=== PATIENT | female | born 1970 | race Two or more races ===

== ENCOUNTER 2024-10-08 06:11 | Inpatient (IN) | payer BC ==
[~2024-10-08] VITALS: Ht 165.1 cm; Wt 80.2 kg
[~2024-10-08 06:11] MED LIST: ATOR-507 PO; CHOLCAP4 PO; DIVA-139 PO; LEVO25CA3 PO; SERT-206 PO
[2024-10-08] MEDS ORDERED: DexAMETHasone SOD PHOS 10MG/1ML VIAL INJ ONE (07:22)
[2024-10-08] MEDS ORDERED: fentaNYL CITRATE 100 MCG/2 ML VL ONE (07:22)
[2024-10-08] MEDS ORDERED: MEPERIDINE HCL (50 MG/ML) 1 ML VIAL ONE (07:22)
[2024-10-08] MEDS ORDERED: MIDAZOLAM HCL 2MG/2ML 2ml VIAL (1mg/ml) ONE (07:22)
[2024-10-08] MEDS ORDERED: PROPOFOL 10 MG/ML 20 ML IV ONE (07:25)
[2024-10-08] MEDS: CIPROFLOXACIN 400MG/200ML 200 ML IV ONE (07:54)
[2024-10-08] MEDS: SUCCINYLCHOLINE CHLORIDE 20 MG/ML 10ML VIAL IV ONE (08:01)
[2024-10-08] MEDS: IOHEXOL 300 MG/ML 100ML BOTTLE IJ ONE (08:24)
[2024-10-08] MEDS ORDERED: MIDAZOLAM HCL 2MG/2ML 2ml VIAL (1mg/ml) IV PRN (08:30)
[2024-10-08] MEDS ORDERED: HYDROmorphone HCL 2 MG/ML VL/or syr IV PRN (08:30)
[2024-10-08] MEDS ORDERED: ePHEDrine SULFATE 50 MG/ML AMP IV PRN (08:30)
[2024-10-08] MEDS ORDERED: MORPHINE SULFATE 4 MG/ML SYR/VIAL IV PRN (08:30)
[2024-10-08] MEDS: ONDANSETRON HCL 4 MG/2 ML VIAL IV ONE (08:30)
[2024-10-08] MEDS ORDERED: hydrALAZINE HCL 20 MG/ML VL IV PRN ×2 (08:30→18:15)
[2024-10-08] MEDS: KETOROLAC TROMETH 30 MG/ML 1ML VIAL IV ONE (08:30)
[2024-10-08 09:38] VITALS: RESP 14; O2SAT 97
[2024-10-08] MEDS ORDERED: NITROGLYCERIN 0.4 MG SL TAB SL PRN (09:45)
--- NOTE | 2024-10-08 09:48 | POSTOP ---
Post-Operative Note Post-Operative Note Preop Diagnosis Left nephrolithiasis Left flank pain Postop Diagnosis: Left calyceal diverticular stone Operation performed Left ureteroscopic laser lithotripsy with left ureteral stent placement Left calyceal diverticulectomy Jung insertion Specimen Left renal stones Anesthesia: General Anesthesiologist: Tish Surgeon Parrish Angel Complications & Mgmt Postoperatively patient will be admitted for observation due to excess bleeding from the kidney from the calyceal diverticulotomy Date 10/08/24 Time 09:46 PARRISH ANGEL MD Oct 08, 2024 09:48
--- NOTE | 2024-10-08 10:35 | DVH ---
FLUOROSCOPY TIME: 73.6 seconds TECHNIQUE: Intraoperative radiographs of the abdomen were obtained. COMPARISON: None FINDINGS: Refer to intraoperative report for further evaluation. IMPRESSION: Refer to intraoperative report for further evaluation.
--- NOTE | 2024-10-08 10:35 | DVH ---
FLUOROSCOPY TIME: 73.6 seconds TECHNIQUE: Intraoperative radiographs of the abdomen were obtained. COMPARISON: None FINDINGS: Refer to intraoperative report for further evaluation. IMPRESSION: Refer to intraoperative report for further evaluation.
[2024-10-08 11:19] LABS: Hematocrit 39.2 % (36.0-46.0); Hemoglobin 12.9 g/dL (12.2-16.2)
[2024-10-08] MEDS ORDERED: ETOMIDATE (2MG/ML) 20ML VIAL IV ONE (12:00)
[2024-10-08] MEDS ORDERED: ACETAMINOPHEN IV 100 ML IV ONE (12:07)
[2024-10-08 13:12] VITALS: BP 123/70; PULSE 64; RESP 18; TEMP 97.5; O2SAT 100
[2024-10-08 13:19] VITALS: BP 123/70; PULSE 64; RESP 18; TEMP 97.5; O2SAT 100
--- NOTE | 2024-10-08 15:43 | DVHHP2 ---
Review of Systems Allergies: Coded Allergies: NO KNOWN ALLERGIES (Unverified , 10/06/24) Medications Current Medications Medications Dose Ordered Sig/Silvia Route Start Time Stop Time Status Last Admin Dose Admin Nitroglycerin 0.4 mg Q5MINP PRN SL 10/08/24 09:45 Morphine Sulfate 2 mg Q30M PRN IV 10/08/24 09:45 Exam Vital Signs Vital Signs Date Time Temp Pulse Resp B/P (MAP) Pulse Ox O2 Delivery O2 Flow Rate FiO2 10/08/24 13:19 97.5 64 18 123/70 (87) 100 97.5 10/08/24 10:45 Mask 10.0 100 Labs/Xrays Labs Test 10/08/24 11:07 Range/Units Hemoglobin 12.9 12.2-16.2 g/dL Hematocrit 39.2 36.0-46.0 % Assessment/Plan Assessment/Plan see dictated note Plan discussed with: Patient, Spouse My Orders Orders - JENN GUAJARDO MD Procedure Category Date Status Time Morphine Sulfate PHA 10/08/24 Verified Injection 15:45 Hydrocodone-Acet PHA 10/08/24 Verified 5/325mg Tab (Addison 15:45 Acetaminophen Tablet PHA 10/08/24 Verified (Tylenol Tablet) 15:45 Ondansetron Hcl PHA 10/08/24 Verified (Zofran) 15:45 Levothyroxine Tablet PHA 10/09/24 Verified (Synthroid Tablet) 06:00 Sertraline Hcl PHA 10/09/24 Verified (Zoloft) 10:00 NS PHA 10/08/24 Verified 15:45 Complete Blood Count LAB 10/09/24 Verified 06:00 Comprehensive LAB 10/09/24 Verified Metabolic Panel 06:00 Thyroid Stimulating LAB 10/09/24 Verified Hormone 05:00 Date of Service: Oct 08, 2024 Billing Provider: JENN GUAJARDO MD Common Visit Codes: [id number] INP/OBS CARE (HIGH) JENN GUAJARDO MD Oct 08, 2024 15:43
[2024-10-08] MEDS: SODIUM CHLORIDE 0.9% 1,000 ML IV SCH (15:49)
[2024-10-08] MEDS: HYDROcodone-ACET 5/325MG TAB PO PRN (16:00)
--- NOTE | 2024-10-08 16:00 | DVHHP ---
ADMIT DATE: 10/08/2024 HISTORY OF PRESENT ILLNESS: The patient is a 54-year-old lady who was admitted after she underwent left ureteroscopic laser lithotripsy and developed some bleeding from the kidney from calyceal diverticulotomy. The patient at this time complains of lower abdominal pain. No nausea or vomiting. No chest pain or shortness of breath. REVIEW OF SYSTEMS: Review of rest of systems are otherwise currently negative. PAST MEDICAL HISTORY: Significant for depression, hypothyroidism, and hyperlipidemia. MEDICATIONS: Include Lipitor, sertraline, and levothyroxine. ALLERGIES: No known drug allergies. SOCIAL HISTORY: Denies smoking or alcohol. Lives at home with her . FAMILY HISTORY: Negative. PHYSICAL EXAMINATION: GENERAL: The patient is awake, alert. VITAL SIGNS: Temperature of 97.5, pulse 64 per minute, blood pressure 123/70. SHEENT: Unremarkable. NECK: There is no JVD, no pedal edema. LUNGS: Equal bilaterally. No added sounds. CARDIOVASCULAR: S1, S2 is regular, no murmurs. ABDOMEN: Soft. There is tenderness in the lower abdomen. NEUROLOGIC: Nonfocal. MUSCULOSKELETAL: Normal. GENITOURINARY: The patient has a Jung catheter in place with blood-tinged urine in the bag. ASSESSMENT AND PLAN: * Hypothyroidism for which she will continue on levothyroxine and TSH will be checked. * Depression for which she will continue on Zoloft. * Hyperlipidemia. * Status post laser lithotripsy for left renal calculus. The patient will be monitored for hematuria and placed on IV fluids as well as pain medications. MD TERESA Frances/LAMONTE TID: [id number] RECEIPT: [id number]
[2024-10-08] MEDS ORDERED: ACETAMINOPHEN IV 1000 MG/100ML (10MG/ML) IV PRN (16:45)
[2024-10-08 17:12] VITALS: BP 119/65; PULSE 72; RESP 18; TEMP 98.1; O2SAT 100
[2024-10-08] MEDS: LORazepam 2MG/ML-1ML VIAL ONE ×2 (17:29→17:39)
[2024-10-08] MEDS ORDERED: LORazepam 2MG/ML-1ML VIAL IV ONE (17:45)
[2024-10-08] MEDS ORDERED: LORazepam 2MG/ML-1ML VIAL IV PRN (18:15)
[2024-10-08 19:04] LABS: Potassium 3.9 mmol/L (3.5-5.1); Sodium 140 mmol/L (136-145)
[2024-10-08 19:05] LABS: Anion Gap 11 (5-15); Calcium 9.4 mg/dL (8.7-10.4); Carbon Dioxide 21 mmol/L (20-31)
[2024-10-08 19:10] LABS: BUN/Creatinine Ratio 12.5 (10.0-20.0); Blood Urea Nitrogen 11 mg/dL (9-23)
[2024-10-08 19:14] LABS: Chloride 108 mmol/L (98-107); Glucose 149 mg/dL (74-106); Magnesium 1.6 mg/dL (1.6-2.6)
[2024-10-08 19:42] LABS: Lactic Acid w/Reflex 4.2 mmol/L (0.4-2.0)
[2024-10-08] MEDS: ONDANSETRON HCL 4 MG/2 ML VIAL IV PRN (19:56)
[2024-10-08 20:00] VITALS: RESP 16
[2024-10-08 21:00] VITALS: BP 111/62; PULSE 95; RESP 20; TEMP 99; O2SAT 96
[2024-10-08] MEDS: ACETAMINOPHEN 325 MG TAB PO PRN (22:49)
[2024-10-09] VITALS (8 sets, daily range): BP systolic 92–122; BP diastolic 46–75; PULSE 84–116; RESP 16–19; TEMP 98.2–100.3; O2SAT 96–99
[2024-10-09] MEDS: LEVOTHYROXINE SODIUM 25 MCG TAB PO SCH (05:20)
[2024-10-09 07:47] LABS: Basophils # (auto) 0 10 ^3/uL (0-0.2); Basophils % (auto) 0.1 % (0.0-2.0); Eosinophils # (auto) 0 10 ^3/uL (0-0.8); Hematocrit 37.3 % (36.0-46.0); Hemoglobin 11.9 g/dL (12.2-16.2); Lymphocytes # (auto) 0.7 10 ^3/uL (0.4-5.4); Lymphocytes % (auto) 4.5 % (10.0-50.0); Mean Corpuscular Hemoglobin 27.9 pg (28.0-32.0); Mean Corpuscular Volume 87.1 fL (80.0-100.0); Monocytes # (auto) 0.8 10 ^3/uL (0-1.3); Monocytes % (auto) 5.1 % (0.0-12.0); Neutrophils # (auto) 14.5 10 ^3/uL (1.6-8.6); Neutrophils % (auto) 90.3 % (37.0-80.0); Nucleated Red Blood Cells % 0.2 %; Platelet Count (auto) 169 10^3/uL (140-450); Red Blood Cells 4.29 10^6/uL (4.0-5.20); Red Cell Distribution Width 14.3 % (11.8-14.3)
[2024-10-09 07:59] LABS: Albumin 3.4 g/dL (3.2-4.8); Alkaline Phosphatase 89 U/L (46-116); Anion Gap 10 (5-15); BUN/Creatinine Ratio 15.9 (10.0-20.0); Bilirubin, Total 0.7 mg/dL (0.2-1.0); Blood Urea Nitrogen 17 mg/dL (9-23); Calcium 8.9 mg/dL (8.7-10.4); Carbon Dioxide 23 mmol/L (20-31); Chloride 107 mmol/L (98-107); Sodium 140 mmol/L (136-145); Total Protein 5.7 g/dL (5.7-8.2)
[2024-10-09 08:01] LABS: Alanine Aminotransferase 297 U/L (7-40); Aspartate Aminotransferase 150 U/L (13-40); Glucose 136 mg/dL (74-106)
--- NOTE | 2024-10-09 09:33 | DVH ---
EXAM: CT HEAD WITHOUT CONTRAST HISTORY: S/P SEIZURES COMPARISON: None TECHNIQUE: Axial images of the head were obtained and reformatted in coronal and sagittal planes. All CT scans at this medical facility are performed using dose modulation techniques as appropriate t o a performed exam including the following: Automated exposure control was utilized; adjustment of th e MA and/or KV according to patient size; and use of iterative reconstruction technique. CT Dose: CTDI volume is 56.78 mGy. Dose-length product is 796.63 mGy*cm FINDINGS: There is no evidence of acute intracranial hemorrhage, mass, mass effect midline shift. There is no h ydrocephalus or extra-axial fluid collection. Trammell-white matter differentiation is maintained. The visualized paranasal sinuses and mastoid air cells are clear. The calvarium is intact. IMPRESSION: 1. No acute intracranial process. HS:Y
--- NOTE | 2024-10-09 09:36 | DVHPN2 ---
Progress Note - Dictate Date Seen: Oct 09, 2024 Medical Necessity Reason Pt with a Central, PICC or Fol: Yes The following are medically ne: Solomon Catheter Reason for solomon catheter: Bladder Retention/Obstruc vital signs Vital Sign Date Time Temp Pulse Resp B/P (MAP) Pulse Ox O2 Delivery O2 Flow Rate FiO2 10/09/24 09:00 98.2 84 18 92/50 (64) 99 98.2 10/08/24 20:00 Nasal Cannula* 3 32 Total Intake and Output 10/08/24 10/08/24 10/09/24 15:00 23:00 07:00 Intake Total 200 ml 435 ml 500 ml Output Total 800 ml 1200 ml Balance 200 ml -365 ml -700 ml medications Current Medications Medications Dose Ordered Sig/Silvia Route Start Time Stop Time Status Last Admin Dose Admin Nitroglycerin 0.4 mg Q5MINP PRN SL 10/08/24 09:45 Morphine Sulfate 2 mg Q30M PRN IV 10/08/24 09:45 Morphine Sulfate 2 mg Q4HPRN PRN IV 10/08/24 15:45 Acetaminophen/ Hydrocodone Bitart 1 tab Q6HPRN PRN PO 10/08/24 15:45 10/08/24 16:00 1 TAB Acetaminophen 650 mg Q6HP PRN PO 10/08/24 15:45 10/09/24 05:20 650 MG Ondansetron HCl 4 mg Q6HPRN PRN IV 10/08/24 15:45 10/09/24 05:25 4 MG Levothyroxine Sodium 25 mcg QAM@0600 PO 10/09/24 06:00 10/09/24 05:20 25 MCG Sertraline HCl 50 mg DAILY PO 10/09/24 10:00 Sodium Chloride 1,000 ml @ 75 mls/hr [id number] IV 10/08/24 15:45 10/08/24 15:49 75 MLS/HR Lorazepam 1 mg Q6HP PRN IV 10/08/24 18:15 Hydralazine HCl 10 mg Q6HP PRN IV 10/08/24 18:15 Divalproex Sodium 250 mg BID PO 10/08/24 22:00 10/08/24 21:20 250 MG laboratory and microbiology Laboratory Tests 10/09/24 06:53 Test 10/09/24 06:53 Range/Units Serum Glucose 136 H 74-106 mg/dL Assessment/Plan CT A/P non con keep solomon monitor H&H Problems(with codes): (1) Hematuria (2) Calyceal diverticulum (3) Renal stone Prognosis good Plan discussed with: Patient SILAS VU NP Oct 09, 2024 09:36
[2024-10-09] MEDS ORDERED: SERTRALINE HCL 50 MG TAB PO SCH (10:00)
--- NOTE | 2024-10-09 10:40 | DVH ---
CT ABDOMEN AND PELVIS WITHOUT CONTRAST CLINICAL HISTORY: hematuria post op calyceal diverticulectomy TECHNIQUE: Multiple contiguous axial images of the abdomen and pelvis without intravenous contrast. The images were reformatted degenerate coronal and sagittal reconstructions. All CT scans at this medical facility are performed using dose modulation techniques as appropriate t o a performed exam including the following:Automated exposure control was utilized; adjustment of the MA and/or KV according to patient size; and use of iterative reconstruction technique. Radiation Dose Information: CT Dose: CTDI volume is 9.03 mGy. Dose-length product is 469.01 mGy*cm Comparison: None FINDINGS: Evaluation of the abdomen and pelvis is limited without intravenous contrast. There are multiple bilateral subcentimeter renal calculi, largest in the left lower pole measuring 9 mm. There is a left ureteral stent with the proximal loop in the left renal pelvis and the distal loo p along the left posterolateral bladder. There is no evidence of hydronephrosis or hydroureter. There is moderate amount of perinephric fat stranding surrounding the left kidney and along the left urete r which May relate to placement of the ureteral stent. There is diffuse fatty infiltration of the liver. Gallbladder is surgically absent. The pancreas , kidneys, adrenal glands, and spleen appear within normal limits. There is no gross evidence of abdominal lymphadenopathy. There is no free fluid or free air. The stomach grossly appears unremarkable. The small and large bowel loops demonstrate normal caliber . The abdominal aorta and IVC appear within normal limits. There is a Jung catheter within the bladder which is decompressed. There is no obvious bladder calcu lindsay. . There is no gross evidence of a pelvic mass. There is no free fluid collection. There is scarring versus atelectasis in the posterior lung bases. There is no acute osseous abnormality. IMPRESSION: 1. Multiple bilateral subcentimeter renal calculi, the largest in the left lower pole measuring 9 mm. There is no evidence of hydronephrosis. 2. Left ureteral stent is in place. There is no evidence of a ureteral calculus or hydroureter. There is moderate amount of fat stranding surrounding the left kidney and along the left ureter which May relate to placement of the stent. 3. Hepatic steatosis. 4. Cholecystectomy. HS:Y
--- NOTE | 2024-10-09 10:47 | DVHPN2 ---
Subjective Feeling very weak with increasing left flank pain Reviewed: Care Plan, H&P, Labs, Medications, Previous Orders, Radiology, Other (Consultation) Changes from previous H/P or p: Changes Objective Vitals Vital Signs Date Time Temp Pulse Resp B/P (MAP) Pulse Ox O2 Delivery O2 Flow Rate FiO2 10/09/24 09:00 98.2 84 18 92/50 (64) 99 98.2 10/08/24 20:00 Nasal Cannula* 3 32 Intake/Output Intake and Output 10/09/24 07:00 Intake Total 1135 ml Output Total 2000 ml Balance -865 ml Intake Oral 710 ml IV Total 425 ml Output Urine Total 2000 ml General Appearance: Alert, Oriented X3, Cooperative, moderate distress, Other (Sweaty) HEENT: Atraumatic Lungs: Clear to auscultation, Normal air movement Cardiovascular: Normal S1, Normal S2, Other (Tachycardia) Abdomen: Normal bowel sounds, Soft, Other (Left CVA/flank tenderness) Genitourinary: Other (Jung's) Neuro: Normal speech, Cranial nerves 3-12 NL Psych/Mental Status: Mental status NL Medications Current Medications Medications Dose Ordered Sig/Silvia Route Start Time Stop Time Status Last Admin Dose Admin Nitroglycerin 0.4 mg Q5MINP PRN SL 10/08/24 09:45 Morphine Sulfate 2 mg Q30M PRN IV 10/08/24 09:45 Morphine Sulfate 2 mg Q4HPRN PRN IV 10/08/24 15:45 Acetaminophen/ Hydrocodone Bitart 1 tab Q6HPRN PRN PO 10/08/24 15:45 10/08/24 16:00 1 TAB Acetaminophen 650 mg Q6HP PRN PO 10/08/24 15:45 10/09/24 05:20 650 MG Ondansetron HCl 4 mg Q6HPRN PRN IV 10/08/24 15:45 10/09/24 05:25 4 MG Levothyroxine Sodium 25 mcg QAM@0600 PO 10/09/24 06:00 10/09/24 05:20 25 MCG Sertraline HCl 50 mg DAILY PO 10/09/24 10:00 Sodium Chloride 1,000 ml @ 75 mls/hr [id number] IV 10/08/24 15:45 10/08/24 15:49 75 MLS/HR Lorazepam 1 mg Q6HP PRN IV 10/08/24 18:15 Hydralazine HCl 10 mg Q6HP PRN IV 10/08/24 18:15 Divalproex Sodium 250 mg BID PO 10/08/24 22:00 10/08/24 21:20 250 MG Laboratory Results Laboratory Tests 10/09/24 06:53 Chemistry Test 10/08/24 18:28 12 06:53 Calcium Level 9.4 mg/dL (8.7-10.4) 8.9 mg/dL (8.7-10.4) Magnesium Level 1.6 mg/dL (1.6-2.6) Albumin 3.4 g/dL (3.2-4.8) Total Protein 5.7 g/dL (5.7-8.2) LFT Test 10/09/24 06:53 Alanine Aminotransferase (ALT) 297 U/L (7-40) H Alkaline Phosphatase 89 U/L (46-116) Aspartate Amino Transferase (AST) 150 U/L (13-40) H Total Bilirubin 0.7 mg/dL (0.2-1.0) HgA1c, TSH Test 10/08/24 18:28 12 06:53 Thyroid Stimulating Hormone (TSH) 0.97 uIU/mL (0.55-4.78) 0.81 uIU/mL (0.55-4.78) Microbiology Microbiology Date/Time Source Procedure Growth Status 10/08/24 18:28 Blood Blood Culture - Preliminary Resulted Labs and/or images reviewed: Labs reviewed by me, Image(s) reviewed by me Assessment/Plan Assessment/Plan Covering Dr. Dumont: #Sepsis with fever, tachycardic, leukocytosis and lactic acidosis due to Gram negative rods bacteremia secondary to complicated UTI; reviewed the blood culture; started broad-spectrum IV antibiotics; ordered repeat blood cultures; continue monitoring #BRANDON; most likely vasomotor nephropathy; avoid nephrotoxic agents; continue IV fluids; continue monitoring #Left flank pain secondary to left renal stones status post laser lithotripsy status post Jung's catheter; continue IV fluids; urology is following; continue pain management as indicated; continue monitoring #Hypothyroidism; continue levothyroxine; continue monitoring #Dyslipidemia; continue current medical management; continue monitoring #Depression; no suicide ideation/plans; continue current medical management; continue monitoring #Obesity; counseled the patient on the importance of adopting healthy lifestyle with diet and exercise in order to lose weight; continue monitoring Goals of care discussed for 20 minutes; full code. Late Entry. This medical document was created using an electronic medical record system with computerized dictation system. Although this document has been carefully reviewed, there might still be some phonetic and typographical errors. These areas are purely typographical due to imperfections of the software programs, and do not reflect any compromise in the patient's medical care. Plan discussed with: Patient, Other (Nurse) Date of Service: Oct 09, 2024 Billing Provider: MUKESH NORMAN MD Common Visit Codes: [id number] INP/OBS CARE(HIGH) Secondary Visit Codes: [id number] CARE PLAN 30 MINUTES (20 minutes) MUKESH NORMAN MD Oct 09, 2024 10:47
[2024-10-09] MEDS: cefTRIAXone 1GM/50ML D5W 50 ML IV ONE (11:21)
[2024-10-09] MEDS: SERTRALINE HCL 50 MG TAB PO SCH (11:22)
[2024-10-09] MEDS ORDERED: cefEPIME 1gm INJ VIAL IM ONE (12:45)
[2024-10-09] MEDS ORDERED: VANCOMYCIN PER PHARMACY 0 MG IV SCH (12:45)
[2024-10-09] MEDS: VANCOMYCIN 1GM/250ML KIT 250 ML IV SCH (14:02)
[2024-10-09] MEDS: CEFEPIME 1GM/ 50ML 50 ML IV ONE (17:58)
[2024-10-10] VITALS (7 sets, daily range): BP systolic 106–134; BP diastolic 60–80; PULSE 94–117; RESP 16–19; TEMP 98.8–101.5; O2SAT 95–99
[2024-10-10] MEDS: VANCOMYCIN 1GM/250ML KIT 250 ML IV SCH (05:15)
[2024-10-10 08:25] LABS: Hematocrit 35.7 % (36.0-46.0); Hemoglobin 12.2 g/dL (12.2-16.2); Mean Corpuscular Hemoglobin 29.6 pg (28.0-32.0); Mean Corpuscular Hgb Conc. 34.1 g/dL (32.0-36.0); Mean Corpuscular Volume 86.6 fL (80.0-100.0); Platelet Count (auto) 123 10^3/uL (140-450); Red Blood Cells 4.12 10^6/uL (4.0-5.20); Red Cell Distribution Width 14.3 % (11.8-14.3); White Blood Cell 9.9 10^3/uL (4.4-10.8)
[2024-10-10 08:29] LABS: Albumin 3.3 g/dL (3.2-4.8); Alkaline Phosphatase 99 U/L (46-116); Anion Gap 6 (5-15); BUN/Creatinine Ratio 14.5 (10.0-20.0); Blood Urea Nitrogen 16 mg/dL (9-23); Carbon Dioxide 27 mmol/L (20-31); Chloride 104 mmol/L (98-107); Potassium 4.1 mmol/L (3.5-5.1); Sodium 137 mmol/L (136-145)
[2024-10-10 08:31] LABS: Bilirubin, Total 0.7 mg/dL (0.2-1.0); Total Protein 5.8 g/dL (5.7-8.2)
[2024-10-10 08:34] LABS: Alanine Aminotransferase 180 U/L (7-40); Aspartate Aminotransferase 61 U/L (13-40); Glucose 167 mg/dL (74-106)
[2024-10-10 08:57] LABS: Basophils % (manual) 0 (0.0-2.0); Blast Cells 0; Eosinophils % (manual) 0 (0-7); Metamyelocytes % 0; Myelocytes % 0; Promyelocytes % 0; Reactive Lymphocytes 0
[2024-10-10] MEDS ORDERED: cefTRIAXone 1GM/50ML D5W 50 ML IV SCH (09:00)
[2024-10-10 09:25] LABS: Band Neutrophils % (manual) 2; Lymphocytes % (manual) 11 (10.0-50.0); Monocytes % (manual) 15 (0-12)
[2024-10-10 09:43] LABS: Platelet Estimate Decreased
[2024-10-10] MEDS: CEFEPIME 2GM/50ML NS 50 ML IV SCH (10:04)
--- NOTE | 2024-10-10 12:17 | DVHPN2 ---
Subjective The patient seen and examined at bedside. Still complain of flank pain. Patient is nauseated but no vomiting. Reviewed: Care Plan, H&P, Labs, Medications, Previous Orders, Radiology Changes from previous H/P or p: No Changes Objective Vitals Vital Signs Date Time Temp Pulse Resp B/P (MAP) Pulse Ox O2 Delivery O2 Flow Rate FiO2 10/10/24 09:01 100.1 10/10/24 09:00 117 16 124/75 (91) 98 10/09/24 20:00 Nasal Cannula* 3 32 Intake/Output Intake and Output 10/10/24 07:00 Intake Total 1500 ml Output Total 1375 ml Balance 125 ml Intake Oral 1500 ml Output Urine Total 1375 ml # Bowel Movements 3 General Appearance: Alert, Oriented X3, Cooperative, No acute distress HEENT: Atraumatic, PERRLA, EOMI, Mucous membr. moist/pink Neck: Supple Lungs: Clear to auscultation, Normal air movement Cardiovascular: Regular rate, Normal S1, Normal S2, No murmurs, Gallops, Rubs Abdomen: Normal bowel sounds, Soft, No tenderness Neuro: Cranial nerves 3-12 NL Psych/Mental Status: Mental status NL Medications Current Medications Medications Dose Ordered Sig/Silvia Route Start Time Stop Time Status Last Admin Dose Admin Nitroglycerin 0.4 mg Q5MINP PRN SL 10/08/24 09:45 Morphine Sulfate 2 mg Q30M PRN IV 10/08/24 09:45 Morphine Sulfate 2 mg Q4HPRN PRN IV 10/08/24 15:45 Acetaminophen/ Hydrocodone Bitart 1 tab Q6HPRN PRN PO 10/08/24 15:45 10/10/24 02:50 1 TAB Acetaminophen 650 mg Q6HP PRN PO 10/08/24 15:45 10/10/24 09:01 650 MG Ondansetron HCl 4 mg Q6HPRN PRN IV 10/08/24 15:45 10/09/24 18:13 4 MG Levothyroxine Sodium 25 mcg QAM@0600 PO 10/09/24 06:00 10/10/24 05:15 25 MCG Sertraline HCl 50 mg DAILY PO 10/09/24 10:00 10/10/24 10:04 50 MG Sodium Chloride 1,000 ml @ 75 mls/hr [id number] IV 10/08/24 15:45 10/10/24 07:45 75 MLS/HR Lorazepam 1 mg Q6HP PRN IV 10/08/24 18:15 Hydralazine HCl 10 mg Q6HP PRN IV 10/08/24 18:15 Divalproex Sodium 250 mg BID PO 10/08/24 22:00 10/10/24 10:04 250 MG Vancomycin HCl 0 ml @ 0 mls/hr UD IV 10/09/24 12:45 Vancomycin HCl 250 ml @ 250 mls/hr Q12H IV 10/10/24 05:00 10/10/24 05:15 250 MLS/HR Cefepime HCl 50 ml @ 12.5 mls/hr Q12HR IV 10/10/24 10:00 10/10/24 10:04 12.5 MLS/HR Laboratory Results Laboratory Tests 10/10/24 06:50 Chemistry Test 10/10/24 06:50 Albumin 3.3 g/dL (3.2-4.8) Calcium Level 9.0 mg/dL (8.7-10.4) Total Protein 5.8 g/dL (5.7-8.2) LFT Test 10/10/24 06:50 Alanine Aminotransferase (ALT) 180 U/L (7-40) H Alkaline Phosphatase 99 U/L (46-116) Aspartate Amino Transferase (AST) 61 U/L (13-40) H Total Bilirubin 0.7 mg/dL (0.2-1.0) Microbiology Microbiology Date/Time Source Procedure Growth Status 10/09/24 15:28 Blood Blood Culture - Preliminary Resulted 10/09/24 14:10 Urine - Jung Port Urine Culture - Preliminary Resulted Labs and/or images reviewed: Labs reviewed by me Assessment/Plan Assessment/Plan #Sepsis with fever, tachycardic, leukocytosis and lactic acidosis due to Gram negative rods bacteremia secondary to complicated UTI; reviewed the blood culture; started broad-spectrum IV antibiotics: Vancomycin and Cefepime; we will follow up with repeat blood cultures and urine culture; continue monitoring #BRANDON; most likely vasomotor nephropathy; avoid nephrotoxic agents; continue IV fluids; continue monitoring #Left flank pain secondary to left renal stones status post laser lithotripsy status post Jung's catheter; continue IV fluids; urology is following; continue pain management as indicated; continue monitoring #Hypothyroidism; continue levothyroxine; continue monitoring #Dyslipidemia; continue current medical management; continue monitoring #Depression; no suicide ideation/plans; continue current medical management; continue monitoring #Obesity; counseled the patient on the importance of adopting healthy lifestyle with diet and exercise in order to lose weight; continue monitoring This medical document was created using an electronic medical record system with [employer] computerized dictation system. Although this document has been carefully reviewed, there may still be some phonetic and typographical errors. These areas are purely typographical due to imperfections of the software programs, and do not reflect any compromise in the patient's medical care. Plan discussed with: Patient, Spouse Date of Service: Oct 10, 2024 Billing Provider: LUKE ALTAMIRANO MD Common Visit Codes: [id number] INP/OBS CARE(HIGH) LUKE ALTAMIRANO MD Oct 10, 2024 12:17
[2024-10-11] VITALS (9 sets, daily range): BP systolic 90–136; BP diastolic 58–78; PULSE 68–99; RESP 17–20; TEMP 98.5–100.9; O2SAT 86–100
[2024-10-11] MEDS: MORPHINE SULFATE INJ 2 MG/ml SYRG IV PRN ×2 (00:59→08:38)
[2024-10-11 07:57] LABS: Hematocrit 34.3 % (36.0-46.0); Hemoglobin 11.4 g/dL (12.2-16.2); Mean Corpuscular Hemoglobin 28.7 pg (28.0-32.0); Mean Corpuscular Hgb Conc. 33.3 g/dL (32.0-36.0); Mean Corpuscular Volume 86.1 fL (80.0-100.0); Platelet Count (auto) 120 10^3/uL (140-450); Red Blood Cells 3.99 10^6/uL (4.0-5.20); Red Cell Distribution Width 14.1 % (11.8-14.3); White Blood Cell 7.9 10^3/uL (4.4-10.8)
[2024-10-11 08:09] LABS: Basophils % (manual) 0 (0.0-2.0); Blast Cells 0; Eosinophils % (manual) 0 (0-7); Metamyelocytes % 0; Myelocytes % 0; Promyelocytes % 0; Reactive Lymphocytes 0
[2024-10-11 08:38] LABS: Band Neutrophils % (manual) 3; Lymphocytes % (manual) 3 (10.0-50.0); Monocytes % (manual) 18 (0-12)
[2024-10-11 08:39] LABS: Large Platelets FEW; Platelet Estimate Decreased
--- NOTE | 2024-10-11 13:09 | DVHPN2 ---
Subjective The patient is seen and examined at bedside. She still complain of flank pain and not feeling so well. She nauseated but no vomiting. Reviewed: Care Plan, H&P, Labs, Medications, Previous Orders, Radiology, Other (Consultation) Changes from previous H/P or p: No Changes Objective Vitals Vital Signs Date Time Temp Pulse Resp B/P (MAP) Pulse Ox O2 Delivery O2 Flow Rate FiO2 10/11/24 09:00 100.9 89 20 136/73 (94) 100 100.9 10/10/24 20:00 Nasal Cannula* 3 32 Intake/Output Intake and Output 10/11/24 07:00 Intake Total 1300 ml Output Total 2450 ml Balance -1150 ml Intake Oral 800 ml IV Total 500 ml Output Urine Total 2450 ml General Appearance: Alert, Oriented X3, Cooperative, moderate distress, Other (Sweaty) HEENT: Atraumatic Lungs: Clear to auscultation, Normal air movement Cardiovascular: Normal S1, Normal S2, Other (Tachycardia) Abdomen: Normal bowel sounds, Soft, Other (Left CVA/flank tenderness) Genitourinary: Other (Jung's) Neuro: Normal speech, Cranial nerves 3-12 NL Psych/Mental Status: Mental status NL Medications Current Medications Medications Dose Ordered Sig/Silvia Route Start Time Stop Time Status Last Admin Dose Admin Nitroglycerin 0.4 mg Q5MINP PRN SL 10/08/24 09:45 Morphine Sulfate 2 mg Q30M PRN IV 10/08/24 09:45 10/11/24 08:38 2 MG Morphine Sulfate 2 mg Q4HPRN PRN IV 10/08/24 15:45 10/11/24 00:59 2 MG Acetaminophen/ Hydrocodone Bitart 1 tab Q6HPRN PRN PO 10/08/24 15:45 10/10/24 15:12 1 TAB Acetaminophen 650 mg Q6HP PRN PO 10/08/24 15:45 10/11/24 08:38 650 MG Ondansetron HCl 4 mg Q6HPRN PRN IV 10/08/24 15:45 10/11/24 00:56 4 MG Levothyroxine Sodium 25 mcg QAM@0600 PO 10/09/24 06:00 10/11/24 05:34 25 MCG Sertraline HCl 50 mg DAILY PO 10/09/24 10:00 10/11/24 08:35 50 MG Sodium Chloride 1,000 ml @ 75 mls/hr [id number] IV 10/08/24 15:45 10/10/24 21:09 75 MLS/HR Lorazepam 1 mg Q6HP PRN IV 10/08/24 18:15 Hydralazine HCl 10 mg Q6HP PRN IV 10/08/24 18:15 Divalproex Sodium 250 mg BID PO 10/08/24 22:00 10/11/24 08:35 250 MG Vancomycin HCl 0 ml @ 0 mls/hr UD IV 10/09/24 12:45 Cefepime HCl 50 ml @ 12.5 mls/hr Q12HR IV 10/10/24 10:00 10/11/24 08:34 12.5 MLS/HR Laboratory Results Laboratory Tests 10/10/24 06:50 10/11/24 07:05 Microbiology Microbiology Date/Time Source Procedure Growth Status 10/09/24 15:28 Blood Blood Culture - Preliminary Resulted 10/09/24 14:10 Urine - Jung Port Urine Culture - Final Escherichia coli - ESBL Complete Labs and/or images reviewed: Labs reviewed by me Assessment/Plan Assessment/Plan #Sepsis with fever, tachycardic, leukocytosis and lactic acidosis due to Gram negative rods bacteremia secondary to complicated UTI; urine culture today shows ESBL E coli, sensitive to meropenem. Blood culture still pending #BRADNON; most likely vasomotor nephropathy; avoid nephrotoxic agents; continue IV fluids; continue monitoring #Left flank pain secondary to left renal stones status post laser lithotripsy status post Jung's catheter; continue IV fluids; urology is following; continue pain management as indicated; continue monitoring #Hypothyroidism; continue levothyroxine; continue monitoring #Dyslipidemia; continue current medical management; continue monitoring #Depression; no suicide ideation/plans; continue current medical management; continue monitoring #Obesity; counseled the patient on the importance of adopting healthy lifestyle with diet and exercise in order to lose weight; continue monitoring Discussed in length with and patient at bedside. The urine culture now come back with you ESBL so I am going to discontinuing vancomycin and cefepime and start the patient on meropenem 1 g IV Q 8 hours. We will follow up with blood culture. Continuing pain medication. Continuing with Zofran p.r.n. for nausea or vomiting. Plan discussed with: Patient, Spouse Date of Service: Oct 11, 2024 Billing Provider: LUKE ALTAMIRANO MD Common Visit Codes: [id number] INP/OBS CARE(HIGH) LUKE ALTAMIRANO MD Oct 11, 2024 13:09
--- NOTE | 2024-10-11 13:11 | DVHPN2 ---
Reviewed: Care Plan, H&P, Labs, Medications, Previous Orders, Radiology, Other (Consultation) Objective Vitals Vital Signs Date Time Temp Pulse Resp B/P (MAP) Pulse Ox O2 Delivery O2 Flow Rate FiO2 10/11/24 09:00 100.9 89 20 136/73 (94) 100 100.9 10/10/24 20:00 Nasal Cannula* 3 32 Intake/Output Intake and Output 10/11/24 07:00 Intake Total 1300 ml Output Total 2450 ml Balance -1150 ml Intake Oral 800 ml IV Total 500 ml Output Urine Total 2450 ml General Appearance: Alert, Oriented X3, Cooperative, moderate distress, Other (Sweaty) HEENT: Atraumatic Lungs: Clear to auscultation, Normal air movement Cardiovascular: Normal S1, Normal S2, Other (Tachycardia) Abdomen: Normal bowel sounds, Soft, Other (Left CVA/flank tenderness) Genitourinary: Other (Jung's) Neuro: Normal speech, Cranial nerves 3-12 NL Psych/Mental Status: Mental status NL Medications Current Medications Medications Dose Ordered Sig/Silvia Route Start Time Stop Time Status Last Admin Dose Admin Nitroglycerin 0.4 mg Q5MINP PRN SL 10/08/24 09:45 Morphine Sulfate 2 mg Q30M PRN IV 10/08/24 09:45 10/11/24 08:38 2 MG Morphine Sulfate 2 mg Q4HPRN PRN IV 10/08/24 15:45 10/11/24 00:59 2 MG Acetaminophen/ Hydrocodone Bitart 1 tab Q6HPRN PRN PO 10/08/24 15:45 10/10/24 15:12 1 TAB Acetaminophen 650 mg Q6HP PRN PO 10/08/24 15:45 10/11/24 08:38 650 MG Ondansetron HCl 4 mg Q6HPRN PRN IV 10/08/24 15:45 10/11/24 00:56 4 MG Levothyroxine Sodium 25 mcg QAM@0600 PO 10/09/24 06:00 10/11/24 05:34 25 MCG Sertraline HCl 50 mg DAILY PO 10/09/24 10:00 10/11/24 08:35 50 MG Sodium Chloride 1,000 ml @ 75 mls/hr [id number] IV 10/08/24 15:45 10/10/24 21:09 75 MLS/HR Lorazepam 1 mg Q6HP PRN IV 10/08/24 18:15 Hydralazine HCl 10 mg Q6HP PRN IV 10/08/24 18:15 Divalproex Sodium 250 mg BID PO 10/08/24 22:00 10/11/24 08:35 250 MG Vancomycin HCl 0 ml @ 0 mls/hr UD IV 10/09/24 12:45 Cefepime HCl 50 ml @ 12.5 mls/hr Q12HR IV 10/10/24 10:00 10/11/24 08:34 12.5 MLS/HR Laboratory Results Laboratory Tests 10/10/24 06:50 10/11/24 07:05 Microbiology Microbiology Date/Time Source Procedure Growth Status 10/09/24 15:28 Blood Blood Culture - Preliminary Resulted 10/09/24 14:10 Urine - [place] Urine Culture - Final Escherichia coli - ESBL Complete LUKE ALTAMIRANO MD Oct 11, 2024 13:11
[2024-10-11] MEDS ORDERED: MEROPENEM 1GM IVPB 50 ML IV SCH (14:00)
[2024-10-11] MEDS ORDERED: VANCOMYCIN 750MG VIAL 750 MG in D5W 5% 250 ML IV SCH (18:00)
[2024-10-11] MEDS: MEROPENEM 1GM IVPB 50 ML IV SCH (18:23)
[2024-10-12] VITALS (8 sets, daily range): BP systolic 103–127; BP diastolic 60–78; PULSE 71–83; RESP 17–21; TEMP 98.1–98.7; O2SAT 95–99
[2024-10-12] MEDS: DOCUSATE SOD 100 MG CAP PO SCH (09:35)
[2024-10-12] MEDS: SODIUM CHLORIDE 0.9% 1,000 ML IV SCH (12:15)
--- NOTE | 2024-10-12 12:22 | DVHPN2 ---
Progress Note Date Seen: Oct 12, 2024 Medical Necessity Reason Pt with a Central, PICC or Fol: Yes The following are medically ne: Solomon Catheter Reason for solomon catheter: Bladder Retention/Obstruc Subjective Patient reports: No new complaints Review of Systems: HEENT:Normal, CVS:Normal, RESPIRATORY:Normal, GI:Normal, :Normal, MSK:Normal, NEURO:Normal Objective vital signs Vital Sign Date Time Temp Pulse Resp B/P (MAP) Pulse Ox O2 Delivery O2 Flow Rate FiO2 10/12/24 09:41 74 18 122/75 10/12/24 09:00 98.1 99 98.1 10/12/24 08:00 Nasal Cannula* 2 28 Total Intake and Output 10/11/24 10/11/24 10/12/24 15:00 23:00 07:00 Intake Total 250 ml 850 ml Output Total 800 ml 2000 ml Balance -550 ml -1150 ml medications Current Medications Medications Dose Ordered Sig/Silvia Route Start Time Stop Time Status Last Admin Dose Admin Nitroglycerin 0.4 mg Q5MINP PRN SL 10/08/24 09:45 Morphine Sulfate 2 mg Q30M PRN IV 10/08/24 09:45 10/11/24 08:38 2 MG Morphine Sulfate 2 mg Q4HPRN PRN IV 10/08/24 15:45 10/12/24 09:41 2 MG Acetaminophen/ Hydrocodone Bitart 1 tab Q6HPRN PRN PO 10/08/24 15:45 10/12/24 05:15 1 TAB Acetaminophen 650 mg Q6HP PRN PO 10/08/24 15:45 10/11/24 08:38 650 MG Ondansetron HCl 4 mg Q6HPRN PRN IV 10/08/24 15:45 10/11/24 22:47 4 MG Levothyroxine Sodium 25 mcg QAM@0600 PO 10/09/24 06:00 10/12/24 05:15 25 MCG Sertraline HCl 50 mg DAILY PO 10/09/24 10:00 10/12/24 09:35 50 MG Sodium Chloride 1,000 ml @ 75 mls/hr [id number] IV 10/08/24 15:45 10/12/24 05:12 75 MLS/HR Lorazepam 1 mg Q6HP PRN IV 10/08/24 18:15 Hydralazine HCl 10 mg Q6HP PRN IV 10/08/24 18:15 Divalproex Sodium 250 mg BID PO 10/08/24 22:00 10/12/24 09:35 250 MG Meropenem 50 ml @ 17 mls/hr Q8HR IV 10/11/24 14:00 UNV Meropenem 50 ml @ 17 mls/hr Q8H IV 10/11/24 16:00 10/12/24 09:34 17 MLS/HR Docusate Sodium 100 mg BID PO 10/12/24 10:00 10/12/24 09:35 100 MG Examination: GENERAL:Normal, HEENT:Normal, NECK:Normal, LUNGS:Normal, CVS:Normal, ABDOMEN:Normal, MSK:Normal, SKIN:Normal, NEURO:Normal, :Normal, :Abnormal (left flank tenderness) laboratory and microbiology Laboratory Tests 10/11/24 07:05 10/10/24 06:50 Test 10/10/24 06:50 Range/Units Serum Glucose 167 H 74-106 mg/dL Microbiology Date/Time Source Procedure Growth Status 10/09/24 15:28 Blood Blood Culture - Preliminary Resulted 10/09/24 14:10 Urine - [place] Urine Culture - Final Escherichia coli - ESBL Complete Problem List/Assessment/Plan Problem List/Assessment/Plan #1 sepsis with esbl ecoli: iv meropenem, ivf, repeat blood cultures, echo #2 Hypothyroidism for which she will continue on levothyroxine and TSH will be checked. #3 Depression for which she will continue on Zoloft. #4 Hyperlipidemia. #5 Status post laser lithotripsy for left renal calculus. The patient will be monitored for hematuria and placed on IV fluids as well as pain medications, repeat kidney usg #6 obesity Plan discussed with: Patient My Orders My Orders Orders - JENN GUAJARDO MD Procedure Category Date Status Time NS PHA 10/12/24 Verified 12:15 Hydromorphone PHA 10/12/24 Verified Injection (Dilaudid 12:15 Nutritional PHA 10/12/24 Verified Supplements (Ensure 18:00 Pantoprazole PHA 10/12/24 Verified (Protonix) 12:15 Pantoprazole PHA 10/13/24 Verified (Protonix) 10:00 Blood Culture JOSE LUIS 10/12/24 Verified 12:11 Echo 2d Mode Cardiac US 10/12/24 Verified DOP 12:11 Urinalysis LAB 10/12/24 Uncollected 12:11 Complete Blood Count LAB 10/13/24 Verified 06:00 Comprehensive LAB 10/13/24 Verified Metabolic Panel 06:00 Kidney US 10/12/24 Verified 12:11 Date of Service: Oct 12, 2024 Billing Provider: JENN GUAJARDO MD Common Visit Codes: [id number] INP/OBS CARE(HIGH) JENN GUAJARDO MD Oct 12, 2024 12:22
--- NOTE | 2024-10-12 13:30 | DVH ---
INDICATION: pain left flank TECHNIQUE: Multiple real-time sonographic images of the kidneys and bladder were obtained. COMPARISON: CT abdomen pelvis 10/09/2024 FINDINGS: The right kidney measures 11.8 cm in length, which is normal in size. There is normal echogenicity of the right kidney. No hydronephrosis. The left kidney measures 12.2 cm in length, which is normal in size. There is normal echogenicity of the left kidney. No hydronephrosis. Multiple subcentimeter left renal calculi. No large intraluminal masses are seen in the bladder. Jung catheter in place. IMPRESSION: 1. Nonobstructing left renal calculi. No hydronephrosis bilaterally. 2. Jung catheter in place. HS:Y
[2024-10-12] MEDS: PANTOPRAZOLE 40 MG/10 ML VIAL INJ IV ONE (14:51)
[2024-10-12] MEDS: HYDROmorphone HCL 2 MG/ML VL/or syr IV PRN (14:54)
--- NOTE | 2024-10-12 15:10 | DVHSR ---
APPROVED REPORT EXAM: Two-dimensional and M-mode echocardiogram with Doppler and color Doppler. Blood Pressure: 122/75 mmHg INDICATION r/o endocarditis RISK FACTORS Height: 5'5", Weight: 186 DIMENSIONS LVDd4.6 (3.8-5.7cm)LA (2D)3.7 (1.9-4.0cm)Aortic Root2.8 (2.0-3.7cm) LVDs2.9 (2.5-4.0cm)LA (MM) (1.9-4.0cm)Aortic Cusp Exc1.9 (1.5-2.0cm) EF (%) 67.0 (55-70%)Rt. Atrium3.8 (1.9-4.0cm)Asc. Aorta cm IVSd1.0 (0.7-1.1cm)RV (D) (1.8-2.4cm) PWd0.6 (0.7-1.1cm) Mitral Valve MitralMitral Stenosis E wave0.79m/sMV Mean GR.mmHg A wave1.14m/sMV Peak GR.mmHg E/A ratio0.72D MVAcm2 DECEL [id number] 1/2 [place] Aortic Valve Aortic ValveAortic Stenosis V11.03m/Elma Mean GR.6mmHg V21.57m/Elma Peak GR.10mmHg LVOT Diameter2.0 (1.8-2.4cm)Doppler AVA2.06cm2 Pulmonic Valve V20.85m/s Tricuspid Valve TR Velocity2.24m/s [id number] Conclusion Normal left ventricular size and dimension. Normal left ventricular systolic function estimated ejec tion fraction 55%. There is a grade 1 diastolic dysfunction. Normal right ventricular size and dimension. Normal right ventricular systolic function. Normal biatrial size and dimension. Normal aortic valve structure and function. Normal mitral valve structure and function. Normal tricuspid valve structure and function. The pulmonary valve is grossly normal. No pericardial effusion.
[2024-10-12 16:57] LABS: Urine Bacteria FEW /hpf (None Seen); Urine Blood 2+ /uL (Negative); Urine Clarity Turbid (Clear); Urine Color Colorless (Yellow); Urine Protein, UAD 1+ (Negative); Urine Specific Gravity 1.015 (1.001-1.035); Urine Squamous Epithelial Cell FEW /hpf (<5); Urine Urobilinogen Normal (Negative); Urine WBC 353 /hpf (0 - 5); Urine pH 6.5 (5.0-9.0)
[2024-10-12] MEDS: Ensure HIGH Protein Vanilla 8oz Bottle PO SCH (17:57)
[2024-10-13 04:56] VITALS: BP 114/68; PULSE 76; RESP 18; TEMP 98.2; O2SAT 95
[2024-10-13 07:11] LABS: Hematocrit 34.2 % (36.0-46.0); Hemoglobin 11.6 g/dL (12.2-16.2); Mean Corpuscular Hemoglobin 28.7 pg (28.0-32.0); Mean Corpuscular Hgb Conc. 33.8 g/dL (32.0-36.0); Platelet Count (auto) 165 10^3/uL (140-450); Red Blood Cells 4.03 10^6/uL (4.0-5.20); Red Cell Distribution Width 14.6 % (11.8-14.3); White Blood Cell 8.4 10^3/uL (4.4-10.8)
[2024-10-13 07:33] LABS: Basophils % (manual) 0 (0.0-2.0); Blast Cells 0; Metamyelocytes % 0; Myelocytes % 0; Promyelocytes % 0; Reactive Lymphocytes 0
[2024-10-13 07:41] LABS: Anion Gap 5 (5-15); Calcium 9.2 mg/dL (8.7-10.4); Carbon Dioxide 27 mmol/L (20-31); Chloride 104 mmol/L (98-107); Potassium 3.5 mmol/L (3.5-5.1); Sodium 136 mmol/L (136-145)
[2024-10-13 07:43] LABS: Alanine Aminotransferase 90 U/L (7-40); Alkaline Phosphatase 334 U/L (46-116); Aspartate Aminotransferase 71 U/L (13-40); BUN/Creatinine Ratio 28.8 (10.0-20.0); Blood Urea Nitrogen 21 mg/dL (9-23); Glucose 109 mg/dL (74-106)
[2024-10-13 07:45] LABS: Albumin 3.3 g/dL (3.2-4.8); Bilirubin, Total 0.7 mg/dL (0.2-1.0); Total Protein 5.9 g/dL (5.7-8.2)
[2024-10-13 08:00] VITALS: PULSE 80; RESP 16; O2SAT 98
[2024-10-13] MEDS: PANTOPRAZOLE 40 MG/10 ML VIAL INJ IV SCH (08:37)
[2024-10-13 08:58] LABS: Band Neutrophils % (manual) 3; Eosinophils % (manual) 1 (0-7); Lymphocytes % (manual) 17 (10.0-50.0); Monocytes % (manual) 11 (0-12); Platelet Estimate Adequate
[2024-10-13 09:04] VITALS: BP 115/68; PULSE 80; RESP 16; TEMP 98.2; O2SAT 98
--- NOTE | 2024-10-13 10:04 | DVHPN2 ---
Progress Note Date Seen: Oct 13, 2024 Medical Necessity Reason Pt with a Central, PICC or Fol: Yes The following are medically ne: Solomon Catheter Reason for solomon catheter: Bladder Retention/Obstruc Subjective Patient reports: No new complaints Review of Systems: HEENT:Normal, CVS:Normal, RESPIRATORY:Normal, GI:Normal, :Normal, MSK:Normal, NEURO:Normal Objective vital signs Vital Sign Date Time Temp Pulse Resp B/P (MAP) Pulse Ox O2 Delivery O2 Flow Rate FiO2 10/13/24 09:04 98.2 80 16 115/68 (84) 98 98.2 10/12/24 20:15 Nasal Cannula* 2 28 Total Intake and Output 10/12/24 10/12/24 10/13/24 15:00 23:00 07:00 Intake Total 580 ml 300 ml Output Total 800 ml Balance -220 ml 300 ml medications Current Medications Medications Dose Ordered Sig/Silvia Route Start Time Stop Time Status Last Admin Dose Admin Nitroglycerin 0.4 mg Q5MINP PRN SL 10/08/24 09:45 Morphine Sulfate 2 mg Q30M PRN IV 10/08/24 09:45 10/11/24 08:38 2 MG Acetaminophen/ Hydrocodone Bitart 1 tab Q6HPRN PRN PO 10/08/24 15:45 10/12/24 05:15 1 TAB Acetaminophen 650 mg Q6HP PRN PO 10/08/24 15:45 10/11/24 08:38 650 MG Ondansetron HCl 4 mg Q6HPRN PRN IV 10/08/24 15:45 10/12/24 20:52 4 MG Levothyroxine Sodium 25 mcg QAM@0600 PO 10/09/24 06:00 10/13/24 06:20 25 MCG Sertraline HCl 50 mg DAILY PO 10/09/24 10:00 10/13/24 08:37 50 MG Lorazepam 1 mg Q6HP PRN IV 10/08/24 18:15 Hydralazine HCl 10 mg Q6HP PRN IV 10/08/24 18:15 Divalproex Sodium 250 mg BID PO 10/08/24 22:00 10/13/24 08:37 250 MG Meropenem 50 ml @ 17 mls/hr Q8HR IV 10/11/24 14:00 UNV Meropenem 50 ml @ 17 mls/hr Q8H IV 10/11/24 16:00 10/13/24 08:36 17 MLS/HR Docusate Sodium 100 mg BID PO 10/12/24 10:00 10/13/24 08:37 100 MG Sodium Chloride 1,000 ml @ 100 mls/hr Q10H IV 10/12/24 12:15 10/12/24 21:08 100 MLS/HR Hydromorphone HCl 1 mg Q4HPRN PRN IV 10/12/24 12:15 10/13/24 08:57 1 MG Enteral Nutritional Formula 240 ml TIDWM PO 10/12/24 18:00 10/13/24 08:00 240 ML Pantoprazole Sodium 40 mg DAILY IV 10/13/24 10:00 10/13/24 08:37 40 MG Examination: GENERAL:Normal, HEENT:Normal, NECK:Normal, LUNGS:Normal, CVS:Normal, ABDOMEN:Normal, MSK:Normal, SKIN:Normal, NEURO:Normal, :Normal laboratory and microbiology Laboratory Tests 10/13/24 06:02 Test 10/13/24 06:02 Range/Units Serum Glucose 109 H 74-106 mg/dL Microbiology Date/Time Source Procedure Growth Status 10/09/24 15:28 Blood Blood Culture - Final Escherichia coli - ESBL Complete 10/09/24 14:10 Urine - [place] Urine Culture - Final Escherichia coli - ESBL Complete Problem List/Assessment/Plan Problem List/Assessment/Plan #1 sepsis with esbl ecoli: iv ertapenem, ivf, repeat blood cultures, echo #2 Hypothyroidism for which she will continue on levothyroxine and TSH will be checked. #3 Depression for which she will continue on Zoloft. #4 Hyperlipidemia. #5 Status post laser lithotripsy for left renal calculus. The patient will be monitored for hematuria and placed on IV fluids as well as pain medications, repeat kidney usg #6 obesity Plan discussed with: Patient My Orders My Orders Orders - JENN GUAJARDO MD Procedure Category Date Status Time Sodium Chloride 0.9% PHA 10/12/24 In Process 12:15 Hydromorphone PHA 10/12/24 In Process Injection (Dilaudid 12:15 Nutritional PHA 10/12/24 In Process Supplements (Ensure 18:00 Pantoprazole PHA 10/13/24 In Process (Protonix) 10:00 Blood Culture JOSE LUIS 10/12/24 In Process 12:11 Echo 2d Mode Cardiac US 10/12/24 Resulted DOP 12:11 Kidney US 10/12/24 Resulted 12:11 Pt Request For Service PT 10/13/24 Verified 10:01 Invanz 1gm Ivpb Daily PHA 10/14/24 Verified 10:00 Date of Service: Oct 13, 2024 Billing Provider: JENN GUAJARDO MD Common Visit Codes: [id number] INP/OBS CARE(HIGH) JENN GUAJARDO MD Oct 13, 2024 10:04
[2024-10-13 13:00] VITALS: BP 110/68; PULSE 88; RESP 17; TEMP 98.8; O2SAT 98
[2024-10-13 17:27] VITALS: BP 112/69; PULSE 89; RESP 17; TEMP 98.1; O2SAT 97
[2024-10-13 22:00] VITALS: BP 122/74; PULSE 86; RESP 18; TEMP 98.6; O2SAT 94
[2024-10-14] VITALS (7 sets, daily range): BP systolic 107–124; BP diastolic 61–75; PULSE 69–81; RESP 17–18; TEMP 97.9–99; O2SAT 93–98
[2024-10-14 06:14] LABS: INR 0.98 (0.9-1.15); Partial Thromboplastin Time 26.2 SEC (24.5-34.5); Prothrombin Time 10.4 sec (9.3-11.8)
[2024-10-14 06:20] LABS: Albumin 3.2 g/dL (3.2-4.8); Anion Gap 8 (5-15); Aspartate Aminotransferase 33 U/L (13-40); BUN/Creatinine Ratio 22.7 (10.0-20.0); Blood Urea Nitrogen 15 mg/dL (9-23); Carbon Dioxide 29 mmol/L (20-31); Chloride 104 mmol/L (98-107); Glucose 99 mg/dL (74-106); Sodium 141 mmol/L (136-145)
[2024-10-14 06:21] LABS: Bilirubin, Total 0.5 mg/dL (0.2-1.0)
[2024-10-14 06:35] LABS: Alanine Aminotransferase 69 U/L (7-40); Alkaline Phosphatase 273 U/L (46-116); Potassium 3.4 mmol/L (3.5-5.1); Total Protein 5.5 g/dL (5.7-8.2)
[2024-10-14] MEDS: ERTAPENEM SOD INJ 1 GM in SODIUM CHL 0.9% 50 ML IV SCH (09:30)
--- NOTE | 2024-10-14 09:52 | DVHPN2 ---
Progress Note Date Seen: Oct 14, 2024 Medical Necessity Reason Pt with a Central, PICC or Fol: No Subjective Patient reports: No new complaints Review of Systems: HEENT:Normal, CVS:Normal, RESPIRATORY:Normal, GI:Normal, :Normal, MSK:Normal, NEURO:Normal Objective vital signs Vital Sign Date Time Temp Pulse Resp B/P (MAP) Pulse Ox O2 Delivery O2 Flow Rate FiO2 10/14/24 08:00 74 17 98 Nasal Cannula* 2 28 10/14/24 05:00 98.5 107/63 (78) 98.5 Total Intake and Output 10/13/24 10/13/24 10/14/24 15:00 23:00 07:00 Intake Total 325 ml 650 ml Output Total 1700 ml Balance -1375 ml 650 ml medications Current Medications Medications Dose Ordered Sig/Silvia Route Start Time Stop Time Status Last Admin Dose Admin Nitroglycerin 0.4 mg Q5MINP PRN SL 10/08/24 09:45 Morphine Sulfate 2 mg Q30M PRN IV 10/08/24 09:45 10/11/24 08:38 2 MG Acetaminophen/ Hydrocodone Bitart 1 tab Q6HPRN PRN PO 10/08/24 15:45 10/14/24 06:05 1 TAB Acetaminophen 650 mg Q6HP PRN PO 10/08/24 15:45 10/14/24 02:44 650 MG Ondansetron HCl 4 mg Q6HPRN PRN IV 10/08/24 15:45 10/12/24 20:52 4 MG Levothyroxine Sodium 25 mcg QAM@0600 PO 10/09/24 06:00 10/14/24 06:01 25 MCG Sertraline HCl 50 mg DAILY PO 10/09/24 10:00 10/14/24 09:30 50 MG Lorazepam 1 mg Q6HP PRN IV 10/08/24 18:15 Hydralazine HCl 10 mg Q6HP PRN IV 10/08/24 18:15 Divalproex Sodium 250 mg BID PO 10/08/24 22:00 10/14/24 09:30 250 MG Meropenem 50 ml @ 17 mls/hr Q8HR IV 10/11/24 14:00 UNV Docusate Sodium 100 mg BID PO 10/12/24 10:00 10/14/24 09:30 100 MG Sodium Chloride 1,000 ml @ 100 mls/hr Q10H IV 10/12/24 12:15 10/14/24 09:31 100 MLS/HR Hydromorphone HCl 1 mg Q4HPRN PRN IV 10/12/24 12:15 10/13/24 20:38 1 MG Enteral Nutritional Formula 240 ml TIDWM PO 10/12/24 18:00 10/14/24 08:00 240 ML Pantoprazole Sodium 40 mg DAILY IV 10/13/24 10:00 10/14/24 09:30 40 MG Ertapenem 1 gm/ Sodium Chloride 50 ml @ 100 mls/hr DAILY IV 10/14/24 10:00 10/14/24 09:30 100 MLS/HR Examination: GENERAL:Normal, HEENT:Normal, NECK:Normal, LUNGS:Normal, CVS:Normal, ABDOMEN:Normal, MSK:Normal, SKIN:Normal, NEURO:Normal, :Normal laboratory and microbiology Laboratory Tests 10/14/24 05:10 10/13/24 06:02 Test 10/14/24 05:10 Range/Units Serum Glucose 99 74-106 mg/dL Microbiology Date/Time Source Procedure Growth Status 10/12/24 14:46 Blood Blood Culture - Preliminary NO GROWTH AFTER 24 HOURS OF INCUBATION. Resulted 10/09/24 14:10 Urine - [place] Urine Culture - Final Escherichia coli - ESBL Complete Problem List/Assessment/Plan Problem List/Assessment/Plan #1 sepsis with esbl ecoli: iv ertapenem, ivf, repeat blood cultures, echo #2 Hypothyroidism for which she will continue on levothyroxine and TSH will be checked. #3 Depression for which she will continue on Zoloft. #4 Hyperlipidemia. #5 Status post laser lithotripsy for left renal calculus. The patient will be monitored for hematuria and placed on IV fluids as well as pain medications, repeat kidney usg #6 obesity Plan discussed with: Patient My Orders My Orders Orders - JENN GUAJARDO MD Procedure Category Date Status Time Pt Request For Service PT 10/13/24 Logged 10:01 Ertapenem Sod Inj PHA 10/14/24 In Process (Invanz) 10:00 Dietary Evaluation Review Comments: Monitor PO intake to meet 75%, avoid over-eating Expected Outcomes/Goals: gradual weight loss Date of Service: Oct 14, 2024 Billing Provider: JENN GUAJARDO MD Common Visit Codes: [id number] INP/OBS CARE(HIGH) JENN GUAJARDO MD Oct 14, 2024 09:52
[2024-10-14] MEDS: SODIUM CHLORIDE 0.9% 1,000 ML IV SCH (10:00)
[2024-10-14] MEDS: POTASSIUM CHL 20 Meq TABLET PO ONE (11:09)
[2024-10-15] VITALS (9 sets, daily range): BP systolic 120–149; BP diastolic 46–78; PULSE 77–92; RESP 16–18; TEMP 97.9–99.4; O2SAT 92–97
[2024-10-15 06:38] LABS: Anion Gap 8 (5-15); Carbon Dioxide 28 mmol/L (20-31); Chloride 105 mmol/L (98-107); Sodium 141 mmol/L (136-145)
[2024-10-15 06:44] LABS: BUN/Creatinine Ratio 24.1 (10.0-20.0); Blood Urea Nitrogen 13 mg/dL (9-23); Glucose 94 mg/dL (74-106)
[2024-10-15 06:49] LABS: Potassium 3.2 mmol/L (3.5-5.1)
--- NOTE | 2024-10-15 09:59 | DVHDS2 ---
Discharge Summary Date of Admission Oct 11, 2024 at 15:24 Date of Discharge: Oct 15, 2024 Labs/Diagnostic Data: Laboratory Results Test 10/15/24 05:06 10/14/24 05:10 10/13/24 06:02 10/12/24 16:00 Sodium Level 141 mmol/L (136-145) Potassium Level 3.2 mmol/L (3.5-5.1) Chloride Level 105 mmol/L (98-107) Carbon Dioxide Level 28 mmol/L (20-31) Anion Gap 8 (5-15) Blood Urea Nitrogen 13 mg/dL (9-23) Creatinine 0.54 mg/dL (0.550-1.02) Glomerular Filtration Rate Calc 110 mL/min (>90) BUN/Creatinine Ratio 24.1 (10.0-20.0) Serum Glucose 94 mg/dL (74-106) Calcium Level 9.0 mg/dL (8.7-10.4) Prothrombin Time 10.4 sec (9.3-11.8) Prothrombin Time INR 0.98 (0.9-1.15) Activated Partial Thromboplast Time 26.2 SEC (24.5-34.5) Total Bilirubin 0.5 mg/dL (0.2-1.0) Aspartate Amino Transferase (AST) 33 U/L (13-40) Alanine Aminotransferase (ALT) 69 U/L (7-40) Alkaline Phosphatase 273 U/L (46-116) Total Protein 5.5 g/dL (5.7-8.2) Albumin 3.2 g/dL (3.2-4.8) White Blood Count 8.4 10^3/uL (4.4-10.8) Red Blood Count 4.03 10^6/uL (4.0-5.20) Hemoglobin 11.6 g/dL (12.2-16.2) Hematocrit 34.2 % (36.0-46.0) Mean Corpuscular Volume 85.0 fL (80.0-100.0) Mean Corpuscular Hemoglobin 28.7 pg (28.0-32.0) Mean Corpuscular Hemoglobin Concent 33.8 g/dL (32.0-36.0) Red Cell Distribution Width 14.6 % (11.8-14.3) Platelet Count 165 10^3/uL (140-450) Mean Platelet Volume 8.9 fL (6.9-10.8) Neutrophils (%) (Auto) % (37.0-80.0) Lymphocytes (%) (Auto) % (10.0-50.0) Monocytes (%) (Auto) % (0.0-12.0) Basophils (%) (Auto) % (0.0-2.0) Neutrophils # (Auto) 10 ^3/uL (1.6-8.6) Lymphocytes # (Auto) 10 ^3/uL (0.4-5.4) Monocytes # (Auto) 10 ^3/uL (0-1.3) Differential Total Cells Counted 100.0 (100) Neutrophils % (Manual) 68 (37.0-80.0) Band Neutrophils % (Manual) 3 Lymphocytes % (Manual) 17 (10.0-50.0) Monocytes % (Manual) 11 (0-12) Eosinophils % (Manual) 1 (0-7) Basophils % (Manual) 0 (0.0-2.0) Metamyelocytes % (manual) 0 Myelocytes % (Manual) 0 Promyelocytes % (Manual) 0 Blast Cells % (Manual) 0 Reactive Lymphocytes 0 Platelet Estimate Adequate Urine Color Colorless (Yellow) Urine Clarity Turbid (Clear) Urine pH 6.5 (5.0-9.0) Urine Specific [place] 1.015 (1.001-1.035) Urine Protein 1+ (Negative) Urine Ketones Trace (Negative) Urine Blood 2+ /uL (Negative) Urine Nitrite Negative (Negative) Urine Bilirubin Negative (Negative) Urine Urobilinogen Normal mg/dL (Negative) Urine Leukocyte Esterase 3+ /uL (Negative) Urine RBC 369 /hpf (0 - 4) Urine WBC 353 /hpf (0 - 5) Urine Squamous Epithelial Cells Few /hpf (<5) Urine Bacteria Few /hpf (None Seen) Urine Glucose Normal mg/dL (Normal) Test 10/11/24 12:04 10/11/24 07:05 10/09/24 15:28 10/09/24 06:53 Random Vancomycin Level 19.4 ug/mL (5-10) Large Platelets Few Vancomycin Level Trough 35.2 ug/mL (5-10) Lactic Acid Level 2.8 mmol/L (0.4-2.0) Eosinophils (%) (Auto) 0.0 % (0.0-7.0) Eosinophils # (Auto) 0 10 ^3/uL (0-0.8) Basophils # (Auto) 0 10 ^3/uL (0-0.2) Nucleated Red Blood Cells 0.2 % Thyroid Stimulating Hormone (TSH) 0.81 uIU/mL (0.55-4.78) Test 10/08/24 18:28 10/08/24 17:17 Magnesium Level 1.6 mg/dL (1.6-2.6) Creatine Kinase 59 U/L (34-145) POC Glucose 153 mg/dl (70-106) Other Laboratory Tests 10/15/24 05:06 10/13/24 06:02 Brief Hx & Hospital Course: see dictated note Condition at Discharge: Fair Final Diagnosis/Problems List sepsis Discharge Disposition: Home with Health Services Discharge Instruct/Medications Diet: Regular Activity: No Restrictions, As Tolerated Follow Up/Referral: fu with pcp/urology in 1 wk Medications: resume home meds home iv antibiotics Discharge Statement: "Patient was advised to return to the ER or call 911 if any headaches, dizziness, shortness of breath, chest pain, abdominal pain, bleeding, fevers, or worsening of medical condition. Patient was counseled about treatment plan, medications, possible side effects, patientverbalized understanding. All questions were answered to the best of my ability. This discharge took greater then 30 minutes in planning, reviewing documentation, counseling the patient, and discussing with other team members." ASSESSMENT ASSESSMENT Assessment sepsis Date of Service: Oct 15, 2024 Billing Provider: JENN GUAJARDO MD Common Visit Codes: [id number] DISCH DAY >30min JENN GUAJARDO MD Oct 15, 2024 09:59
[2024-10-15] MEDS: SENNA 8.6 MG TAB PO ONE (11:47)
[2024-10-15] MEDS: LACTULOSE 20Gm/30ML SOLN PO ONE (11:47)
[2024-10-15] MEDS: POTASSIUM CHL 20 Meq TABLET PO ONE (11:48)
--- NOTE | 2024-10-16 00:31 | DVHDS ---
DATE OF DISCHARGE: 10/15/2024 HISTORY OF PRESENT ILLNESS: The patient is a 54-year-old lady, who was admitted after she underwent laser lithotripsy and developed bleeding from the kidney. The patient has history of depression, hypothyroidism and hyperlipidemia. HOSPITAL COURSE: The patient was noted to be septic with ESBL E. coli. The patient had initial four blood cultures positive. Echocardiogram done showed no endocarditis. The patient's cultures were eventually negative. Her liver function tests were elevated, but are improving. The patient is currently febrile. The patient will now be discharged home to be on home IV Invanz 1 gram daily for two weeks and a midline has been placed. She will have home health for IV antibiotics. She will follow up with her primary and Urology in one week. FINAL DIAGNOSES: Therefore, * Sepsis with extended spectrum beta-lactamase Escherichia coli. * Acute respiratory failure. * Status post lithotripsy with hematuria. * Depression. * Hyperlipidemia. * Obesity. * Hypothyroidism. Time spent in discharge planning and review of plan with the patient and nursing and social media designer was 39 minutes. MD TERESA Frances/KAREN/SILVA TID: [id number] RECEIPT: [id number]
[2024-10-16 02:53] VITALS: BP 122/66; PULSE 76; RESP 18; TEMP 98.9; O2SAT 94
[2024-10-16 05:00] VITALS: BP 130/78; PULSE 74; RESP 18; TEMP 99; O2SAT 96
[2024-10-16 08:00] VITALS: PULSE 74; RESP 18; O2SAT 93
[2024-10-16 09:00] VITALS: BP 127/73; PULSE 74; RESP 18; TEMP 98.4; O2SAT 93
--- NOTE | 2024-10-16 13:11 | DVHPN2 ---
Subjective No complaints Reviewed: Care Plan, H&P, Labs, Medications, Previous Orders, Radiology, Other (Consultants) Changes from previous H/P or p: No Changes Objective Vitals Vital Signs Date Time Temp Pulse Resp B/P (MAP) Pulse Ox O2 Delivery O2 Flow Rate FiO2 10/16/24 09:00 98.4 74 18 127/73 (91) 93 98.4 10/15/24 20:00 Room Air* 0 21 Intake/Output Intake and Output 10/16/24 07:00 Intake Total 2400 ml Output Total 800 ml Balance 1600 ml Intake Oral 2400 ml Output Urine Total 800 ml # Voids 1 # Bowel Movements 2 General Appearance: Alert, Oriented X3, Cooperative HEENT: Atraumatic Lungs: Clear to auscultation Cardiovascular: Regular rate Abdomen: Normal bowel sounds, Soft Genitourinary: Other (Jung's) Neuro: Normal speech Psych/Mental Status: Mental status NL Medications Current Medications Medications Dose Ordered Sig/Silvia Route Start Time Stop Time Status Last Admin Dose Admin Nitroglycerin 0.4 mg Q5MINP PRN SL 10/08/24 09:45 Morphine Sulfate 2 mg Q30M PRN IV 10/08/24 09:45 10/11/24 08:38 2 MG Acetaminophen/ Hydrocodone Bitart 1 tab Q6HPRN PRN PO 10/08/24 15:45 10/15/24 19:32 1 TAB Acetaminophen 650 mg Q6HP PRN PO 10/08/24 15:45 10/14/24 18:45 650 MG Ondansetron HCl 4 mg Q6HPRN PRN IV 10/08/24 15:45 10/12/24 20:52 4 MG Levothyroxine Sodium 25 mcg QAM@0600 PO 10/09/24 06:00 10/16/24 05:13 25 MCG Sertraline HCl 50 mg DAILY PO 10/09/24 10:00 10/16/24 10:28 50 MG Lorazepam 1 mg Q6HP PRN IV 10/08/24 18:15 Hydralazine HCl 10 mg Q6HP PRN IV 10/08/24 18:15 Divalproex Sodium 250 mg BID PO 10/08/24 22:00 10/16/24 10:28 250 MG Meropenem 50 ml @ 17 mls/hr Q8HR IV 10/11/24 14:00 UNV Docusate Sodium 100 mg BID PO 10/12/24 10:00 10/16/24 10:28 100 MG Hydromorphone HCl 1 mg Q4HPRN PRN IV 10/12/24 12:15 10/13/24 20:38 1 MG Enteral Nutritional Formula 240 ml TIDWM PO 10/12/24 18:00 10/16/24 12:11 240 ML Ertapenem 1 gm/ Sodium Chloride 50 ml @ 100 mls/hr DAILY IV 10/14/24 10:00 10/16/24 10:28 100 MLS/HR Laboratory Results Laboratory Tests 10/13/24 06:02 10/15/24 05:06 Urinalysis Test 10/12/24 16:00 Urine Color Colorless (Yellow) Urine Clarity Turbid (Clear) H Urine pH 6.5 (5.0-9.0) Urine Specific [place] 1.015 (1.001-1.035) Urine Protein 1+ (Negative) H Urine Ketones Trace (Negative) Urine Blood 2+ /uL (Negative) H Urine Nitrite Negative (Negative) Urine Bilirubin Negative (Negative) Urine Urobilinogen Normal mg/dL (Negative) Urine Leukocyte Esterase 3+ /uL (Negative) Urine RBC 369 /hpf (0 - 4) Urine WBC 353 /hpf (0 - 5) Urine Squamous Epithelial Cells Few /hpf (<5) Urine Bacteria Few /hpf (None Seen) H Urine Glucose Normal mg/dL (Normal) Microbiology Microbiology Date/Time Source Procedure Growth Status 10/12/24 14:46 Blood Blood Culture - Preliminary NO GROWTH AFTER 72 HOURS OF INCUBATION. Resulted 10/09/24 14:10 Urine - [place] Urine Culture - Final Escherichia coli - ESBL Complete Assessment/Plan Assessment/Plan Left nephrolithiasis status post lithotripsy Hematuria Sepsis with ESBL/E coli Respiratory failure Anxiety and depression Plan: Awaiting for home health arrangement for IV Invanz 1 g daily for 14 days Plan discussed with: Patient Date of Service: Oct 16, 2024 Billing Provider: JAMES WRIGHT MD Common Visit Codes: [id number] INP/OBS CARE(HIGH) JAMES WRIGHT MD Oct 16, 2024 13:11
[2024-10-16 17:00] VITALS: BP 149/78; PULSE 83; RESP 18; TEMP 98.5; O2SAT 97
== END 2024-10-16 19:30 | disposition home or self-care (01) | DRG 853 ==
LOC: SUR 06:11 → OBSVTOIN 09:44 → OVERFLOW 09:44 → WEST WING 13:18 → OBSVTOIN 10-11 15:24 → INTOOBSV 10-11 15:24 → CENTRAL 10-12 21:37 → WEST WING 10-12 21:37 → UNDODISIN 10-16 19:30
PROVIDERS: ADMIT Internal Medicine; ATTEND Internal Medicine
PROC: 0TC78ZZ Extirpation of Matter from Left Ureter, Via Natural or Artificial Opening Endoscopic (ICD-10-PCS; 2024-10-08)
PROC: 0T778DZ Dilation of Left Ureter with Intraluminal Device, Via Natural or Artificial Opening Endoscopic (ICD-10-PCS; principal; 2024-10-08 07:54)
PROC: 05HB33Z Insertion of Infusion Device into Right Basilic Vein, Percutaneous Approach (ICD-10-PCS; 2024-10-14)
PROC: B54MZZA Ultrasonography of Right Upper Extremity Veins, Guidance (ICD-10-PCS; 2024-10-14)
DX: A41.51 Sepsis due to Escherichia coli [E. coli] (principal); J96.00 Acute respiratory failure, unspecified whether with hypoxia or hypercapnia; E87.20 Acidosis, unspecified; N39.0 Urinary tract infection, site not specified; Z16.12 Extended spectrum beta lactamase (ESBL) resistance; N17.9 Acute kidney failure, unspecified; N20.0 Calculus of kidney; E03.9 Hypothyroidism, unspecified; E78.5 Hyperlipidemia, unspecified; F32.A Depression, unspecified; E66.9 Obesity, unspecified; F41.9 Anxiety disorder, unspecified; Z68.29 Body mass index [BMI] 29.0-29.9, adult
CPT/HCPCS: 36415; 70450; 74018; 74176; 76000; 76775; 80048; 80053; 80202; 81001; 82550; 82565; 82962; 83605; 83735; 84443; 85007; 85014; 85018; 85025; 85027; 85610; 85730; 87040; 87077; 87086; 87088; 87186; 93306; 97110; 97116; 97163; 97530; G0378; J0131; J0330; J0692; J1100; J1335; J2185; J2250; J2405; J2470; J2704; J7060

== ENCOUNTER 2025-01-23 15:09 | Inpatient (IN) | payer OTHER ==
[~2025-01-23] VITALS: Ht 162.6 cm
--- NOTE | 2025-01-23 15:40 | ED.PDOC ---
HPI (NEURO) HPI Comments 54 year old female brought in by EMS presents to the ED with a chief complaint of seizures onset today (01/23/25). Per EMS, patient was at [facility] urgent care when she experienced a 2 minute seizure. Patient was initially seen at urgent care due to urinary symptoms. She states she was taking Depakote 2 years ago, was taken off by PCP and was placed on migraine medication. Last seizure, 2 years ago. Upon ED arrival, patient is A&O x4. PMHx seizures. Denies chest pain, shortness of breath, dizziness, nausea, vomiting, diarrhea. No other symptoms or modifying factors present at this time. 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 Patient is able to respond to questions, but is A&O x3 at time of evaluation. Chief Complaint: Seizure Time Seen by MD: 15:20 Reviewed Notes: Nurses Notes, Medications, Allergies Information Source: Patient, Emergency Med Personnel Mode of Arrival: EMS Severity: Moderate Headache Severity: Moderate Timing: Hours Duration: Since onset Prehospital treatment: None Seizure Location: Generalized Onset: At rest Circumstances: Spontaneous Symptoms: None Before: Normal After: Normal Mentation History of: Seizure Disorder Modifying factors: Nothing Past Medical History PAST MEDICAL HISTORY: Seizures Surgical History: Denies all surgeries [employer] WORKER History: No Pertinent [employer] WORKER History Family History Family History: Unknown Social History Smoker: Non-Smoker Alcohol: Denies ETOH Use Drugs: Denies Drug Use Lives In: Home Constitutional: denies: chills, diaphoresis, fatigue, fever, malaise, sweats, weakness, others EENTM: denies: blurred vision, double vision, ear bleeding, ear discharge, ear drainage, ear pain, ear ringing, eye pain, eye redness, hearing loss, mouth pain, mouth swelling, nasal discharge, nose bleeding, nose congestion, nose pain, photophobia, tearing, throat pain, throat swelling, voice changes, others Respiratory: denies: cough, hemoptysis, orthopnea, SOB at rest, shortness of breath, SOB with excertion, stridor, wheezing, others Cardiovascular: denies: chest pain, dizzy spells, diaphoresis, Dyspnea on exertion, edema, irregular heart beat, left arm pain, lightheadedness, palpitations, PND, syncope, others Gastrointestinal: denies: abdomen distended, abdominal pain, blood streaked bowels, constipated, diarrhea, dysphagia, difficulty swallowing, hematemesis, melena, nausea, poor appetite, poor fluid intake, rectal bleeding, rectal pain, vomiting, others Genitourinary: denies: abnormal vagina bleeding, burning, dyspareunia, dysuria, flank pain, frequency, hematuria, incontinence, pain, , vagina discharge, urgency, others Neurological: reports: seizure; denies: dizziness, fainting, headache, left sided numbness, left sided weakness, numbness, paresthesia, pre-existing deficit, right sided numbness, right sided weakness, speech problems, tingling, tremors, weakness, others Musculoskeletal: denies: back pain, gout, joint pain, joint swelling, muscle pain, muscle stiffness, neck pain, others Integumetry: denies: bruises, change in color, change in hair/nails, dryness, laceration, lesions, lumps, rash, wounds, others Allergic/Immunocompromised: denies: Difficulty Healing, Frequent Infections, Hi ves, Itching, others Hematologic/Lymphatic: denies: anemia, blood clots, easy bleeding, easy bruising, swollen glands, others Endocrine: denies: excessive hunger, excessive sweating, excessive thirst, excessive urination, flushing, intolerance to cold, intolerance to heat, unexplained weight gain, unexplained weight loss, others Psychiatric: denies: anxiety, bipolar disorder, depression, hopeless, panic disorder, schizophrenia, sleepless, suicidal, others Unable to Obtain due to: Altered Mental Status All Other Systems: Reviewed and Negative Physical Exam General Appearance: Mild Distress (Patient was in mild distress due to anxiety related to the seizure event rather than pain.), Normal HEENT: Head ( Unremarkable cranial evaluation. No signs of trauma. No skull depressions or deformities.), Normal ENT Inspection, Pharynx Normal, TMs Normal Neck: Full Range of Motion, Non-Tender, Normal, Normal Inspection Respiratory: Chest Non-Tender, Lungs Clear, No Accessory Muscle Use, No Respiratory Distress, Normal Breath Sounds Cardiovascular: No Edema, No JVD, No Murmur, No Gallop, Normal Peripheral Pulses, Regular Rate/Rhythm Breast Exam: Deferred Gastrointestinal: No Organomegaly, Non Tender, No Pulsatile Mass, Normal Bowel Sounds, Soft Genitalia: Deferred Pelvic: Deferred Rectal: Deferred Extremities: No calf tenderness, Normal capillary refill, Normal inspection, Normal range of motion, Non-tender, No pedal edema Musculoskeletal : Apperance: Normal Neurologic: Alert, Disoriented Cerebellar Function: NOT DONE Reflexes: NOT DONE Skin: Dry, Normal Color, Warm Lymphatic: No Adenopathy Was a procedure done? Was a procedure done?: No Differential Diagnosis (SZ) Seizure: Other ( Seizure, physiologic nonepileptic seizure, sepsis, electrolyte abnormality, UTI, cardiac event) X-Ray, Labs, Meds, VS Vital Signs Date Time Temp Pulse Resp B/P (MAP) Pulse Ox O2 Delivery O2 Flow Rate FiO2 01/23/25 19:33 97.9 01/23/25 19:15 68 10 97 Room Air* 0 21 01/23/25 19:15 97.9 68 10 138/64 (88) 97 97.9 01/23/25 17:00 64 16 98 Room Air* 0 21 01/23/25 17:00 97.7 78 16 112/58 (76) 98 97.7 01/23/25 16:25 64 01/23/25 15:23 98.3 84 16 146/82 (103) 96 98.3 Lab Test 01/23/25 18:50 01/23/25 17:24 01/23/25 15:49 Range/Units Urine Color Colorless Yellow Urine Clarity Turbid H Clear Urine pH 7.0 5.0-9.0 Urine Specific [place] 1.008 1.001-1.035 Urine Protein Negative Negative Urine Ketones Negative Negative Urine Blood 1+ H Negative /uL Urine Nitrite 1+ H Negative Urine Bilirubin Negative Negative Urine Urobilinogen Normal Negative mg/dL Urine Leukocyte Esterase 2+ Negative /uL Urine RBC 23 0 - 4 /hpf Urine WBC Clumps Present None Seen /hpf Urine Microscopic WBC 95 H 0-5 /HPF Urine Squamous Epithelial Cells Few <5 /hpf Urine Bacteria Few H None Seen /hpf Urine Glucose Normal Normal mg/dL Troponin I High Sensitivity 4 3 L </=34 ng/L White Blood Count 6.1 4.4-10.8 10^3/uL Red Blood Count 4.51 4.0-5.20 10^6/uL Hemoglobin 12.5 12.2-16.2 g/dL Hematocrit 38.3 36.0-46.0 % Mean Corpuscular Volume 84.9 80.0-100.0 fL Mean Corpuscular Hemoglobin 27.7 L 28.0-32.0 pg Mean Corpuscular Hemoglobin Concent 32.7 32.0-36.0 g/dL Red Cell Distribution Width 13.6 11.8-14.3 % Platelet Count 283 140-450 10^3/uL Mean Platelet Volume 8.4 6.9-10.8 fL Neutrophils (%) (Auto) 44.8 37.0-80.0 % Lymphocytes (%) (Auto) 40.2 10.0-50.0 % Monocytes (%) (Auto) 12.0 0.0-12.0 % Eosinophils (%) (Auto) 2.5 0.0-7.0 % Basophils (%) (Auto) 0.5 0.0-2.0 % Neutrophils # (Auto) 2.7 1.6-8.6 10 ^3/uL Lymphocytes # (Auto) 2.5 0.4-5.4 10 ^3/uL Monocytes # (Auto) 0.7 0-1.3 10 ^3/uL Eosinophils # (Auto) 0.1 0-0.8 10 ^3/uL Basophils # (Auto) 0 0-0.2 10 ^3/uL Nucleated Red Blood Cells 0.1 % Sodium Level 144 136-145 mmol/L Potassium Level 3.9 3.5-5.1 mmol/L Chloride Level 109 H 98-107 mmol/L Carbon Dioxide Level 27 20-31 mmol/L Anion Gap 8 5-15 Blood Urea Nitrogen 18 9-23 mg/dL Creatinine 0.90 0.550-1.02 mg/dL Glomerular Filtration Rate Calc 76 >90 mL/min BUN/Creatinine Ratio 20.0 10.0-20.0 Serum Glucose 87 74-106 mg/dL Lactic Acid Level 0.9 0.4-2.0 mmol/L Calcium Level 10.0 8.7-10.4 mg/dL Total Bilirubin 0.2 0.2-1.0 mg/dL Aspartate Amino Transferase (AST) 26 13-40 U/L Alanine Aminotransferase (ALT) 29 7-40 U/L Alkaline Phosphatase 72 46-116 U/L B-Type Natriuretic Peptide 20.54 0-100 pg/mL Total Protein 7.2 5.7-8.2 g/dL Albumin 4.4 3.2-4.8 g/dL Lipase 51 12-53 U/L Current Medications Medications (Trade) Dose Ordered Sig/Silvia Route Start Time Stop Time Status Last Admin Levetiracetam 100 ml @ 400 mls/hr ONCE ONCE IV 01/23/25 15:30 01/23/25 15:44 DC 01/23/25 16:25 Sodium Chloride 1,000 ml @ 150 mls/hr Q6H40M ONCE IV 01/23/25 15:30 01/23/25 22:09 01/23/25 16:25 Ceftriaxone Sodium 50 ml @ 100 mls/hr ONCE ONCE IV 01/23/25 19:30 01/23/25 19:59 01/23/25 19:25 Acetaminophen (Tylenol Tablet) 650 mg ONCE ONCE PO 01/23/25 19:30 01/23/25 19:31 DC 01/23/25 19:33 X-Ray, Labs, Meds, VS Comment All studies performed the ED today were evaluated by me personally. Serum desean dies were unremarkable for any systemic process. Urinalysis confirmed a urinary tract infection. CT of head was pending at time of this note. Patient will be admitted for a neuro consult and assessment of any possible medication needs. Neuro consult has not been ascertained at time of this note. Time of 1ST Reevaluation: 20:06 Reevaluation 1ST: Improved Consultation: PCP, Neurology Patient Education/Counseling: Diagnosis, Treatment, Prognosis Family Education/Counseling: Diagnosis, Treatment, No Family Present Departure 1 Departure Time of Disposition: 20:07 Impression: Primary Impression: Metabolic encephalopathy Additional Impression: Seizure Disposition: ADMITTED INPATIENT Condition: Stable Discharged With: Self Critical Care Note Critical Care Time?: No Stability Stability form required: No Heart Score Heart Score: Heart Score Response (Comments) Value History Slightly Suspicious 0 EKG Repolarization Disturb 1 Age 45-64 1 Risk Factors No known risk factors 0 Troponin Normal limit 0 Total 2 I personally scribed for CT COLBY PAC ([email or web address]) on 01/23/25 at 15:40. Nancy ctronically submitted by Tori Diaz ([email or web address]). CT COLBY PAC Jan 23, 2025 15:40
[2025-01-23 16:10] LABS: Basophils # (auto) 0 10 ^3/uL (0-0.2); Basophils % (auto) 0.5 % (0.0-2.0); Eosinophils # (auto) 0.1 10 ^3/uL (0-0.8); Eosinophils % (auto) 2.5 % (0.0-7.0); Hematocrit 38.3 % (36.0-46.0); Hemoglobin 12.5 g/dL (12.2-16.2); Lymphocytes # (auto) 2.5 10 ^3/uL (0.4-5.4); Lymphocytes % (auto) 40.2 % (10.0-50.0); Mean Corpuscular Hemoglobin 27.7 pg (28.0-32.0); Mean Corpuscular Hgb Conc. 32.7 g/dL (32.0-36.0); Mean Corpuscular Volume 84.9 fL (80.0-100.0); Monocytes # (auto) 0.7 10 ^3/uL (0-1.3); Neutrophils # (auto) 2.7 10 ^3/uL (1.6-8.6); Neutrophils % (auto) 44.8 % (37.0-80.0); Nucleated Red Blood Cells % 0.1 %; Platelet Count (auto) 283 10^3/uL (140-450); Red Blood Cells 4.51 10^6/uL (4.0-5.20); Red Cell Distribution Width 13.6 % (11.8-14.3); White Blood Cell 6.1 10^3/uL (4.4-10.8)
[2025-01-23] MEDS: SODIUM CHLORIDE 0.9% 1,000 ML IV ONE (16:25)
[2025-01-23] MEDS: levETIRAcetam 1000 mg/100ml 100 ML IV ONE (16:25)
[2025-01-23 16:26] LABS: Alanine Aminotransferase 29 U/L (7-40); Albumin 4.4 g/dL (3.2-4.8); Alkaline Phosphatase 72 U/L (46-116); Anion Gap 8 (5-15); Aspartate Aminotransferase 26 U/L (13-40); Blood Urea Nitrogen 18 mg/dL (9-23); Carbon Dioxide 27 mmol/L (20-31); Glucose 87 mg/dL (74-106); Lipase 51 U/L (12-53); Potassium 3.9 mmol/L (3.5-5.1); Sodium 144 mmol/L (136-145); Total Protein 7.2 g/dL (5.7-8.2)
[2025-01-23 16:37] LABS: Bilirubin, Total 0.2 mg/dL (0.2-1.0); Chloride 109 mmol/L (98-107)
[2025-01-23 17:00] VITALS: PULSE 64; RESP 16; O2SAT 98
[2025-01-23 19:07] LABS: Urine Bacteria FEW /hpf (None Seen); Urine Blood 1+ /uL (Negative); Urine Clarity Turbid (Clear); Urine Color Colorless (Yellow); Urine Protein, UAD Negative (Negative); Urine Specific Gravity 1.008 (1.001-1.035); Urine Squamous Epithelial Cell FEW /hpf (<5); Urine Urobilinogen Normal (Negative); Urine WBC 95 /HPF (0-5); Urine WBC Clumps PRESENT /hpf (None Seen)
[2025-01-23 19:15] VITALS: PULSE 68; RESP 10; O2SAT 97
[2025-01-23] MEDS: cefTRIAXone 1GM/50ML D5W 50 ML IV ONE (19:25)
[2025-01-23] MEDS: ACETAMINOPHEN 325 MG TAB PO ONE (19:33)
--- NOTE | 2025-01-23 20:23 | DVH ---
EXAM: CT HEAD WITHOUT CONTRAST INDICATION: Seizure/altered mental status TECHNIQUE: CT of the head without intravenous contrast. Radiation Dose : 1. Head: CT Dose: CTDI volume is 56.7 mGy. Dose-length product is 1004 mGy*cm The dose indicators for CT are the volume Computed Tomography (CT) Dose Index (CTDIvol) and the Dose Length Product (DLP), and are measured in units of mGy and mGy-cm, respectively. These indicators are not patient dose, but values generated from the CT scanner acquisition factors. The report includes radiation exposure data for exposures received during this examination. COMPARISON: CT HEAD WITHOUT CONTRAST on DOS: 10/09/24 FINDINGS: There is no evidence of acute intracranial hemorrhage, extra-axial collection, mass effect, midline s hift, herniation or hydrocephalus. The ventricles, sulci and cisterns are age appropriate. The garcia-white differentiation is intact. Patchy periventricular and subcortical white matter hypoattenuation is nonspecific but may be related to small vessel ischemic disease. The visualized paranasal sinuses and mastoid air cells are clear. The surrounding soft tissues and osseous structures are unremarkable. IMPRESSION: 1. No acute intracranial abnormality. Radiation optimization: All CT scans at this facility use at least one of these dose optimization lionel hniques: automated exposure control mA and/or kV adjustment per patient size (includes targeted exam s where dose is matched to clinical indication) or iterative reconstruction.
[2025-01-23] MEDS ORDERED: ONDANSETRON HCL 4 MG/2 ML VIAL IV PRN (20:45)
[2025-01-23] MEDS ORDERED: DOCUSATE SOD 100 MG CAP PO PRN (20:45)
[2025-01-23] MEDS: SODIUM CHLOR 0.9% PF (SALINE LOCK) 10ML VIAL/SYR IV SCH (21:31)
--- NOTE | 2025-01-23 21:53 | DVHHP2 ---
History of Present Illness Reason for Visit: Seizure disorder History of Present Illness The patient is a 54-year-old female with past medical history of seizure disorder who presented to [facility] ED for evaluation of seizures activity. Patient was at [facility] when she experienced a 2 minutes of seizures activity. Patient was initially seen at urgent care due to urinary symptoms. She states she was taking Depakote 2 years ago, was taken off by PCP and was placed on migraine medication, last seizure, 2 years ago. Patient was seen and evaluated in the ED, laboratory data shows WBC 6.1, platelets 283, sodium 144, potassium 3.9, BUN 18, creatinine 0.90, GFR 78, glucose 87, troponin 4, lipase 51. Head CT showed no acute intracranial abnormality. Patient was started on IV Keppra, please see medication orders section in the computer. On my assessment, patient denied chest pain, no headache, no dizziness, no diaphoresis, no shortness of breath, no nausea, no vomiting, no fever, no chills. Patient was admitted for further evaluation and medical management. Past Medical History Seizures Past Surgical History Denies all surgeries Family History Reviewed, noncontributory to the management of this case. Past Social History The patient lives at home, denies smoking, alcohol or illicit drugs abuse. Review of Systems Constitutional: Yes: Weakness; No: Fever, Chills, Sweats, Malaise, Other Eyes: No: Pain, Vision change, Conjunctivae inflammation, Eyelid inflammation, Other, Redness ENT: No: Ear pain, Ear discharge, Nose pain, Nose discharge, Nose congestion, Mouth pain, Mouth swelling, Throat pain, Throat swelling, Other Respiratory: No: Cough, Dry, Shortness of breath, SOB with excertion, Wheezing, Hemoptysis, Pleuritic Pain, Sputum, Wheezing, Other Cardiovascular: No: Chest Pain, Palpitations, Orthopnea, Paroxysmal Noc. Dyspnea, Edema, Lt Headedness, Other Gastrointestinal: No: Nausea, Vomiting, Abdominal Pain, Diarrhea, Constipation, Melena, Hematochezia, Other Genitourinary: No Dysuria, No Frequency, No Incontinence, No Hematuria, No Retention, No Other Musculoskeletal: No: other, neck pain, shoulder pain, arm pain, back pain, hand pain, leg pain, foot pain Skin: No: Rash, Lesions, Jaundice, Bruising, Other Neurological: Seizures; No: Weakness, Numbness, Incoordination, Change in speech, Confusion, Other Allergies: Coded Allergies: NO KNOWN ALLERGIES (Unverified , 10/06/24) Medications Current Medications Medications Dose Ordered Sig/Silvia Route Start Time Stop Time Status Last Admin Dose Admin Levetiracetam 100 ml @ 400 mls/hr BID IV 01/23/25 22:00 Atorvastatin Calcium 40 mg HS PO 01/23/25 22:00 Sertraline HCl 50 mg DAILY PO 01/24/25 10:00 Levothyroxine Sodium 25 mcg QAM@0600 PO 01/24/25 06:00 Divalproex Sodium 250 mg BID PO 01/23/25 22:00 Ceftriaxone Sodium 50 ml @ 100 mls/hr DAILY@09 IV 01/24/25 09:00 Sodium Chloride 10 ml Q8HR IV 01/23/25 22:00 Acetaminophen/ Hydrocodone Bitart 1 tab Q4HP PRN PO 01/23/25 20:45 Ondansetron HCl 4 mg Q4HP PRN IV 01/23/25 20:45 Docusate Sodium 100 mg BIDPRN PRN PO 01/23/25 20:45 Acetaminophen 650 mg Q6HP PRN PO 01/23/25 20:45 Exam Vital Signs Vital Signs Date Time Temp Pulse Resp B/P (MAP) Pulse Ox O2 Delivery O2 Flow Rate FiO2 01/23/25 21:00 98.0 64 19 115/66 (82) 98 98.0 01/23/25 19:15 Room Air* 0 21 General Appearance: Alert, Oriented X3, Cooperative, No acute distress HEENT: Atraumatic, PERRLA, EOMI, Mucous membr. moist/pink Respiratory: Clear to auscultation, Normal air movement Cardiovascular: Regular rate, Normal S1, Normal S2, No murmurs Abdominal: Normal bowel sounds, Soft, No tenderness, No hepatospenomegaly, No masses Extremities: No clubbing, No cyanosis, No edema, Normal pulses, No tenderness/swelling Skin: No rashes, No breakdown, No significant lesion Neuro: Normal speech, Normal tone, Sensation intact, Cranial nerves 3-12 NL, Reflexes 2+, Other (Generalized weakness) Psych/Mental Status: Mental status NL, Mood NL Labs/Xrays Labs Test 01/23/25 19:46 01/23/25 18:50 01/23/25 17:24 01/23/25 15:49 Range/Units POC Glucose 148 H 70-106 mg/dl Urine Color Colorless Yellow Urine Clarity Turbid H Clear Urine pH 7.0 5.0-9.0 Urine Specific [place] 1.008 1.001-1.035 Urine Protein Negative Negative Urine Ketones Negative Negative Urine Blood 1+ H Negative /uL Urine Nitrite 1+ H Negative Urine Bilirubin Negative Negative Urine Urobilinogen Normal Negative mg/dL Urine Leukocyte Esterase 2+ Negative /uL Urine RBC 23 0 - 4 /hpf Urine WBC Clumps Present None Seen /hpf Urine Microscopic WBC 95 H 0-5 /HPF Urine Squamous Epithelial Cells Few <5 /hpf Urine Bacteria Few H None Seen /hpf Urine Glucose Normal Normal mg/dL Troponin I High Sensitivity 4 </=34 ng/L Thyroid Stimulating Hormone (TSH) 2.26 0.55-4.78 uIU/mL White Blood Count 6.1 4.4-10.8 10^3/uL Red Blood Count 4.51 4.0-5.20 10^6/uL Hemoglobin 12.5 12.2-16.2 g/dL Hematocrit 38.3 36.0-46.0 % Mean Corpuscular Volume 84.9 80.0-100.0 fL Mean Corpuscular Hemoglobin 27.7 L 28.0-32.0 pg Mean Corpuscular Hemoglobin Concent 32.7 32.0-36.0 g/dL Red Cell Distribution Width 13.6 11.8-14.3 % Platelet Count 283 140-450 10^3/uL Mean Platelet Volume 8.4 6.9-10.8 fL Neutrophils (%) (Auto) 44.8 37.0-80.0 % Lymphocytes (%) (Auto) 40.2 10.0-50.0 % Monocytes (%) (Auto) 12.0 0.0-12.0 % Eosinophils (%) (Auto) 2.5 0.0-7.0 % Basophils (%) (Auto) 0.5 0.0-2.0 % Neutrophils # (Auto) 2.7 1.6-8.6 10 ^3/uL Lymphocytes # (Auto) 2.5 0.4-5.4 10 ^3/uL Monocytes # (Auto) 0.7 0-1.3 10 ^3/uL Eosinophils # (Auto) 0.1 0-0.8 10 ^3/uL Basophils # (Auto) 0 0-0.2 10 ^3/uL Nucleated Red Blood Cells 0.1 % Sodium Level 144 136-145 mmol/L Potassium Level 3.9 3.5-5.1 mmol/L Chloride Level 109 H 98-107 mmol/L Carbon Dioxide Level 27 20-31 mmol/L Anion Gap 8 5-15 Blood Urea Nitrogen 18 9-23 mg/dL Creatinine 0.90 0.550-1.02 mg/dL Glomerular Filtration Rate Calc 76 >90 mL/min BUN/Creatinine Ratio 20.0 10.0-20.0 Serum Glucose 87 74-106 mg/dL Lactic Acid Level 0.9 0.4-2.0 mmol/L Calcium Level 10.0 8.7-10.4 mg/dL Total Bilirubin 0.2 0.2-1.0 mg/dL Aspartate Amino Transferase (AST) 26 13-40 U/L Alanine Aminotransferase (ALT) 29 7-40 U/L Alkaline Phosphatase 72 46-116 U/L B-Type Natriuretic Peptide 20.54 0-100 pg/mL Total Protein 7.2 5.7-8.2 g/dL Albumin 4.4 3.2-4.8 g/dL Lipase 51 12-53 U/L PATIENT: SELVIN CALZADAT: [id number] UNIT: [id number] : 1970 LOC: ER ROOM / BED: / AGE / SEX: 54 / F ADM STATUS: REG ER SERVICE 56 ORDERING PHYSICIAN: CT COLBY PAC PROCEDURE(s): HWOCT - HEAD WITHOUT CONTRAST REASON: Seizure/altered mental status ORDER NUMBER(s): [id number], ACCESSION NUMBER(s): [id number] EXAM: CT HEAD WITHOUT CONTRAST INDICATION: Seizure/altered mental status TECHNIQUE: CT of the head without intravenous contrast. Radiation Dose: 1. Head: CT Dose: CTDI volume is 56.7 mGy. Dose-length product is 1004 mGy*cm The dose indicators for CT are the volume Computed Tomography (CT) Dose Index (CTDIvol) and the Dose Length Product (DLP), and are measured in units of mGy and mGy-cm, respectively. These indicators are not patient dose, but values generated from the CT scanner acquisition factors. The report includes radiation exposure data for exposures received during this examination. COMPARISON: CT HEAD WITHOUT CONTRAST on DOS: 10/09/24 FINDINGS: There is no evidence of acute intracranial hemorrhage, extra-axial collection, mass effect, midline shift, herniation or hydrocephalus. The ventricles, sulci and cisterns are age appropriate. The garcia-white differentiation is intact. Patchy periventricular and subcortical white matter hypoattenuation is nonspecific but may be related to small vessel ischemic disease. The visualized paranasal sinuses and mastoid air cells are clear. The surrounding soft tissues and osseous structures are unremarkable. IMPRESSION: 1. No acute intracranial abnormality. Assessment/Plan Assessment/Plan Seizure disorder Generalized weakness Plan 1. Admit to telemetry unit 2. Breathing treatment 3. Pain control management 4. Management of fluids and electrolytes 5. Consultation for Neurology 6. Diagnostic tests head CT 7. DVT prophylaxis-on SCDs 8. Repeat labs CBC, CMP in a.m. 9. Continue with current medical management 10. Treatment plan discussed with patient and RN. Patient verbalized understanding. Plan discussed with: Patient, Other (RN) My Orders Orders - LITZY PORTILLO DNP Procedure Category Date Status Time Levetiracetam 1000 PHA 01/23/25 In Process Mg/100ml (Levetiracet 22:00 Atorvastatin (Lipitor) PHA 01/23/25 In Process 22:00 Sertraline Hcl PHA 01/24/25 In Process (Zoloft) 10:00 Levothyroxine Tablet PHA 01/24/25 In Process (Synthroid Tablet) 06:[address] Tablet PHA 01/23/25 In Process (Depakote "Dr" Tabl 22:00 Urine Bacterial JOSE LUIS 01/23/25 In Process Culture 20:31 Ceftriaxone 1gm/50ml PHA 01/24/25 In Process D5w (Rocephin) 09:00 Allergies PATRICIA 01/23/25 In Process 20:31 Code Status CODE 01/23/25 Transmitted 20:31 Sodium Chloride Lock PHA 01/23/25 In Process (Saline Lock Ns) 22:00 Oxygen Per Hour RT 01/23/25 Transmitted 20:31 Hydrocodone-Acet PHA 01/23/25 In Process 5/325mg Tab ([place] 20:45 Ondansetron Hcl PHA 01/23/25 In Process (Zofran) 20:45 Docusate Sodium PHA 01/23/25 In Process Capsule (Colace 20:45 Fall Risk Precautions PATRICIA 01/23/[address] 20:31 Complete Blood Count LAB 01/24/25 Verified 04:00 Comprehensive LAB 01/24/25 Verified Metabolic Panel 04:00 Cardiac DIET 01/24/25 Transmitted Diet-2gna,Lofat,Lochol Breakfast Condition: Serious PATRICIA 01/23/25 In Process 20:31 Acetaminophen Tablet PHA 01/23/25 In Process (Tylenol Tablet) 20:45 Sequential PATRICIA 01/23/25 In Process Compression Device Admit ADMIT 01/23/25 Verified 21:51 Nitroglycerin PHA 01/23/25 Verified Sublingual (Ntrostat 22:00 Morphine Sulfate PHA 01/23/25 Verified Injection 22:00 Notify Of Changes [facility] 01/23/25 Verified From Base 21:51 Slip Filler For [facility] 01/23/25 Verified 24 Hours 21:51 Emergency Dysrhythmia PATRICIA 01/23/25 Verified Protocol 21:51 Rhythm Strips Once [facility] 01/23/25 Verified Every Shift 21:51 Oxygen By Nasal RT 01/23/25 Verified Cannula 21:51 Problem List: (1) Seizure disorder (2) Generalized weakness Date of Service: Jan 23, 2025 Billing Provider: LITZY PORTILLO DNP Common Visit Codes: [id number] INP/OBS CARE (HIGH) LITZY PORTILLO DNP Jan 23, 2025 21:53
[2025-01-23] MEDS ORDERED: NITROGLYCERIN 0.4 MG SL TAB SL PRN (22:00)
[2025-01-23] MEDS ORDERED: MORPHINE SULFATE INJ 2 MG/ml SYRG IV PRN (22:00)
[2025-01-23] MEDS: ATORVASTATIN 20 MG TAB PO SCH (22:03)
[2025-01-23] MEDS: levETIRAcetam 1000 mg/100ml 100 ML IV SCH (22:03)
[2025-01-23 23:45] VITALS: BP 128/69; PULSE 57; RESP 18; TEMP 97.6; O2SAT 95
[2025-01-24] VITALS (9 sets, daily range): BP systolic 103–115; BP diastolic 51–67; PULSE 57–71; RESP 15–19; TEMP 97.2–98.5; O2SAT 93–97
[2025-01-24] MEDS: LEVOTHYROXINE SODIUM 25 MCG TAB PO SCH (05:23)
--- NOTE | 2025-01-24 07:18 | ECG ---
[facility] Test Date: 2025-01-23 Test Time: 20:14:53 Pat Name: GEORGES CALZADA Department: EMERGENCY Room: 0202T A Gender: F [employer]placement [employer]derer: YF : 1970 Requested By: CT COLBY Order Number: [id number] Reading MD: Willie Perez Measurements Intervals [place] Rate: 61 P: 26 DC: 162 QRS: 6 QRSD: 82 T: 36 QT: 452 QTc: 456 Interpretive Statements Sinus rhythm Electronically Signed On 01-24-2025 16:12:51 PDT by Willie Perez Please click the below link to view image of tracing.
[2025-01-24 07:53] LABS: Basophils # (auto) 0 10 ^3/uL (0-0.2); Basophils % (auto) 0.3 % (0.0-2.0); Eosinophils # (auto) 0.2 10 ^3/uL (0-0.8); Hematocrit 37.3 % (36.0-46.0); Hemoglobin 12.1 g/dL (12.2-16.2); Lymphocytes # (auto) 1.8 10 ^3/uL (0.4-5.4); Lymphocytes % (auto) 32.5 % (10.0-50.0); Mean Corpuscular Hemoglobin 27.5 pg (28.0-32.0); Mean Corpuscular Hgb Conc. 32.3 g/dL (32.0-36.0); Mean Corpuscular Volume 84.9 fL (80.0-100.0); Monocytes # (auto) 0.7 10 ^3/uL (0-1.3); Monocytes % (auto) 11.9 % (0.0-12.0); Neutrophils # (auto) 2.9 10 ^3/uL (1.6-8.6); Neutrophils % (auto) 52.3 % (37.0-80.0); Nucleated Red Blood Cells % 0.1 %; Platelet Count (auto) 278 10^3/uL (140-450); Red Cell Distribution Width 13.7 % (11.8-14.3); White Blood Cell 5.5 10^3/uL (4.4-10.8)
[2025-01-24 08:25] LABS: Alanine Aminotransferase 24 U/L (7-40); Alkaline Phosphatase 60 U/L (46-116); Anion Gap 8 (5-15); Aspartate Aminotransferase 22 U/L (13-40); BUN/Creatinine Ratio 16.8 (10.0-20.0); Blood Urea Nitrogen 16 mg/dL (9-23); Calcium 9.5 mg/dL (8.7-10.4); Carbon Dioxide 25 mmol/L (20-31); Glucose 104 mg/dL (74-106); Potassium 4.2 mmol/L (3.5-5.1); Sodium 141 mmol/L (136-145); Total Protein 6.7 g/dL (5.7-8.2)
[2025-01-24 08:32] LABS: Bilirubin, Total 0.3 mg/dL (0.2-1.0); Chloride 108 mmol/L (98-107)
[2025-01-24] MEDS: cefTRIAXone 1GM/50ML D5W 50 ML IV SCH (09:25)
[2025-01-24] MEDS: SERTRALINE HCL 50 MG TAB PO SCH (09:27)
[2025-01-24] MEDS: HYDROcodone-ACET 5/325MG TAB PO PRN (09:27)
--- NOTE | 2025-01-24 17:41 | DVHPN2 ---
Reviewed: Care Plan, H&P, Labs, Medications, Previous Orders, Radiology Changes from previous H/P or p: No Changes General: Per HPI Eyes: No Pain, No Vision change, No Conjunctivae inflammation, No Eyelid inflammation, No Other, No Redness ENT: No Ear pain, No Ear discharge, No Nose pain, No Nose discharge, No Nose congestion, No Mouth pain, No Mouth swelling, No Throat pain, No Throat swelling, No Other Cardiovascular: No Chest Pain, No Palpitations, No Orthopnea, No Paroxysmal Noc. Dyspnea, No Edema, No Lt Headedness, No Other Respiratory: No Cough, No Dry, No Shortness of breath, No SOB with excertion, No Wheezing, No Hemoptysis, No Pleuritic Pain, No Sputum, No Other Gastrointestinal: No Nausea, No Vomiting, No Abdominal Pain, No Diarrhea, No Constipation, No Melena, No Hematochezia, No Other Genitourinary: No Dysuria, No Frequency, No Incontinence, No Hematuria, No Retention, No Other Musculoskeletal: No other, No neck pain, No shoulder pain, No arm pain, No back pain, No hand pain, No leg pain, No foot pain Skin: No Rash, No Lesions, No Jaundice, No Bruising, No Other Objective Vitals Vital Signs Date Time Temp Pulse Resp B/P (MAP) Pulse Ox O2 Delivery O2 Flow Rate FiO2 01/24/25 16:51 97.7 60 15 110/60 (77) 94 97.7 01/24/25 08:00 Room Air* 0 21 Intake/Output Intake and Output 01/24/25 07:00 Intake Total 700 ml Balance 700 ml Intake Oral 0 ml IV Total 700 ml # Voids 1 General Appearance: Alert, Oriented X3, Cooperative Cardiovascular: Regular rate, Normal S1, Normal S2 Abdomen: Normal bowel sounds, Soft Neuro: Normal gait Medications Current Medications Medications Dose Ordered Sig/Silvia Route Start Time Stop Time Status Last Admin Dose Admin Levetiracetam 100 ml @ 400 mls/hr BID IV 01/23/25 22:00 01/24/25 10:33 400 MLS/HR Atorvastatin Calcium 40 mg HS PO 01/23/25 22:00 01/24/25 09:27 40 MG Sertraline HCl 50 mg DAILY PO 01/24/25 10:00 01/24/25 09:27 50 MG Levothyroxine Sodium 25 mcg QAM@0600 PO 01/24/25 06:00 01/24/25 05:23 25 MCG Ceftriaxone Sodium 50 ml @ 100 mls/hr DAILY@09 IV 01/24/25 09:00 01/24/25 09:25 100 MLS/HR Sodium Chloride 10 ml Q8HR IV 01/23/25 22:00 01/24/25 14:47 10 ML Acetaminophen/ Hydrocodone Bitart 1 tab Q4HP PRN PO 01/23/25 20:45 01/24/25 15:11 1 TAB Ondansetron HCl 4 mg Q4HP PRN IV 01/23/25 20:45 Docusate Sodium 100 mg BIDPRN PRN PO 01/23/25 20:45 Acetaminophen 650 mg Q6HP PRN PO 01/23/25 20:45 Nitroglycerin 0.4 mg Q5MINP PRN SL 01/23/25 22:00 Morphine Sulfate 2 mg Q30M PRN IV 01/23/25 22:00 Laboratory Results Laboratory Tests 01/24/25 07:30 Chemistry Test 01/24/25 07:30 Albumin 4.0 g/dL (3.2-4.8) Calcium Level 9.5 mg/dL (8.7-10.4) Total Protein 6.7 g/dL (5.7-8.2) LFT Test 01/24/25 07:30 Alanine Aminotransferase (ALT) 24 U/L (7-40) Alkaline Phosphatase 60 U/L (46-116) Aspartate Amino Transferase (AST) 22 U/L (13-40) Total Bilirubin 0.3 mg/dL (0.2-1.0) Urinalysis Test 01/23/25 18:50 Urine Color Colorless (Yellow) Urine Clarity Turbid (Clear) H Urine pH 7.0 (5.0-9.0) Urine Specific [place] 1.008 (1.001-1.035) Urine Protein Negative (Negative) Urine Ketones Negative (Negative) Urine Blood 1+ /uL (Negative) H Urine Nitrite 1+ (Negative) H Urine Bilirubin Negative (Negative) Urine Urobilinogen Normal mg/dL (Negative) Urine Leukocyte Esterase 2+ /uL (Negative) Urine RBC 23 /hpf (0 - 4) Urine WBC Clumps Present /hpf (None Seen) Urine Microscopic WBC 95 /HPF (0-5) H Urine Squamous Epithelial Cells Few /hpf (<5) Urine Bacteria Few /hpf (None Seen) H Urine Glucose Normal mg/dL (Normal) Microbiology Microbiology Date/Time Source Procedure Growth Status 01/23/25 18:50 Voided Urine Urine Culture - Preliminary Resulted Labs and/or images reviewed: Labs reviewed by me, Image(s) reviewed by me Assessment/Plan Assessment/Plan The patient is a 54-year-old female with past medical history of seizure disorder who presented to [facility] ED for evaluation of seizures activity. Patient was at [facility] when she experienced a 2 minutes of seizures activity. Patient was initially seen at urgent care due to urinary symptoms. She states she was taking Depakote 2 years ago, was taken off by PCP and was placed on migraine medication, last seizure, 2 years ago. Patient was seen and evaluated in the ED, laboratory data shows WBC 6.1, platelets 283, sodium 144, potassium 3.9, BUN 18, creatinine 0.90, GFR 78, glucose 87, troponin 4, lipase 51. Head CT showed no acute intracranial abnormality. Patient was started on IV Keppra, please see medication orders section in the computer. On my assessment, patient denied chest pain, no headache, no dizziness, no diaphoresis, no shortness of breath, no nausea, no vomiting, no fever, no chills. Patient was admitted for further evaluation and medical management. Seizure disorder Generalized weakness UTI headache 01/24/25: pt complains of headache. Neurology consulted and pending. Pt is not taking anti-seizure at home. Last time she took them was 2 years ago. During the time she was at the office visit, she appeared to be have seizure but not confirmed remains on IV Abx for UTI tx. Urine Cx pending Plan discussed with: Patient Date of Service: Jan 24, 2025 Billing Provider: CATE ARNDT DO Common Visit Codes: [id number] INP/OBS CARE(HIGH) CATE ARNDT DO Jan 24, 2025 17:41
[2025-01-25 01:00] VITALS: BP 108/48; PULSE 51; RESP 16; TEMP 97.9; O2SAT 95
[2025-01-25 05:00] VITALS: BP 100/46; PULSE 59; RESP 16; TEMP 97.9; O2SAT 95
[2025-01-25 08:00] VITALS: PULSE 63; PULSE 68; RESP 16; O2SAT 98
[2025-01-25] MEDS: ACETAMINOPHEN 325 MG TAB PO PRN (08:20)
[2025-01-25 08:49] VITALS: BP 131/68; PULSE 60; RESP 17; TEMP 98.2; O2SAT 97
--- NOTE | 2025-01-25 10:16 | DVHINCON2 ---
Date of service: Jan 25, [address] Cervantes Reason for Consultation Altered mental status/seizure History of Present Illness Mr. Bernal is a 54 years old right-handed female with a history of anxiety, depression, she came to the [facility] on 01/23/2025 with a chief company of seizure activity. At this time, she is alert, fully oriented, she provided the following history without bilingual staff's assistance The patient was not remember, but according the ER note, the patient was had a 2 minutes seizure in the [facility]. The patient was relates she only remembers being in the ambulance and dropped to the [facility] ER. She was said to have shaking all over body, and urinary incontinence. The last time she had similar activity was in summer of 2022 In 2022, the patient was developed recurrent episodic event in that she was shaking all over body without biting, but with urinary incontinence, this happened every day or every three days, she does not remember any of the seizur es, the patient was was prescribed seizure medication but she does not remember its name. In 2022, the patient was admitted to the [facility] where she had while on the head and video camera from her for five days, and when she was discharge, she was said to have stress really seizure, and the missing her cell phone said she had PNES, but [facility] did not change her medical treatment For five years, the patient was has periodic year, 10/10 pulsating right-sided headache with photophobia, sonophobia, this happens once or twice weekly, and lasts for 1-2 days each time, she was sees lights before the headache attack, Depakote, her current treatment, does not touch the headache According to our record, the patient sees Dr. Reynoso, a local neurologist, and her only seizure medication was Depakote, likely she takes 250 mg b.i.d. Urine culture, 01/23/25: Mixed doreen, more than three colonies Urinalysis, 01/23/2025: WBC: 95, urine clumps: Present, urine leukocyte esterase: 2+, urine nitrate: Positive CBC, 01/23/2025: Unremarkable CMP, 01/24/2025: Unremarkable TSH, 01/23/2025: 2.26 CT head, 01/23/2025: No acute intracranial abnormality. Past Medical History Seizures, anxiety, depression, kidney stone Past Surgical History Hysterectomy, kidney stone removal, cholecystectomy Family History: Cerebrovascular accident (CVA) G8 FATHER Diabetes mellitus G8 MOTHER G8 FATHER Hypertension G8 MOTHER G8 FATHER Ischemic heart disease G8 FATHER Family History Depression, anxiety, migraine headache, hypertension, diabetes, heart disease, stroke, one daughter has seizure with unknown etiology, and is on medical treatment. no alcohol problem Social History She has no history of smoking, alcohol or drug abuse Allergies: Coded Allergies: NO KNOWN ALLERGIES (Unverified , 10/06/24) Home Meds Reported Medications Atorvastatin Calcium (Lipitor) 40 Mg Tab, 40 MG PO DAILY, TAB 10/06/24 Cholecalciferol (D3-50) 50,000 Unit Cap, 57728 UNIT PO Q7D, CAP 10/06/24 Sertraline Hcl (Sertraline Hcl) 50 Mg Tab, 50 MG PO DAILY, TAB 10/06/24 Divalproex Sodium (Depakote) 250 Mg Tab, 250 MG PO BID, TAB 10/06/24 Levothyroxine Sodium (Levothyroxine Sodium) 25 Mcg Cap, 25 MCG PO DAILY, CAP 10/06/24 Review of Systems As above, the other systems are negative Vital Signs Vital Signs Date Time Temp Pulse Resp B/P (MAP) Pulse Ox O2 Delivery O2 Flow Rate FiO2 01/25/25 08:49 98.2 60 17 131/68 (89) 97 98.2 01/24/25 20:00 Room Air* 0 21 Physical Exam GENERAL EXAM: General: the patient is well developed and nourished. No acute distress. HEENT: Normocephalic, neck is supple, no carotid bruits. No mass. RESPIRATORY: Normal respiratory effort with symmetrical lung expansion. Lungs clear to auscultation. CARDIOVASCULAR: Regular rate and rhythm with no murmurs. S1, S2. ABDOMEN: Soft, nontender, normal bowel sound NEUROLOGICAL: MENTAL STATUS: Awake and alert. Oriented to person, place, time and general circumstances. Able to give personal history SPEECH, LANGUAGE, HIGHER CORTICAL FUNCTION: no aphasia or dysathria. CRANIAL NERVES: #2: Intact visual obrien to confrontation. The optic discs were sharp #3,4,6: Pupils are equal, round and reactive. EOMs full and conjugate. No nystagmus. #5: Facial sensation intact in all three divisions bilaterally. Mandibular strength intact. #7: Facial muscles symmetrical and strength intact. #8: Hearing grossly normal to voice. #9,10: Uvula and soft palate rise in the midline. Swallow and voice are normal. #11: Trapezius and sternomastoid strength intact bilaterally. #12: Tongue midline. No fasciculations or atrophy. SENSATION: Sensation to touch and pinprick is normal. MOTOR: Normal tone in the upper and lower extremity. Normal muscle bulk. No fasciculations. No abnormal movements or posturing. Muscle strength of the major groups in the upper extremities is 5/5. Muscle strength of the major groups in the lower extremities is 5/5. REFLEXES: Deep tendon reflexes are symmetrical. No pathological reflexes. CEREBELLAR/COORDINATION: Finger to nose and heel to stein are normal bilaterally. GAIT/STATION: deferred. Labs/Diagnostic Data Labs Test 01/24/25 07:30 01/23/25 19:46 01/23/25 18:50 01/23/25 17:24 Range/Units White Blood Count 5.5 4.4-10.8 10^3/uL Red Blood Count 4.40 4.0-5.20 10^6/uL Hemoglobin 12.1 L 12.2-16.2 g/dL Hematocrit 37.3 36.0-46.0 % Mean Corpuscular Volume 84.9 80.0-100.0 fL Mean Corpuscular Hemoglobin 27.5 L 28.0-32.0 pg Mean Corpuscular Hemoglobin Concent 32.3 32.0-36.0 g/dL Red Cell Distribution Width 13.7 11.8-14.3 % Platelet Count 278 140-450 10^3/uL Mean Platelet Volume 8.4 6.9-10.8 fL Neutrophils (%) (Auto) 52.3 37.0-80.0 % Lymphocytes (%) (Auto) 32.5 10.0-50.0 % Monocytes (%) (Auto) 11.9 0.0-12.0 % Eosinophils (%) (Auto) 3.0 0.0-7.0 % Basophils (%) (Auto) 0.3 0.0-2.0 % Neutrophils # (Auto) 2.9 1.6-8.6 10 ^3/uL Lymphocytes # (Auto) 1.8 0.4-5.4 10 ^3/uL Monocytes # (Auto) 0.7 0-1.3 10 ^3/uL Eosinophils # (Auto) 0.2 0-0.8 10 ^3/uL Basophils # (Auto) 0 0-0.2 10 ^3/uL Nucleated Red Blood Cells 0.1 % Sodium Level 141 136-145 mmol/L Potassium Level 4.2 3.5-5.1 mmol/L Chloride Level 108 H 98-107 mmol/L Carbon Dioxide Level 25 20-31 mmol/L Anion Gap 8 5-15 Blood Urea Nitrogen 16 9-23 mg/dL Creatinine 0.95 0.550-1.02 mg/dL Glomerular Filtration Rate Calc 72 >90 mL/min BUN/Creatinine Ratio 16.8 10.0-20.0 Serum Glucose 104 74-106 mg/dL Calcium Level 9.5 8.7-10.4 mg/dL Total Bilirubin 0.3 0.2-1.0 mg/dL Aspartate Amino Transferase (AST) 22 13-40 U/L Alanine Aminotransferase (ALT) 24 7-40 U/L Alkaline Phosphatase 60 46-116 U/L Total Protein 6.7 5.7-8.2 g/dL Albumin 4.0 3.2-4.8 g/dL POC Glucose 148 H 70-106 mg/dl Urine Color Colorless Yellow Urine Clarity Turbid H Clear Urine pH 7.0 5.0-9.0 Urine Specific [place] 1.008 1.001-1.035 Urine Protein Negative Negative Urine Ketones Negative Negative Urine Blood 1+ H Negative /uL Urine Nitrite 1+ H Negative Urine Bilirubin Negative Negative Urine Urobilinogen Normal Negative mg/dL Urine Leukocyte Esterase 2+ Negative /uL Urine RBC 23 0 - 4 /hpf Urine WBC Clumps Present None Seen /hpf Urine Microscopic WBC 95 H 0-5 /HPF Urine Squamous Epithelial Cells Few <5 /hpf Urine Bacteria Few H None Seen /hpf Urine Glucose Normal Normal mg/dL Troponin I High Sensitivity 4 </=34 ng/L Thyroid Stimulating Hormone (TSH) 2.26 0.55-4.78 uIU/mL Test 01/23/25 15:49 Range/Units Lactic Acid Level 0.9 0.4-2.0 mmol/L B-Type Natriuretic Peptide 20.54 0-100 pg/mL Lipase 51 12-53 U/L Microbiology Date/Time Source Procedure Growth Status 01/24/25 00:05 Nose MRSA Screen - Final Complete 01/23/25 18:50 Voided Urine Urine Culture - Preliminary Resulted Assessment Grand mal seizure Psychogenic nonepileptic seizure ? Epileptic seizure Migraine headache with aura Urinary tract infection Plan/Recommendation Monitoring Supportive treatment Telemetry EEG IV antibiotics Ativan for seizure breakthrough Depakote 500 b.i.d. She has been advised not to drive until she cleared by her doctor DMV report in the chart Follow up with her doctors, including neurologist RANDI on discharge Progress: Poor This medical document was created using an electronic medical record system with [employer] dictation system. Although this document has been carefully reviewed, there may still be some phonetic and typographical errors. These areas are purely typographical due to imperfections of the software programs, and do not reflect any compromise in the patient's medical care. Plan discussed with: Patient, Other ANUEL EVANS MD Jan 25, 2025 10:16
[2025-01-25] MEDS ORDERED: LORazepam 2MG/ML-1ML VIAL IV PRN (11:00)
[2025-01-25] MEDS ORDERED: CEPH250C PO (11:52)
--- NOTE | 2025-01-25 11:56 | DVHDS2 ---
Discharge Summary Date of Admission Jan 23, 2025 at 21:51 Date of Discharge: Jan 25, 2025 Labs/Diagnostic Data: Laboratory Results Test 01/24/25 07:30 01/23/25 19:46 01/23/25 18:50 01/23/25 17:24 White Blood Count 5.5 10^3/uL (4.4-10.8) Red Blood Count 4.40 10^6/uL (4.0-5.20) Hemoglobin 12.1 g/dL (12.2-16.2) Hematocrit 37.3 % (36.0-46.0) Mean Corpuscular Volume 84.9 fL (80.0-100.0) Mean Corpuscular Hemoglobin 27.5 pg (28.0-32.0) Mean Corpuscular Hemoglobin Concent 32.3 g/dL (32.0-36.0) Red Cell Distribution Width 13.7 % (11.8-14.3) Platelet Count 278 10^3/uL (140-450) Mean Platelet Volume 8.4 fL (6.9-10.8) Neutrophils (%) (Auto) 52.3 % (37.0-80.0) Lymphocytes (%) (Auto) 32.5 % (10.0-50.0) Monocytes (%) (Auto) 11.9 % (0.0-12.0) Eosinophils (%) (Auto) 3.0 % (0.0-7.0) Basophils (%) (Auto) 0.3 % (0.0-2.0) Neutrophils # (Auto) 2.9 10 ^3/uL (1.6-8.6) Lymphocytes # (Auto) 1.8 10 ^3/uL (0.4-5.4) Monocytes # (Auto) 0.7 10 ^3/uL (0-1.3) Eosinophils # (Auto) 0.2 10 ^3/uL (0-0.8) Basophils # (Auto) 0 10 ^3/uL (0-0.2) Nucleated Red Blood Cells 0.1 % Sodium Level 141 mmol/L (136-145) Potassium Level 4.2 mmol/L (3.5-5.1) Chloride Level 108 mmol/L (98-107) Carbon Dioxide Level 25 mmol/L (20-31) Anion Gap 8 (5-15) Blood Urea Nitrogen 16 mg/dL (9-23) Creatinine 0.95 mg/dL (0.550-1.02) Glomerular Filtration Rate Calc 72 mL/min (>90) BUN/Creatinine Ratio 16.8 (10.0-20.0) Serum Glucose 104 mg/dL (74-106) Calcium Level 9.5 mg/dL (8.7-10.4) Total Bilirubin 0.3 mg/dL (0.2-1.0) Aspartate Amino Transferase (AST) 22 U/L (13-40) Alanine Aminotransferase (ALT) 24 U/L (7-40) Alkaline Phosphatase 60 U/L (46-116) Total Protein 6.7 g/dL (5.7-8.2) Albumin 4.0 g/dL (3.2-4.8) POC Glucose 148 mg/dl (70-106) Urine Color Colorless (Yellow) Urine Clarity Turbid (Clear) Urine pH 7.0 (5.0-9.0) Urine Specific [place] 1.008 (1.001-1.035) Urine Protein Negative (Negative) Urine Ketones Negative (Negative) Urine Blood 1+ /uL (Negative) Urine Nitrite 1+ (Negative) Urine Bilirubin Negative (Negative) Urine Urobilinogen Normal mg/dL (Negative) Urine Leukocyte Esterase 2+ /uL (Negative) Urine RBC 23 /hpf (0 - 4) Urine WBC Clumps Present /hpf (None Seen) Urine Microscopic WBC 95 /HPF (0-5) Urine Squamous Epithelial Cells Few /hpf (<5) Urine Bacteria Few /hpf (None Seen) Urine Glucose Normal mg/dL (Normal) Troponin I High Sensitivity 4 ng/L (</=34) Thyroid Stimulating Hormone (TSH) 2.26 uIU/mL (0.55-4.78) Test 01/23/25 15:49 Lactic Acid Level 0.9 mmol/L (0.4-2.0) B-Type Natriuretic Peptide 20.54 pg/mL (0-100) Lipase 51 U/L (12-53) Other Laboratory Tests 01/24/25 07:30 Discharge Disposition: Home Discharge Instruct/Medications Diet: Cardiac 2g Na,low cholest Activity: No Restrictions, As Tolerated Discharge Statement: "Patient was advised to return to the ER or call 911 if any headaches, dizziness, shortness of breath, chest pain, abdominal pain, bleeding, fevers, or worsening of medical condition. Patient was counseled about treatment plan, medications, possible side effects, patientverbalized understanding. All questions were answered to the best of my ability. This discharge took greater then 30 minutes in planning, reviewing documentation, counseling the patient, and discussing with other team members." ASSESSMENT ASSESSMENT Assessment Date of Service: Jan 25, 2025 Billing Provider: CATE ARNDT DO Common Visit Codes: 50148-NEG/OBS DISCH DAY >30min CATE ARNDT DO Jan 25, 2025 11:56
[2025-01-25 12:59] VITALS: BP 124/78; PULSE 77; RESP 18; TEMP 98.7; O2SAT 98
[2025-01-25 13:00] VITALS: BP 125/65; PULSE 64; RESP 17; TEMP 98.1; O2SAT 93
--- NOTE | 2025-01-26 01:01 | DVHEEG2 ---
Neurology EEG Procedural Note Procedural Note EXAM DATE: 01/25/2025 REFERRING DOCTOR: Dr. Evans TECHNIQUE: Eighteen channels of EEG, 2 channels of EOG, and 1 channel of EKG were recorded using the International 10/20 system. CLINICAL DATA: The patient was referred for an EEG evaluation for the evidence of seizure disorder. MEDICATIONS: See the chart BACKGROUND ACTIVITY: While the patient was awake, the background activity consisted of well regulated 9-10 Hz rhythmic waveforms, symmetrically distributed over both posterior quadrants and was reactive to eye opening. ACTIVATION: Hyperventilation: Not done Photic Stimulation: No photic convulsive response Sleep: Not seen IMPRESSION: This is a normal EEG. No focal, lateralized, or epileptiform features are noted. If clinically indicated to rule out a seizure disorder, recommend repeat EEG with sleep deprivation. The EKG channel showed a regular heart rate of 66 per minute [place] [address] ANUEL EVANS MD Jan 26, 2025 01:01
== END 2025-01-25 14:30 | disposition home or self-care (01) | DRG 101 ==
LOC: ER 15:09 → EDBD 15:09 → OVERFLOW 21:51 → TELE-CENTR 23:45
PROVIDERS: ADMIT Internal Medicine; ATTEND Internal Medicine
DX: G40.409 Other generalized epilepsy and epileptic syndromes, not intractable, without status epilepticus (principal); N39.0 Urinary tract infection, site not specified; F32.A Depression, unspecified; F41.9 Anxiety disorder, unspecified; G43.109 Migraine with aura, not intractable, without status migrainosus; R32 Unspecified urinary incontinence; Z90.49 Acquired absence of other specified parts of digestive tract; Z81.8 Family history of other mental and behavioral disorders; Z82.3 Family history of stroke; Z82.49 Family history of ischemic heart disease and other diseases of the circulatory system; Z83.3 Family history of diabetes mellitus; Z87.442 Personal history of urinary calculi; Z90.710 Acquired absence of both cervix and uterus
CPT/HCPCS: 36415; 70450; 80053; 81001; 82962; 83605; 83690; 83880; 84443; 84484; 85025; 87081; 87086; 93005; 95819; 96365; G0378

== ENCOUNTER 2025-09-08 12:09 | Inpatient (IN) | payer OTHER ==
[~2025-09-08] VITALS: Ht 165.1 cm; Wt 85.0 kg
[~2025-09-08 12:09] MED LIST changes: +CEPH250C PO
--- NOTE | 2025-09-08 13:15 | ED.PDOC ---
History of Present Illness HPI Comments 55F presents to the ER in a wheelchair being pushed by spouse and with the c/c of chronic kidney stones/UTI, Pre-DM: SHx of Cholecystectomy, Hysterectomy, Nephrostomy, Lithotripsy and the c/c of bilateral flank pain. Pt who is tamazight speaking originally went to see her PCP and was sent to the ER due from having a possible Sepsis nephritis and kidney stones. Spouse states on the pt having had flank pain every year. Pt currently has bilateral flank pain which is a 7/10 on the pain scale associated w/ chills and N/. Pt notes on also having bilateral LE pain associated w/ weakness since Saturday of 09/06/25. Denies any other symptoms at this time. Denies fever, /V/D, SOB, CP. Denies any other associated symptom's, modifiers, or recent injuries or sick contact at this time. Chief Complaint: Flank Pain Time Seen by MD: 13:10 Reviewed Notes: Nurses Notes, Medications, Allergies Allergies: Coded Allergies: NO KNOWN ALLERGIES (Unverified , 10/06/24) Home Meds Active Scripts Cephalexin (KEFLEX CAPSULE) 250 Mg Cp, 2 CAP PO BID for 5 Days, #20 CAP Prov:ARNDTCATE Thurston T DO 01/25/25 Reported Medications Atorvastatin Calcium (Lipitor) 40 Mg Tab, 40 MG PO DAILY, TAB 10/06/24 Cholecalciferol (D3-50) 50,000 Unit Cap, 30416 UNIT PO Q7D, CAP 10/06/24 Sertraline Hcl (Sertraline Hcl) 50 Mg Tab, 50 MG PO DAILY, TAB 10/06/24 Divalproex Sodium (Depakote) 250 Mg Tab, 250 MG PO BID, TAB 10/06/24 Levothyroxine Sodium (Levothyroxine Sodium) 25 Mcg Cap, 25 MCG PO DAILY, CAP 10/06/24 Information Source: Patient, Spouse Mode of Arrival: Wheelchair Severity: Moderate Timing: Came on: Suddenly Duration: Since onset Prehospital treatment: None Past Medical History PAST MEDICAL HISTORY: Kidney Stones (Chronic), Seizures, UTI'S Past Medical History (Other): Pre-DM Surgical History: Cholecystectomy, Hysterectomy Surgical History (Other): Nephrostomy, Lithotripsy COMMERCIAL [employer] PILOT History: No Pertinent COMMER[employer] PILOT History Family History Family History: Reviewed,noncontributory to illness, Unknown Social History Smoker: Non-Smoker Alcohol: Denies ETOH Use Drugs: Denies Drug Use Lives In: Home Constitutional: reports: chills, weakness; denies: diaphoresis, fatigue, fever, malaise, sweats, others EENTM: denies: blurred vision, double vision, ear bleeding, ear discharge, ear drainage, ear pain, ear ringing, eye pain, eye redness, hearing loss, mouth pain, mouth swelling, nasal discharge, nose bleeding, nose congestion, nose pain, photophobia, tearing, throat pain, throat swelling, voice changes, others Respiratory: denies: cough, hemoptysis, orthopnea, SOB at rest, shortness of breath, SOB with excertion, stridor, wheezing, others Cardiovascular: denies: chest pain, dizzy spells, diaphoresis, Dyspnea on exertion, edema, irregular heart beat, left arm pain, lightheadedness, palpitations, PND, syncope, others Gastrointestinal: reports: nausea; denies: abdomen distended, abdominal pain, blood streaked bowels, constipated, diarrhea, dysphagia, difficulty swallowing, hematemesis, melena, poor appetite, poor fluid intake, rectal bleeding, rectal pain, vomiting, others Genitourinary: reports: flank pain; denies: abnormal vagina bleeding, burning, dyspareunia, dysuria, frequency, hematuria, incontinence, pain, , vagina discharge, urgency, others Neurological: denies: dizziness, fainting, headache, left sided numbness, left sided weakness, numbness, paresthesia, pre-existing deficit, right sided numbness, right sided weakness, seizure, speech problems, tingling, tremors, weakness, others Musculoskeletal: denies: back pain, gout, joint pain, joint swelling, muscle pain, muscle stiffness, neck pain, others Integumetry: denies: bruises, change in color, change in hair/nails, dryness, laceration, lesions, lumps, rash, wounds, others Allergic/Immunocompromised: denies: Difficulty Healing, Frequent Infections, Hives, Itching, others Hematologic/Lymphatic: denies: anemia, blood clots, easy bleeding, easy bruising, swollen glands, others Endocrine: denies: excessive hunger, excessive sweating, excessive thirst, excessive urination, flushing, intolerance to cold, intolerance to heat, une xplained weight gain, unexplained weight loss, others Psychiatric: denies: anxiety, bipolar disorder, depression, hopeless, panic disorder, schizophrenia, sleepless, suicidal, others All Other Systems: Reviewed and Negative Physical Exam General Appearance: Moderate Distress HEENT: Normal ENT Inspection, Pharynx Normal, TMs Normal Neck: Full Range of Motion, Non-Tender, Normal, Normal Inspection Respiratory: Chest Non-Tender, Lungs Clear, No Accessory Muscle Use, No Respiratory Distress, Normal Breath Sounds Cardiovascular: No Edema, No JVD, No Murmur, No Gallop, Normal Peripheral Pulses, Regular Rate/Rhythm Breast Exam: Deferred Gastrointestinal: No Organomegaly, Non Tender, No Pulsatile Mass, Normal Bowel Sounds, Soft Genitalia: Deferred Pelvic: Deferred Rectal: Deferred Extremities: No calf tenderness, Normal capillary refill, No pedal edema Musculoskeletal : Apperance: Normal Neurologic: Alert, solder sprayer II-XII nml as Tested, Motor Weakness, Normal Affect, Normal Mood, No Sensory Deficits Cerebellar Function: Normal Reflexes: Normal Skin: Dry, Normal Color, Warm Lymphatic: No Adenopathy Was a procedure done? Was a procedure done?: No Differential Dx Considerations may include: Generalized weakness, electrolyte imbalance, UTI, renal stones X-Ray, Labs, Meds, VS Vital Signs Date Time Temp Pulse Resp B/P (MAP) Pulse Ox O2 Delivery O2 Flow Rate FiO2 09/08/25 14:09 64 16 137/82 09/08/25 14:08 97.6 67 16 112/63 (79) 97 97.6 09/08/25 12:21 97.5 70 15 105/64 95 97.5 Lab Test 09/08/25 13:09 Range/Units White Blood Count 6.9 4.4-10.8 10^3/uL Red Blood Count 4.89 4.0-5.20 10^6/uL Hemoglobin 13.7 12.2-16.2 g/dL Hematocrit 39.9 36.0-46.0 % Mean Corpuscular Volume 81.5 80.0-100.0 fL Mean Corpuscular Hemoglobin 28.1 28.0-32.0 pg Mean Corpuscular Hemoglobin Concent 34.4 32.0-36.0 g/dL Red Cell Distribution Width 14.7 H 11.8-14.3 % Platelet Count 289 140-450 10^3/uL Mean Platelet Volume 8.7 6.9-10.8 fL Neutrophils (%) (Auto) 48.7 37.0-80.0 % Lymphocytes (%) (Auto) 42.5 10.0-50.0 % Monocytes (%) (Auto) 7.3 0.0-12.0 % Eosinophils (%) (Auto) 1.1 0.0-7.0 % Basophils (%) (Auto) 0.4 0.0-2.0 % Neutrophils # (Auto) 3.4 1.6-8.6 10 ^3/uL Lymphocytes # (Auto) 3.0 0.4-5.4 10 ^3/uL Monocytes # (Auto) 0.5 0-1.3 10 ^3/uL Eosinophils # (Auto) 0.1 0-0.8 10 ^3/uL Basophils # (Auto) 0 0-0.2 10 ^3/uL Nucleated Red Blood Cells 0.0 % Sodium Level 142 136-145 mmol/L Potassium Level 2.4 *L 3.5-5.1 mmol/L Chloride Level 99 98-107 mmol/L Carbon Dioxide Level 31 20-31 mmol/L Anion Gap 12 5-15 Blood Urea Nitrogen 15 9-23 mg/dL Creatinine 1.05 H 0.550-1.02 mg/dL Glomerular Filtration Rate Calc 63 >90 mL/min BUN/Creatinine Ratio 14.3 10.0-20.0 Serum Glucose 136 H 74-106 mg/dL Lactic Acid Level 1.1 0.4-2.0 mmol/L Calcium Level 9.8 8.7-10.4 mg/dL Current Medications Medications (Trade) Dose Ordered Sig/Silvia Route Start Time Stop Time Status Last Admin Ondansetron HCl (Zofran) 4 mg ONCE ONCE IV 09/08/25 12:45 09/08/25 12:46 DC 09/08/25 14:08 Sodium Chloride 1,000 ml @ 1,000 mls/hr Q1H ONCE IVB 09/08/25 12:45 09/08/25 13:44 DC 09/08/25 14:08 Morphine Sulfate 4 mg ONCE ONCE IV 09/08/25 12:45 09/08/25 12:46 DC 09/08/25 14:09 CAT scan of the abdomen and pelvis shows: IMPRESSION: 1. No hydronephrosis. 2. Multiple bilateral nonobstructive renal caliceal stones measuring up to 3-4 mm. 3. Diffuse hepatic steatosis. Thinning of bilateral kidneys compatible with underlying medical renal disease. The patient was given a 1 L bolus of normal saline. The patient was given morphine 4 mg IV push for the pain The patient was given Zofran 4 mg IV push for the nausea The patient's chemistry panel shows hypokalemia at 2.4 The creatinine is 1.05 The patient's CBC is within normal limits. At this time, the patient is being admitted to the hospitalist. The patient is being given potassium 20 mEq IV push as well as 40 mEq p.o. The patient is being admitted at this time. Images Reviewed?: Images reviewed and evaluated by me Time of 1ST Reevaluation: 13:40 Reevaluation 1ST: Unchanged Patient Education/Counseling: Diagnosis, Treatment, Prognosis Family Education/Counseling: Diagnosis, Treatment, Prognosis SEPSIS Sepsis Screen Date sepsis recognized/suspect: Sep 08, 2025 Time Sepsis recognized/suspect: 4 Recent Procedure: No On Antibiotic Therapy: No Respiratory Rate >20: No Heart Rate >90: No Temp<36 C (96.8 F) or >38.3 C: No SBP <90 or MAP <65 mmHG: No New Acute Mental Status Change: No Is the patient on CPAP, BIPAP,: No Physician Orders Urinalysis (09/08/25 12:43) Ct Ab Pel Wo Con-No Oral Or Iv (09/08/25 12:43) Heplock Iv (09/08/25 12:43) Blood Culture (09/08/25 12:43) Potassium Chl 20meq/100ml (09/08/25 14:30) Potassium Er Tablet (Klor-Con Tablet) (09/08/25 14:30) Vital Signs Date Time Temp Pulse Resp B/P (MAP) Pulse Ox O2 Delivery O2 Flow Rate FiO2 09/08/25 14:09 64 16 137/82 09/08/25 14:08 97.6 67 16 112/63 (79) 97 97.6 09/08/25 12:21 97.5 70 15 105/64 95 97.5 Laboratory Tests Test 09/08/25 13:09 Lactic Acid Level 1.1 mmol/L (0.4-2.0) White Blood Count 6.9 10^3/uL (4.4-10.8) Medications Medications Dose Ordered Sig/Silvia Route Start Time Stop Time Status Last Admin Dose Admin Morphine Sulfate 4 mg ONCE ONCE IV 09/08/25 12:45 09/08/25 12:46 DC 09/08/25 14:09 Ondansetron HCl 4 mg ONCE ONCE IV 09/08/25 12:45 09/08/25 12:46 DC 09/08/25 14:08 Sodium Chloride 1,000 ml @ 1,000 mls/hr Q1H ONCE IVB 09/08/25 12:45 09/08/25 13:44 DC 09/08/25 14:08 Departure 1 Departure Time of Disposition: 14:20 Impression: Primary Impression: Generalized weakness Additional Impressions: Nephrolithiasis Hypokalemia Disposition: ADMITTED INPATIENT Admit to: [facility] Condition: Fair Critical Care Note Critical Care Time?: No Stability Stability form required: Yes Unstable for transfer: ED Physician Assesment (Clinical assesment) Heart Score Heart Score: Heart Score Response (Comments) Value History N/A 0 EKG N/A 0 Age N/A 0 Risk Factors N/A 0 Troponin N/A 0 Total 0 I personally scribed for LILA SANCHEZ MD ([email or web address]) on 09/08/25 at 13:15. Electronically submitted by Sohan Worrell ([email or web address]). LILA SANCHEZ MD Sep 08, 2025 13:15
[2025-09-08 13:43] LABS: Chloride 99 mmol/L (98-107); Sodium 142 mmol/L (136-145)
[2025-09-08 13:44] LABS: Anion Gap 12 (5-15)
[2025-09-08 13:45] LABS: Calcium 9.8 mg/dL (8.7-10.4)
[2025-09-08 13:49] LABS: BUN/Creatinine Ratio 14.3 (10.0-20.0); Blood Urea Nitrogen 15 mg/dL (9-23)
[2025-09-08 13:50] LABS: Hematocrit 39.9 % (36.0-46.0); Hemoglobin 13.7 g/dL (12.2-16.2); Mean Corpuscular Hemoglobin 28.1 pg (28.0-32.0); Mean Corpuscular Volume 81.5 fL (80.0-100.0); Nucleated Red Blood Cells % 0.0 %
--- NOTE | 2025-09-08 13:53 | DVH ---
EXAM: CT CT AB PEL WO CON-NO ORAL OR IV INDICATION: Bilateral flank pain TECHNIQUE: Volumetric multidetector CT images of the abdomen and pelvis were obtained without contrast. All CT scans at this facility use dose modulation, iterative reconstruction, and/or weight based dosing when appropriate to reduce radiation dose to as low as reasonably achievable. COMPARISON: CT CT AB PEL WO CON-NO ORAL OR IV on DOS: 10/09/24 FINDINGS: [LOWER CHEST]: The partially visualized lung bases are clear without a pleural effusion. The cardiac size is normal without pericardial effusion. [LIVER]: Diffuse hepatic steatosis [GALLBLADDER AND BILIARY TREE]: Surgically absent. [SPLEEN]: Unremarkable. [PANCREAS]: Unremarkable. [ADRENAL GLANDS]: Unremarkable [KIDNEYS]: No hydronephrosis. Multiple bilateral nonobstructive renal caliceal stones measuring up to 3-4 mm. No visualized distal ureteral stone. Areas of cortical [BLADDER]: Unremarkable for the degree distention. [REPRODUCTIVE ORGANS]: Hysterectomy. [BOWEL/MESENTERY]: Stomach is normal. No CT evidence of bowel obstruction. [id number] stool burden. Minimal sigmoid diverticulosis. Normal appendix. [ASCITES]: Absent [LYMPHADENOPATHY]: No pathologically enlarged lymph nodes by CT size criteria [VASCULATURE]: No aneurysmal dilatation. [ABDOMINAL WALL]: Small fat-containing umbilical hernia. [MUSCULOSKELETAL]: No acute fracture or aggressive focal osseous lesion. Multifocal degenerative change of the visualized spine. IMPRESSION: 1. No hydronephrosis. 2. Multiple bilateral nonobstructive renal caliceal stones measuring up to 3-4 mm. 3. Diffuse hepatic steatosis. Thinning of bilateral kidneys compatible with underlying medical renal disease.
[2025-09-08] MEDS: SODIUM CHLORIDE 0.9% 1,000 ML IVB ONE (14:08)
[2025-09-08] MEDS: ONDANSETRON HCL 4 MG/2 ML VIAL IV ONE (14:08)
[2025-09-08] MEDS: MORPHINE SULFATE 4 MG/ML SYR/VIAL IV ONE (14:09)
[2025-09-08 14:16] LABS: Carbon Dioxide 31 mmol/L (20-31); Glucose 136 mg/dL (74-106)
[2025-09-08 14:17] LABS: Potassium 2.4 mmol/L (3.5-5.1)
[2025-09-08] MEDS: POTASSIUM CHL 20 Meq TABLET PO ONE (14:30)
[2025-09-08] MEDS: LORazepam 2MG/ML-1ML VIAL IV ONE ×2 (15:13→19:14)
[2025-09-08 15:30] VITALS: PULSE 71; RESP 20; O2SAT 99
[2025-09-08] MEDS: levETIRAcetam 1000 mg/100ml 100 ML IV ONE (16:01)
[2025-09-08] MEDS: SODIUM CHLORIDE 0.9% 1,000 ML IV ONE ×4 (16:05→22:24)
[2025-09-08] MEDS: POTASSIUM CHL 20MEQ/100ML 100 ML IV ONE (16:45)
[2025-09-08 19:30] VITALS: O2SAT 100
[2025-09-08] MEDS: TAMSULOSIN HYDROCHLORIDE 0.4 MG CAP PO ONE (21:30)
[2025-09-08] MEDS: POLYETHYLENE GLYCOL 17 GM PWDR PO ONE (21:30)
[2025-09-08] MEDS ORDERED: ACETAMINOPHEN 325 MG TAB PO PRN (21:30)
[2025-09-08] MEDS ORDERED: HYDROmorphone HCL 2 MG/ML VL/or syr IV PRN (21:30)
[2025-09-08] MEDS ORDERED: LORazepam 2MG/ML-1ML VIAL IV PRN (21:30)
[2025-09-08 22:26] LABS: Urine Protein, UAD Negative (Negative)
[2025-09-08] MEDS: levETIRAcetam 500 mg/100ml 100 ML IV SCH (22:33)
--- NOTE | 2025-09-08 22:33 | DVH ---
CHEST RADIOGRAPH Indication: sob Technique: Single frontal view of the chest was obtained COMPARISON: XY KUB ABDOMEN SINGLE VIEW on DOS: 10/08/24 FINDINGS: Lungs and pleural spaces are clear. Cardiac silhouette and robert are within normal limits. Bones and soft tissues demonstrate no significant abnormality. IMPRESSION: No acute disease.
--- NOTE | 2025-09-08 22:34 | DVH ---
EXAM: CT HEAD WITHOUT CONTRAST INDICATION: seizures TECHNIQUE: CT of the head without intravenous contrast. Radiation Dose Information: CT Dose: CTDI volume is 53.5 mGy. Dose-length product is 966.4 mGy*cm The dose indicators for CT are the volume Computed Tomography (CT) Dose Index (CTDIvol) and the Dose Length Product (DLP), and are measured in units of mGy and mGy-cm, respectively. These indicators are not patient dose, but values generated from the CT scanner acquisition factors. The report includes radiation exposure data for exposures received during this examination. COMPARISON: CT HEAD WITHOUT CONTRAST on DOS: 01/23/25, CT HEAD WITHOUT CONTRAST on DOS: 10/09/24 FINDINGS: There is no evidence of acute intracranial hemorrhage, extra-axial collection, mass effect, midline shift, herniation or hydrocephalus. The ventricles, sulci and cisterns are age appropriate. The garcia-white differentiation is intact. Patchy periventricular and subcortical white matter hypoattenuation is nonspecific but may be related to small vessel ischemic disease. The visualized paranasal sinuses and mastoid air cells are clear. The surrounding soft tissues and osseous structures are unremarkable. IMPRESSION: No acute intracranial abnormality.
[2025-09-08 22:36] LABS: Benzodiazephine Screen, Urine Neg (NEGATIVE)
[2025-09-08 22:37] LABS: Opiate Scree,Urine Pos (NEGATIVE)
[2025-09-08 22:38] LABS: Amphetamine Screen, Urine Neg (NEGATIVE); Barbiturate Scree,Urine Neg (NEGATIVE); Cannabinoid Screen, Urine Neg (NEGATIVE); Cocaine Screen, Urine Neg (NEGATIVE); Phencyclidine Screen, Urine Neg (NEGATIVE)
[2025-09-08] MEDS: ONDANSETRON HCL 4 MG/2 ML VIAL IV PRN (22:40)
[2025-09-08 22:56] LABS: Albumin 3.8 g/dL (3.2-4.8); Alkaline Phosphatase 49 U/L (46-116); Anion Gap 11 (5-15); BUN/Creatinine Ratio 11.4 (10.0-20.0); Blood Urea Nitrogen 10 mg/dL (9-23); Carbon Dioxide 25 mmol/L (20-31); Glucose 92 mg/dL (74-106); Magnesium 2.2 mg/dL (1.6-2.6); Total Protein 6.4 g/dL (5.7-8.2)
[2025-09-08 22:57] LABS: Alanine Aminotransferase 54 U/L (7-40); Bilirubin, Total 0.5 mg/dL (0.2-1.0); Calcium 8.6 mg/dL (8.7-10.4); Chloride 110 mmol/L (98-107); Potassium 3.0 mmol/L (3.5-5.1); Sodium 146 mmol/L (136-145)
[2025-09-08 23:04] VITALS: PULSE 60
--- NOTE | 2025-09-08 23:53 | DVHHPRES ---
History of Present Illness Resident Creating Document: SVETLANA GOULD RESIDENT History of Present Illness 55-year-old female with a PMH of seizure disorders, bilateral nephrolithiasis , left renal stones S/P lithotripsy has come with chief complaints of bilateral flank pain. Patient reports pain has been persistent for the past 5 days, 10/10 in intensity, radiating to the right and left lower quadrants of the abdomen, with no aggravating or relieving factors, associated with nausea and generalized body pain. She denies vomiting, fever, chills ,or shortness of breath. On inquiry, patient admits to having burning micturition and dysuria for the past few days but denies any frequency or urgency. She reports that she was told by her PCP that she has bilateral renal stones. Patient also had 2 seizure activities in the emergency room, tonic-clonic, with no tongue biting or urinary incontinence. 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 On admission of vitals was stable temp 97.5, HR 60, RR 14, BP 116/68, SpO2 95% on room air. We are admitting the patient for further workup and management. Past medical history: As stated above Past surgical history: None Family history: Reviewed, noncontributory to the management of this case Social history: Patient denies any smoking, alcohol or illicit drug abuse Allergies: None PCP: Dr. Deann Nino Code status: Full code Review of Systems Constitutional: Yes: Malaise; No: Fever, Chills, Sweats, Weakness, Other Eyes: No: Pain, Vision change, Conjunctivae inflammation, Eyelid inflammation, Other, Redness ENT: No: Ear pain, Ear discharge, Nose pain, Nose discharge, Nose congestion, Mouth pain, Mouth swelling, Throat pain, Throat swelling, Other Respiratory: No: Cough, Dry, Shortness of breath, SOB with excertion, Wheezing, Hemoptysis, Pleuritic Pain, Sputum, Wheezing, Other Cardiovascular: No: Chest Pain, Palpitations, Orthopnea, Paroxysmal Noc. Dyspnea, Edema, Lt Headedness, Other Gastrointestinal: Nausea, Abdominal Pain; No: Vomiting, Diarrhea, Constipation, Melena, Hematochezia, Other Genitourinary: No Dysuria, No Frequency, No Incontinence, No Hematuria, No Retention; Other (Bilateral flank pain) Musculoskeletal: No: other, neck pain, shoulder pain, arm pain, back pain, hand pain, leg pain, foot pain Skin: No: Rash, Lesions, Jaundice, Bruising, Other Neurological: No: Weakness, Numbness, Incoordination, Change in speech, Confusion, Seizures, Other Allergies: Coded Allergies: NO KNOWN ALLERGIES (Unverified , 10/06/24) Medications Current Medications Medications Dose Ordered Sig/Silvia Route Start Time Stop Time Status Last Admin Dose Admin Potassium Chloride 100 ml @ 50 mls/hr Q2H IV 09/08/25 21:00 09/09/25 02:59 Acetaminophen/ Hydrocodone Bitart 1 tab Q4HP PRN PO 09/08/25 21:30 Ondansetron HCl 4 mg Q4HP PRN IV 09/08/25 21:30 09/08/25 22:40 4 MG Acetaminophen 650 mg Q6HP PRN PO 09/08/25 21:30 Ceftriaxone Sodium 50 ml @ 100 mls/hr DAILY@2200 IV 09/09/25 22:00 Tamsulosin HCl 0.4 mg QPM PO 09/09/25 18:00 Hydromorphone HCl 0.25 mg Q4HPRN PRN IV 09/08/25 21:30 Lorazepam 1 mg Q5MINP PRN IV 09/08/25 21:30 Levetiracetam 100 ml @ 400 mls/hr BID IV 09/08/25 22:00 09/08/25 22:33 400 MLS/HR Exam Vital Signs Vital Signs Date Time Temp Pulse Resp B/P (MAP) Pulse Ox O2 Delivery O2 Flow Rate FiO2 09/08/25 22:00 65 16 110/51 (70) 99 09/08/25 19:35 98.3 98.3 09/08/25 19:30 Room Air* 0 21 Exam Pt is lying on bed General Appearance: Alert, Oriented X3, Cooperative, patient is hyp ersomnolent, postictal state after seizure HEENT: Atraumatic, Mucous membranes moist/pink Respiratory: Clear to auscultation, Normal air movement, No added sounds Cardiovascular: Regular rate, Normal S1, Normal S2, No murmurs Abdominal: Active bowel sounds, Soft, no distention, suprapubic, right lower quadrant left lower quadrant tenderness on palpation, presence of costovertebral angle tenderness in bilateral flank Extremities: No edema, Normal pulses, No tenderness/swelling Skin: No Significant rash, except past surgical scars Neuro: Normal speech, sensorimotor deficits none Psych/Mental Status: Mental status NL, Mood NL Labs/Xrays Labs Test 09/08/25 22:25 09/08/25 22:00 09/08/25 13:09 Range/Units Sodium Level 146 H 136-145 mmol/L Potassium Level 3.0 L 3.5-5.1 mmol/L Chloride Level 110 #H 98-107 mmol/L Carbon Dioxide Level 25 20-31 mmol/L Anion Gap 11 5-15 Blood Urea Nitrogen 10 9-23 mg/dL Creatinine 0.88 0.550-1.02 mg/dL Glomerular Filtration Rate Calc 78 >90 mL/min BUN/Creatinine Ratio 11.4 10.0-20.0 Serum Glucose 92 74-106 mg/dL Calcium Level 8.6 L 8.7-10.4 mg/dL Magnesium Level 2.2 1.6-2.6 mg/dL Total Bilirubin 0.5 0.2-1.0 mg/dL Aspartate Amino Transferase (AST) 86 H 13-40 U/L Alanine Aminotransferase (ALT) 54 H 7-40 U/L Alkaline Phosphatase 49 46-116 U/L Total Protein 6.4 5.7-8.2 g/dL Albumin 3.8 3.2-4.8 g/dL Urine Color Light-yellow Yellow Urine Clarity Turbid H Clear Urine pH 7.0 5.0-9.0 Urine Specific [place] 1.009 1.001-1.035 Urine Protein Negative Negative Urine Ketones Negative Negative Urine Blood Negative Negative /uL Urine Nitrite 2+ H Negative Urine Bilirubin Negative Negative Urine Urobilinogen Normal Negative mg/dL Urine Leukocyte Esterase 3+ Negative /uL Urine RBC 1 0 - 4 /hpf Urine Microscopic WBC 76 H 0-5 /HPF Urine Squamous Epithelial Cells Few <5 /hpf Urine Bacteria Few H None Seen /hpf Urine Glucose Normal Normal mg/dL Urine Opiates Screen Pos NEGATIVE Urine Fentanyl Screen Neg NEGATIVE Urine Barbiturates Screen Neg NEGATIVE Urine Phencyclidine Screen Neg NEGATIVE Urine Amphetamines Screen Neg NEGATIVE Urine Benzodiazepines Screen Neg NEGATIVE Urine Cocaine Screen Neg NEGATIVE Urine Cannabinoids Screen Neg NEGATIVE White Blood Count 6.9 4.4-10.8 10^3/uL Red Blood Count 4.89 4.0-5.20 10^6/uL Hemoglobin 13.7 12.2-16.2 g/dL Hematocrit 39.9 36.0-46.0 % Mean Corpuscular Volume 81.5 80.0-100.0 fL Mean Corpuscular Hemoglobin 28.1 28.0-32.0 pg Mean Corpuscular Hemoglobin Concent 34.4 32.0-36.0 g/dL Red Cell Distribution Width 14.7 H 11.8-14.3 % Platelet Count 289 140-450 10^3/uL Mean Platelet Volume 8.7 6.9-10.8 fL Neutrophils (%) (Auto) 48.7 37.0-80.0 % Lymphocytes (%) (Auto) 42.5 10.0-50.0 % Monocytes (%) (Auto) 7.3 0.0-12.0 % Eosinophils (%) (Auto) 1.1 0.0-7.0 % Basophils (%) (Auto) 0.4 0.0-2.0 % Neutrophils # (Auto) 3.4 1.6-8.6 10 ^3/uL Lymphocytes # (Auto) 3.0 0.4-5.4 10 ^3/uL Monocytes # (Auto) 0.5 0-1.3 10 ^3/uL Eosinophils # (Auto) 0.1 0-0.8 10 ^3/uL Basophils # (Auto) 0 0-0.2 10 ^3/uL Nucleated Red Blood Cells 0.0 % Lactic Acid Level 1.1 0.4-2.0 mmol/L SEPSIS Sepsis Screen Date sepsis recognized/suspect: Sep 08, 2025 Time Sepsis recognized/suspect: 1529 Recent Procedure: No On Antibiotic Therapy: No Respiratory Rate >20: No Heart Rate >90: No Temp<36 C (96.8 F) or >38.3 C: No SBP <90 or MAP <65 mmHG: Yes New Acute Mental Status Change: No Is the patient on CPAP, BIPAP,: No Physician Orders Potassium (09/09/25 01:00) Potassium Chl 20meq/100ml (09/08/25 21:00) Admit (09/08/25 21:30) Code Status (09/08/25 21:30) Hydrocodone-Acet 5/325mg Tab ([place] 5/32 (09/08/25 21:30) Ondansetron Hcl (Zofran) (09/08/25 21:30) Complete Blood Count (09/09/25 04:00) Comprehensive Metabolic Panel (09/09/25 04:00) Condition: Unstable (09/08/25 21:30) Acetaminophen Tablet (Tylenol Tablet) (09/08/25 21:30) Regular Diet (09/09/25 Breakfast) *Consult Dr. Alissa Ly (09/08/25 21:30) Ceftriaxone 1gm/50ml (Rocephin) (09/09/25 22:00) Sodium Chloride 0.9% (09/08/25 21:30) Strain All Urine For Stones (09/08/25 21:30) Tamsulosin Hydrochloride (Flomax) (09/09/25 18:00) Hydromorphone Injection (Dilaudid Inject (09/08/25 21:30) Lorazepam 2mg/Ml Inj (Ativan Inj) (09/08/25 21:30) * Urology Consult (09/08/25 21:30) Chest Xray 1 View (09/08/25 21:30) Head Without Contrast (09/08/25 21:30) Urine Bacterial Culture (09/08/25:30) Communication Order (09/08/25 21:30) Levetiracetam 500 Mg/100ml (Levetiraceta (09/08/25 22:00) Vital Signs Date Time Temp Pulse Resp B/P (MAP) Pulse Ox O2 Delivery O2 Flow Rate FiO2 09/08/25 22:00 65 16 110/51 (70) 99 09/08/25 19:35 98.3 55 16 107/64 (78) 99 98.3 09/08/25 19:30 100 Room Air* 0 21 09/08/25 18:55 60 14 116/68 (84) 95 09/08/25 16:27 57 10 88/39 (55) 100 Laboratory Tests Test 09/08/25 13:09 Lactic Acid Level 1.1 mmol/L (0.4-2.0) White Blood Count 6.9 10^3/uL (4.4-10.8) Medications Medications Dose Ordered Sig/Silvia Route Start Time Stop Time Status Last Admin Dose Admin Ceftriaxone Sodium 50 ml @ 100 mls/hr ONCE ONCE IV 09/08/25 21:30 09/08/25 22:18 DC 09/08/25 22:40 100 MLS/HR Levetiracetam 100 ml @ 400 mls/hr BID IV 09/08/25 22:00 09/08/25 22:33 400 MLS/HR Levetiracetam 100 ml @ 400 mls/hr ONCE ONCE IV 09/08/25 15:15 09/08/25 15:29 DC 09/08/25 16:01 400 MLS/HR Lorazepam 1 mg ONCE ONCE IV 09/08/25 19:30 09/08/25 19:37 DC 09/08/25 19:14 1 MG Lorazepam 2 mg ONCE ONCE IV 09/08/25 15:15 09/08/25 15:16 DC 09/08/25 15:13 2 MG Morphine Sulfate 4 mg ONCE ONCE IV 09/08/25 12:45 09/08/25 12:46 DC 09/08/25 14:09 4 MG Ondansetron HCl 4 mg ONCE ONCE IV 09/08/25 12:45 09/08/25 12:46 DC 09/08/25 14:08 4 MG Ondansetron HCl 4 mg Q4HP PRN IV 09/08/25 21:30 09/08/25 22:40 4 MG Potassium Chloride 100 ml @ 50 mls/hr ONCE ONCE IV 09/08/25 14:30 09/08/25 16:29 DC 09/08/25 16:45 50 MLS/HR Sodium Chloride 1,000 ml @ 125 mls/hr Q8H ONCE IV 09/08/25 21:30 09/09/25 05:29 09/08/25 21:30 125 MLS/HR Sodium Chloride 1,000 ml @ 1,000 mls/hr Q1H ONCE IV 09/08/25 16:00 09/08/25 16:59 DC 09/08/25 16:05 1,000 MLS/HR Sodium Chloride 1,000 ml @ 1,000 mls/hr Q1H ONCE IV 09/08/25 18:45 09/08/25 19:44 DC 09/08/25 18:45 1,000 MLS/HR Sodium Chloride 1,000 ml @ 1,000 mls/hr Q1H ONCE IVB 09/08/25 12:45 09/08/25 13:44 DC 09/08/25 14:08 1,000 MLS/HR Assessment/Plan Assessment/Plan #Symptomatic UTI #B/l Nephrolithiasis - UA positive for UTI - IV NS 0.9% - IV ceftriaxone 1 g daily - pain management with: acetaminophen 650 mg q.6 PRN for mild pain [place] 5/325 mg q.4 PRN for moderate pain Dilaudid 0.25 mg q.4 PRN for severe pain - tamsulosin 0.4 mg p.o. daily - urine culture - blood culture - ondansetron IV 4 mg q.4 PRN - urology consult #Hypokalemia - repleted - magnesium 2.2 #Breakthrough seizure likely due to infection #Hx of Seizure disorder - Keppra 500 mg b.i.d. for now - Ativan 1 mg Q 5 minutes p.r.n. seizure - CT head shows no acute intracranial abnormality - neurology consult DVT prophylaxis: Lovenox 40 mg subcutaneous daily Diet: regular diet Goals of care discussed with the patient for more than 27 minutes: Full code status Case discussed with Dr. Mckinney, patient Plan discussed with: Patient My Orders Orders - SVETLANA GOULD RESIDENT Procedure Category Date Status Time Admit ADMIT 09/08/25 Transmitted 21:30 Code Status CODE 09/08/25 Transmitted 21:30 Hydrocodone-Acet PHA 09/08/25 In Process 5/325mg Tab ([place] 21:30 Ondansetron Hcl PHA 09/08/25 In Process (Zofran) 21:30 Complete Blood Count LAB 09/09/25 Verified 04:00 Comprehensive LAB 09/09/25 Verified Metabolic Panel 04:00 Condition: Unstable PATRICIA 09/08/25 In Process 21:30 Acetaminophen Tablet PHA 09/08/25 In Process (Tylenol Tablet) 21:30 Regular Diet DIET 09/09/25 Transmitted Breakfast *Consult Dr. Maxwell CONS 09/08/25 Transmitted Ly 21:30 Ceftriaxone 1gm/50ml PHA 09/09/25 In Process (Rocephin) 22:00 Sodium Chloride 0.9% PHA 09/08/25 In Process 21:30 Strain All Urine For PATRICIA 09/08/25 In Process Stones 21:30 Tamsulosin PHA 09/09/25 In Process Hydrochloride (Flomax) 18:00 Hydromorphone PHA 09/08/25 In Process Injection (Dilaudid 21:30 Lorazepam 2mg/Ml Inj PHA 09/08/25 In Process (Ativan Inj) 21:30 * Urology Consult CONS 09/08/25 Transmitted 21:30 Chest Xray 1 View XY 09/08/25 Resulted 21:[address] 09/08/25 Resulted 21:30 Urine Bacterial JOSE LUIS 09/08/25 In Process Culture 21:30 Communication Order ORDERS 09/08/25 Transmitted 21:30 Levetiracetam 500 PHA 09/08/25 In Process Mg/100ml (Levetiraceta 22:00 Date of Service: Sep 09, 2025 Billing Provider: JOSEPH MCKINNEY MD Common Visit Codes: [id number] INP/OBS CARE (HIGH) Secondary Visit Codes: [id number] CARE PLAN 30 MINUTES SVETLANA GOULD RESIDENT Sep 08, 2025 23:53
[2025-09-08] MEDS: POTASSIUM CHL 20MEQ/100ML 100 ML IV SCH (23:55)
[2025-09-09] VITALS (9 sets, daily range): BP systolic 101–113; BP diastolic 55–89; PULSE 58–77; RESP 16–18; TEMP 97.6–98.3; O2SAT 96–100
[2025-09-09] MEDS: POTASSIUM CHL 20 Meq TABLET PO ONE (04:30)
[2025-09-09 06:23] LABS: Hematocrit 35.1 % (36.0-46.0); Hemoglobin 11.5 g/dL (12.2-16.2); Mean Corpuscular Hemoglobin 28.0 pg (28.0-32.0); Mean Corpuscular Volume 85.2 fL (80.0-100.0); Nucleated Red Blood Cells % 0.1 %
[2025-09-09 06:49] LABS: Albumin 3.4 g/dL (3.2-4.8); Anion Gap 9 (5-15); BUN/Creatinine Ratio 13.3 (10.0-20.0); Bilirubin, Total 0.3 mg/dL (0.2-1.0); Blood Urea Nitrogen 11 mg/dL (9-23); Carbon Dioxide 25 mmol/L (20-31); Glucose 101 mg/dL (74-106); Potassium 3.8 mmol/L (3.5-5.1); Total Protein 5.9 g/dL (5.7-8.2)
[2025-09-09 06:50] LABS: Chloride 112 mmol/L (98-107); Sodium 146 mmol/L (136-145)
[2025-09-09 06:51] LABS: Alanine Aminotransferase 45 U/L (7-40); Alkaline Phosphatase 44 U/L (46-116); Calcium 8.3 mg/dL (8.7-10.4)
[2025-09-09] MEDS: ENOXAPARIN SOD 40 MG/0.4 ML SYRINGE SC SCH (09:48)
--- NOTE | 2025-09-09 12:09 | DVHINCON2 ---
Date of service: Sep 09, 2025 Referring Physician Hospitalist Reason for Consultation bilateral renal stones History of Present Illness History Source: Patient, RN Notes, MD Notes, Old Records Exam Limitations: No limitations HPI 55-year-old female with a PMH of seizure disorders, bilateral nephrolithiasis , left renal stones S/P lithotripsy has come with chief complaints of bilateral flank pain. Patient reports pain has been persistent for the past 5 days, 10/10 in intensity, radiating to the right and left lower quadrants of the abdomen, with no aggravating or relieving factors, associated with nausea and generalized body pain. She denies vomiting, fever, chills ,or shortness of breath. On inquiry, patient admits to having burning micturition and dysuria for the past few days but denies any frequency or urgency. She reports that she was told by her PCP that she has bilateral renal stones. Patient also had 2 seizure activities in the emergency room, tonic-clonic, with no tongue biting or urinary incontinence. 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 Home Meds Active Scripts Cephalexin (KEFLEX CAPSULE) 250 Mg Cp, 2 CAP PO BID for 5 Days, #20 CAP Prov:ARNDTCATE DO 01/25/25 Reported Medications Atorvastatin Calcium (Lipitor) 40 Mg Tab, 40 MG PO DAILY, TAB 10/06/24 Cholecalciferol (D3-50) 50,000 Unit Cap, 35403 UNIT PO Q7D, CAP 10/06/24 Sertraline Hcl (Sertraline Hcl) 50 Mg Tab, 50 MG PO DAILY, TAB 10/06/24 Divalproex Sodium (Depakote) 250 Mg Tab, 250 MG PO BID, TAB 10/06/24 Levothyroxine Sodium (Levothyroxine Sodium) 25 Mcg Cap, 25 MCG PO DAILY, CAP 10/06/24 Past Medical History Renal/: UTI Patient Family History: Cerebrovascular accident (CVA) G8 FATHER Diabetes mellitus G8 MOTHER G8 FATHER Hypertension G8 MOTHER G8 FATHER Ischemic heart disease G8 FATHER Smoker: No Hx (Negative) Alocohol: None Drugs: None Domestic Violence: Neg H&P Exam Vital Signs Vital Signs Date Time Temp Pulse Resp B/P (MAP) Pulse Ox O2 Delivery O2 Flow Rate FiO2 09/09/25 09:00 97.8 76 16 103/89 (94) 96 97.8 09/09/25 00:15 Nasal Cannula* 2 28 Labs/Xrays Labs Test 09/09/25 05:35 09/08/25 22:25 09/08/25 22:00 09/08/25 13:09 Range/Units White Blood Count 7.1 4.4-10.8 10^3/uL Red Blood Count 4.11 4.0-5.20 10^6/uL Hemoglobin 11.5 #L 12.2-16.2 g/dL Hematocrit 35.1 #L 36.0-46.0 % Mean Corpuscular Volume 85.2 # 80.0-100.0 fL Mean Corpuscular Hemoglobin 28.0 28.0-32.0 pg Mean Corpuscular Hemoglobin Concent 32.9 32.0-36.0 g/dL Red Cell Distribution Width 14.9 H 11.8-14.3 % Platelet Count 240 140-450 10^3/uL Mean Platelet Volume 8.6 6.9-10.8 fL Neutrophils (%) (Auto) 59.9 37.0-80.0 % Lymphocytes (%) (Auto) 29.6 10.0-50.0 % Monocytes (%) (Auto) 9.0 0.0-12.0 % Eosinophils (%) (Auto) 1.3 0.0-7.0 % Basophils (%) (Auto) 0.2 0.0-2.0 % Neutrophils # (Auto) 4.3 1.6-8.6 10 ^3/uL Lymphocytes # (Auto) 2.1 0.4-5.4 10 ^3/uL Monocytes # (Auto) 0.6 0-1.3 10 ^3/uL Eosinophils # (Auto) 0.1 0-0.8 10 ^3/uL Basophils # (Auto) 0 0-0.2 10 ^3/uL Nucleated Red Blood Cells 0.1 % Sodium Level 146 H 136-145 mmol/L Potassium Level 3.8 3.5-5.1 mmol/L Chloride Level 112 H 98-107 mmol/L Carbon Dioxide Level 25 20-31 mmol/L Anion Gap 9 5-15 Blood Urea Nitrogen 11 9-23 mg/dL Creatinine 0.83 0.550-1.02 mg/dL Glomerular Filtration Rate Calc 84 >90 mL/min BUN/Creatinine Ratio 13.3 10.0-20.0 Serum Glucose 101 74-106 mg/dL Calcium Level 8.3 L 8.7-10.4 mg/dL Total Bilirubin 0.3 0.2-1.0 mg/dL Aspartate Amino Transferase (AST) 56 H 13-40 U/L Alanine Aminotransferase (ALT) 45 H 7-40 U/L Alkaline Phosphatase 44 L 46-116 U/L Total Protein 5.9 5.7-8.2 g/dL Albumin 3.4 3.2-4.8 g/dL Thyroid Stimulating Hormone (TSH) 2.84 0.55-4.78 uIU/mL Magnesium Level 2.2 1.6-2.6 mg/dL Urine Color Light-yellow Yellow Urine Clarity Turbid H Clear Urine pH 7.0 5.0-9.0 Urine Specific [place] 1.009 1.001-1.035 Urine Protein Negative Negative Urine Ketones Negative Negative Urine Blood Negative Negative /uL Urine Nitrite 2+ H Negative Urine Bilirubin Negative Negative Urine Urobilinogen Normal Negative mg/dL Urine Leukocyte Esterase 3+ Negative /uL Urine RBC 1 0 - 4 /hpf Urine Microscopic WBC 76 H 0-5 /HPF Urine Squamous Epithelial Cells Few <5 /hpf Urine Bacteria Few H None Seen /hpf Urine Glucose Normal Normal mg/dL Urine Opiates Screen Pos NEGATIVE Urine Fentanyl Screen Neg NEGATIVE Urine Barbiturates Screen Neg NEGATIVE Urine Phencyclidine Screen Neg NEGATIVE Urine Amphetamines Screen Neg NEGATIVE Urine Benzodiazepines Screen Neg NEGATIVE Urine Cocaine Screen Neg NEGATIVE Urine Cannabinoids Screen Neg NEGATIVE Lactic Acid Level 1.1 0.4-2.0 mmol/L SILAS VU NP Sep 09, 2025 12:09
[2025-09-09] MEDS: SODIUM CHLORIDE 0.9% 1,000 ML IV SCH (13:02)
--- NOTE | 2025-09-09 15:40 | DVHPNRES ---
Progress Note Date Seen: Sep 09, 2025 Resident Creating Document: ERNST ARAYA RESIDENT Medical Necessity Reason Pt with a Central, PICC or Fol: No Subjective Review of Systems 55-year-old female with a PMH of seizure disorders, bilateral nephrolithiasis , left renal stones S/P lithotripsy has come with chief complaints of bilateral flank pain. Patient reports pain has been persistent for the past 5 days, 10/10 in intensity, radiating to the right and left lower quadrants of the abdomen, with no aggravating or relieving factors, associated with nausea and generalized body pain. She denies vomiting, fever, chills ,or shortness of breath. On inquiry, patient admits to having burning micturition and dysuria for the past few days but denies any frequency or urgency. She reports that she was told by her PCP that she has bilateral renal stones. Patient also had 2 seizure activities in the emergency room, tonic-clonic, with no tongue biting or urinary incontinence. 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 On admission of vitals was stable temp 97.5, HR 60, RR 14, BP 116/68, SpO2 95% on room air. We are admitting the patient for further workup and management. Past medical history: As stated above Past surgical history: None Family history: Reviewed, noncontributory to the management of this case Social history: Patient denies any smoking, alcohol or illicit drug abuse Allergies: None PCP: Dr. eDann Nino Code status: Full code Constitutional: Yes: Malaise; No: Fever, Chills, Sweats, Weakness, Other Eyes: No: Pain, Vision change, Conjunctivae inflammation, Eyelid inflammation, Other, Redness ENT: No: Ear pain, Ear discharge, Nose pain, Nose discharge, Nose congestion, Mouth pain, Mouth swelling, Throat pain, Throat swelling, Other Respiratory: No: Cough, Dry, Shortness of breath, SOB with excertion, Wheezing, Hemoptysis, Pleuritic Pain, Sputum, Wheezing, Other Cardiovascular: No: Chest Pain, Palpitations, Orthopnea, Paroxysmal Noc. Dyspnea, Edema, Lt Headedness, Other Gastrointestinal: Nausea, Abdominal Pain; No: Vomiting, Diarrhea, Constipation, Melena, Hematochezia, Other Genitourinary: No Dysuria, No Frequency, No Incontinence, No Hematuria, No Retention; Other (Bilateral flank pain) Musculoskeletal: No: other, neck pain, shoulder pain, arm pain, back pain, hand pain, leg pain, foot pain Skin: No: Rash, Lesions, Jaundice, Bruising, Other Neurological: No: Weakness, Numbness, Incoordination, Change in speech, Confusion, Seizures, Other Objective vital signs Vital Sign Date Time Temp Pulse Resp B/P (MAP) Pulse Ox O2 Delivery O2 Flow Rate FiO2 09/09/25 09:00 97.8 76 16 103/89 (94) 96 97.8 09/09/25 08:15 Nasal Cannula* 2 28 Total Intake and Output 09/08/25 09/08/25 09/09/25 15:00 23:00 07:00 Intake Total 1100 ml 300 ml Balance 1100 ml 300 ml medications Current Medications Medications Dose Ordered Sig/Silvia Route Start Time Stop Time Status Last Admin Dose Admin Acetaminophen/ Hydrocodone Bitart 1 tab Q4HP PRN PO 09/08/25 21:30 Ondansetron HCl 4 mg Q4HP PRN IV 09/08/25 21:30 09/08/25 22:40 4 MG Acetaminophen 650 mg Q6HP PRN PO 09/08/25 21:30 Ceftriaxone Sodium 50 ml @ 100 mls/hr DAILY@2200 IV 09/09/25 22:00 Tamsulosin HCl 0.4 mg QPM PO 09/09/25 18:00 Hydromorphone HCl 0.25 mg Q4HPRN PRN IV 09/08/25 21:30 Lorazepam 1 mg Q5MINP PRN IV 09/08/25 21:30 Levetiracetam 100 ml @ 400 mls/hr BID IV 09/08/25 22:00 09/09/25 09:48 400 MLS/HR Enoxaparin Sodium 40 mg DAILY SC 09/09/25 10:00 09/09/25 09:48 40 MG Sodium Chloride 1,000 ml @ 100 mls/hr Q10H IV 09/09/25 11:00 09/09/25 13:02 100 MLS/HR Examination General Appearance: Alert, Oriented X3, Cooperative, patient is hypersomnolent, postictal state after seizure HEENT: Atraumatic, Mucous membranes moist/pink Respiratory: Clear to auscultation, Normal air movement, No added sounds Cardiovascular: Regular rate, Normal S1, Normal S2, No murmurs Abdominal: Active bowel sounds, Soft, no distention, suprapubic, right lower quadrant left lower quadrant tenderness on palpation, presence of costovertebral angle tenderness in bilateral flank Extremities: No edema, Normal pulses, No tenderness/swelling Skin: No Significant rash, except past surgical scars Neuro: Normal speech, sensorimotor deficits none Psych/Mental Status: Mental status NL, Mood NL laboratory and microbiology Laboratory Tests 09/09/25 05:35 Test 09/09/25 05:35 Range/Units Serum Glucose 101 74-106 mg/dL Microbiology Date/Time Source Procedure Growth Status 09/08/25 13:15 Blood Blood Culture - Preliminary NO GROWTH AFTER 24 HOURS OF INCUBATION. Resulted Problem List/Assessment/Plan Problem List/Assessment/Plan Assessment and plan #Symptomatic UTI #B/l Nephrolithiasis - UA positive for UTI - IV NS 0.9% - IV ceftriaxone 1 g daily - pain management with: acetaminophen 650 mg q.6 PRN for mild pain [place] 5/325 mg q.4 PRN for moderate pain Dilaudid 0.25 mg q.4 PRN for severe pain - tamsulosin 0.4 mg p.o. daily - urine culture - blood culture - ondansetron IV 4 mg q.4 PRN - urology consult #Hypokalemia - repleted - magnesium 2.2 #Breakthrough seizure likely due to infection #Hx of Seizure disorder - Keppra 500 mg b.i.d. for now - Ativan 1 mg Q 5 minutes p.r.n. seizure - CT head shows no acute intracranial abnormality - neurology consult DVT prophylaxis: Lovenox 40 mg subcutaneous daily Diet: regular diet Plan discussed with: Patient My Orders My Orders Orders - ERNST ARAYA RESIDENT Procedure Category Date Status Time Sodium Chloride 0.9% PHA 09/09/25 In Process 11:00 Date of Service: Sep 09, 2025 Billing Provider: ALIE HONG MD Common Visit Codes: [id number] INP/OBS CARE(HIGH) ERNST ARAYA Sep 09, 2025 15:40 ALIE HONG MD Sep 11, 2025 17:09
[2025-09-09] MEDS: TAMSULOSIN HYDROCHLORIDE 0.4 MG CAP PO SCH (18:39)
[2025-09-09] MEDS: HYDROcodone-ACET 5/325MG TAB PO PRN (21:03)
--- NOTE | 2025-09-09 22:52 | DVHINCON2 ---
Date of service: Sep 09, [address] Merchant Reason for Consultation Seizure History of Present Illness Mr. Bernal is a 55 years old right-handed female with a history of anxiety, depression, kidney stone, [place] [facility] [place] with a chief complaint of flank pain, but she also have seizure disorder. At this time, she is alert, fully oriented, she is a poor historian, she does think, a lot of time she needs to think hard to answer my questions I saw on 01/25/2025 for altered mental status/seizure The patient was not remember, but according the ER note, the patient was had a 2 minutes seizure [facility]. The patient was relates she only remembers being in the ambulance and dropped to the [facility] [place] [facility] ER. She was said to have shaking all over body, and urinary incontinence. The last time she had similar activity was in summer of 2022 She does not remember for how long, but likely for 3-4 years she has a seizure disorder. She said the seizure started with anxiety and headache, and then she was said to have seizure, with company amnesia, on 09/09/2025, he mentioned she did not know her seizure symptoms, but she reports there was no other trauma but she did not have urinary incontinence; according to my consultation reports dated 01/25/2025, she reported that she had shaking all over body without biting, but with urinary incontinence. She does not know how often she has seizure, but he remembers one on 09/08/2025, another one in 07/2025 In 2022, the patient was admitted to the [facility] where she had wires on the head and video camera from her for five days, and she had one seizure there. On she was discharge, she was said to have stress related seizure, but [facility] did not change her medical treatment For five years, the patient was has periodic year, 10 pulsating right-sided headache with photophobia, sonophobia, this happens once or twice weekly, and lasts for 1-2 days each time, she was sees lights before the headache attack, Depakote, her current treatment, does not touch the headache She sees Dr. Reynoso, a local neurologist, according to the bottles, she is on Depakote, likely she takes 250 mg b.i.d., topiramate 25 mg daily (topiramate 25 mg b.i.d. caused fainting) UDS, 09/08/2025: Opiates Urinalysis, 09/08/2025: WBC: 76, RBC: 1, urine leukocyte esterase: 3+, urine nitrate: 2+ CBC, 09/08/2025: Unremarkable Na, 09/08/2025: 142, BUN 46, 09/09/2025: 146 TBI/AST/ALT/AP, 09/08/2025: 0.5/86/54/49, 09/09/2025: 0.3/56/45/44 TSH, 09/09/25: 2.84 CT head, 01/23/2025: No acute intracranial abnormality CT head, 09/08/2025: No acute intracranial abnormality CT, abdomen/pelvis, 09/08/2025: 1. No hydronephrosis. 2. Multiple bilateral nonobstructive renal caliceal stones measuring up to 3-4 mm. 3. Diffuse hepatic steatosis. Thinning of bilateral kidneys compatible with underlying medical renal disease Past Medical History Seizures, anxiety, depression, kidney stone Past Surgical History Hysterectomy, kidney stone removal, cholecystectomy, nephrostomy Family History: Cerebrovascular accident (CVA) G8 FATHER Diabetes mellitus G8 MOTHER G8 FATHER Hypertension G8 MOTHER G8 FATHER Ischemic heart disease G8 FATHER Family History Depression, anxiety, migraine headache, hypertension, diabetes, heart disease, stroke, one daughter has seizure with unknown etiology, Social History She has no history of smoking, alcohol or drug abuse Allergies: Coded Allergies: NO KNOWN ALLERGIES (Unverified , 10/06/24) Home Meds Active Scripts Cephalexin (KEFLEX CAPSULE) 250 Mg Cp, 2 CAP PO BID for 5 Days, #20 CAP Prov:ARNDT,CATE T DO 01/25/25 Reported Medications Atorvastatin Calcium (Lipitor) 40 Mg Tab, 40 MG PO DAILY, TAB 10/06/24 Cholecalciferol (D3-50) 50,000 Unit Cap, 67470 UNIT PO Q7D, CAP 10/06/24 Sertraline Hcl (Sertraline Hcl) 50 Mg Tab, 50 MG PO DAILY, TAB 10/06/24 Divalproex Sodium (Depakote) 250 Mg Tab, 250 MG PO BID, TAB 10/06/24 Levothyroxine Sodium (Levothyroxine Sodium) 25 Mcg Cap, 25 MCG PO DAILY, CAP 10/06/24 Current Medications Current Medications Medications (Trade) Dose Ordered Sig/Silvia Route PRN Reason Start Time Stop Time Status Last Admin Ceftriaxone Sodium 50 ml @ 100 mls/hr DAILY@2200 IV 09/09/25 22:00 09/09/25 21:03 Tamsulosin HCl (Flomax) 0.4 mg QPM PO 09/09/25 18:00 09/09/25 18:39 Enoxaparin Sodium (Lovenox) 40 mg DAILY SC 09/09/25 10:00 09/09/25 09:48 Sodium Chloride 1,000 ml @ 100 mls/hr Q10H IV 09/09/25 11:00 09/09/25 13:02 Review of Systems As above, the other systems are negative Vital Signs Vital Signs Date Time Temp Pulse Resp B/P (MAP) Pulse Ox O2 Delivery O2 Flow Rate FiO2 09/09/25 21:00 98.1 67 18 113/68 (83) 100 98.1 09/09/25 08:15 Nasal Cannula* 2 28 Physical Exam GENERAL EXAM: General: the patient is well developed and nourished. No acute distress. HEENT: Normocephalic, neck is supple, no carotid bruits. No mass. RESPIRATORY: Normal respiratory effort with symmetrical lung expansion. Lungs clear to auscultation. CARDIOVASCULAR: Regular rate and rhythm with no murmurs. S1, S2. ABDOMEN: Soft, nontender, normal bowel sound NEUROLOGICAL: MENTAL STATUS: Awake and alert. Oriented to person, place, time and general circumstances. Able to give personal history SPEECH, LANGUAGE, HIGHER CORTICAL FUNCTION: no aphasia or dysathria. CRANIAL NERVES: #2: Intact visual obrien to confrontation. The optic discs were sharp #3,4,6: Pupils are equal, round and reactive. EOMs full and conjugate. No nystagmus. #5: Facial sensation intact in all three divisions bilaterally. Mandibular strength intact. #7: Facial muscles symmetrical and strength intact. #8: Hearing grossly normal to voice. #9,10: Uvula and soft palate rise in the midline. Swallow and voice are normal. #11: Trapezius and sternomastoid strength intact bilaterally. #12: Tongue midline. No fasciculations or atrophy. SENSATION: Sensation to touch and pinprick is normal. MOTOR: Normal tone in the upper and lower extremity. Normal muscle bulk. No fasciculations. No abnormal movements or posturing. Muscle strength of the major groups in the upper extremities is 5/5. Muscle strength of the major groups in the lower extremities is 5/5. REFLEXES: Deep tendon reflexes are symmetrical. No pathological reflexes. CEREBELLAR/COORDINATION: Finger to nose and heel to stein are normal bilaterally. GAIT/STATION: deferred Labs/Diagnostic Data Labs Test 09/09/25 05:35 09/08/25 22:25 09/08/25 22:00 09/08/25 13:09 Range/Units White Blood Count 7.1 4.4-10.8 10^3/uL Red Blood Count 4.11 4.0-5.20 10^6/uL Hemoglobin 11.5 #L 12.2-16.2 g/dL Hematocrit 35.1 #L 36.0-46.0 % Mean Corpuscular Volume 85.2 # 80.0-100.0 fL Mean Corpuscular Hemoglobin 28.0 28.0-32.0 pg Mean Corpuscular Hemoglobin Concent 32.9 32.0-36.0 g/dL Red Cell Distribution Width 14.9 H 11.8-14.3 % Platelet Count 240 140-450 10^3/uL Mean Platelet Volume 8.6 6.9-10.8 fL Neutrophils (%) (Auto) 59.9 37.0-80.0 % Lymphocytes (%) (Auto) 29.6 10.0-50.0 % Monocytes (%) (Auto) 9.0 0.0-12.0 % Eosinophils (%) (Auto) 1.3 0.0-7.0 % Basophils (%) (Auto) 0.2 0.0-2.0 % Neutrophils # (Auto) 4.3 1.6-8.6 10 ^3/uL Lymphocytes # (Auto) 2.1 0.4-5.4 10 ^3/uL Monocytes # (Auto) 0.6 0-1.3 10 ^3/uL Eosinophils # (Auto) 0.1 0-0.8 10 ^3/uL Basophils # (Auto) 0 0-0.2 10 ^3/uL Nucleated Red Blood Cells 0.1 % Sodium Level 146 H 136-145 mmol/L Potassium Level 3.8 3.5-5.1 mmol/L Chloride Level 112 H 98-107 mmol/L Carbon Dioxide Level 25 20-31 mmol/L Anion Gap 9 5-15 Blood Urea Nitrogen 11 9-23 mg/dL Creatinine 0.83 0.550-1.02 mg/dL Glomerular Filtration Rate Calc 84 >90 mL/min BUN/Creatinine Ratio 13.3 10.0-20.0 Serum Glucose 101 74-106 mg/dL Calcium Level 8.3 L 8.7-10.4 mg/dL Total Bilirubin 0.3 0.2-1.0 mg/dL Aspartate Amino Transferase (AST) 56 H 13-40 U/L Alanine Aminotransferase (ALT) 45 H 7-40 U/L Alkaline Phosphatase 44 L 46-116 U/L Total Protein 5.9 5.7-8.2 g/dL Albumin 3.4 3.2-4.8 g/dL Thyroid Stimulating Hormone (TSH) 2.84 0.55-4.78 uIU/mL Magnesium Level 2.2 1.6-2.6 mg/dL Urine Color Light-yellow Yellow Urine Clarity Turbid H Clear Urine pH 7.0 5.0-9.0 Urine Specific [place] 1.009 1.001-1.035 Urine Protein Negative Negative Urine Ketones Negative Negative Urine Blood Negative Negative /uL Urine Nitrite 2+ H Negative Urine Bilirubin Negative Negative Urine Urobilinogen Normal Negative mg/dL Urine Leukocyte Esterase 3+ Negative /uL Urine RBC 1 0 - 4 /hpf Urine Microscopic WBC 76 H 0-5 /HPF Urine Squamous Epithelial Cells Few <5 /hpf Urine Bacteria Few H None Seen /hpf Urine Glucose Normal Normal mg/dL Urine Opiates Screen Pos NEGATIVE Urine Fentanyl Screen Neg NEGATIVE Urine Barbiturates Screen Neg NEGATIVE Urine Phencyclidine Screen Neg NEGATIVE Urine Amphetamines Screen Neg NEGATIVE Urine Benzodiazepines Screen Neg NEGATIVE Urine Cocaine Screen Neg NEGATIVE Urine Cannabinoids Screen Neg NEGATIVE Lactic Acid Level 1.1 0.4-2.0 mmol/L Microbiology Date/Time Source Procedure Growth Status 09/08/25 13:15 Blood Blood Culture - Preliminary NO GROWTH AFTER 24 HOURS OF INCUBATION. 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 Topamax 25 mg daily Urinalysis on case She has been advised not to drive until she cleared by her doctor Follow up with her doctors, including neurologist RANDI on discharge Progress: Poor Time spent is 55 minutes This medical document was created using an electronic medical record system with [employer] dictation system. Although this document has been carefully reviewed, there may still be some phonetic and typographical errors. These areas are purely typographical due to imperfections of the software programs, and do not reflect any compromise in the patient's medical care Plan discussed with: Patient, Other ANUEL EVANS MD Sep 09, 2025 22:52
[2025-09-10 01:00] VITALS: BP 97/60; PULSE 60; RESP 17; TEMP 97.9; O2SAT 100
[2025-09-10 05:00] VITALS: BP 99/54; PULSE 60; RESP 17; TEMP 98.2; O2SAT 100
[2025-09-10 06:28] LABS: Hematocrit 33.1 % (36.0-46.0); Hemoglobin 11.0 g/dL (12.2-16.2); Mean Corpuscular Hemoglobin 28.3 pg (28.0-32.0); Mean Corpuscular Volume 85.1 fL (80.0-100.0); Nucleated Red Blood Cells % 0.0 %
[2025-09-10 06:43] LABS: Alanine Aminotransferase 29 U/L (7-40); Alkaline Phosphatase 47 U/L (46-116); Anion Gap 10 (5-15); BUN/Creatinine Ratio 14.3 (10.0-20.0); Blood Urea Nitrogen 13 mg/dL (9-23); Carbon Dioxide 24 mmol/L (20-31); Potassium 3.5 mmol/L (3.5-5.1)
[2025-09-10 06:44] LABS: Albumin 3.4 g/dL (3.2-4.8)
[2025-09-10 06:58] LABS: Bilirubin, Total 0.2 mg/dL (0.2-1.0); Calcium 8.3 mg/dL (8.7-10.4); Chloride 111 mmol/L (98-107); Glucose 110 mg/dL (74-106); Sodium 145 mmol/L (136-145); Total Protein 5.7 g/dL (5.7-8.2)
[2025-09-10 09:00] VITALS: BP 133/71; PULSE 53; RESP 16; TEMP 97.1; O2SAT 95
[2025-09-10] MEDS: TOPIRAMATE 25 MG TAB PO SCH (09:11)
[2025-09-10 13:00] VITALS: BP 96/53; PULSE 66; RESP 16; TEMP 98.8; O2SAT 99
--- NOTE | 2025-09-10 16:38 | DVHPNRES ---
Progress Note Date Seen: Sep 10, 2025 Resident Creating Document: ERNST ARAYA RESIDENT Medical Necessity Reason Pt with a Central, PICC or Fol: No Subjective Review of Systems Patient seen at bedside. She reports that the abdominal pain has come down. No new complaints. 55-year-old female with a PMH of seizure disorders, bilateral nephrolithiasis , left renal stones S/P lithotripsy has come with chief complaints of bilateral flank pain. Patient reports pain has been persistent for the past 5 days, 10/10 in intensity, radiating to the right and left lower quadrants of the abdomen, with no aggravating or relieving factors, associated with nausea and generalized body pain. She denies vomiting, fever, chills ,or shortness of breath. On inquiry, patient admits to having burning micturition and dysuria for the past few days but denies any frequency or urgency. She reports that she was told by her PCP that she has bilateral renal stones. Patient also had 2 seizure activities in the emergency room, tonic-clonic, with no tongue biting or urinary incontinence. 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 On admission of vitals was stable temp 97.5, HR 60, RR 14, BP 116/68, SpO2 95% on room air. We are admitting the patient for further workup and management. Past medical history: As stated above Past surgical history: None Family history: Reviewed, noncontributory to the management of this case Social history: Patient denies any smoking, alcohol or illicit drug abuse Allergies: None PCP: Dr. Deann Nino Code status: Full code Constitutional: Yes: Malaise; No: Fever, Chills, Sweats, Weakness, Other Eyes: No: Pain, Vision change, Conjunctivae inflammation, Eyelid inflammation, Other, Redness ENT: No: Ear pain, Ear discharge, Nose pain, Nose discharge, Nose congestion, Mouth pain, Mouth swelling, Throat pain, Throat swelling, Other Respiratory: No: Cough, Dry, Shortness of breath, SOB with excertion, Wheezing, Hemoptysis, Pleuritic Pain, Sputum, Wheezing, Other Cardiovascular: No: Chest Pain, Palpitations, Orthopnea, Paroxysmal Noc. Dyspnea, Edema, Lt Headedness, Other Gastrointestinal: Nausea, Abdominal Pain; No: Vomiting, Diarrhea, Constipation, Melena, Hematochezia, Other Genitourinary: No Dysuria, No Frequency, No Incontinence, No Hematuria, No Retention; Other (Bilateral flank pain) Musculoskeletal: No: other, neck pain, shoulder pain, arm pain, back pain, hand pain, leg pain, foot pain Skin: No: Rash, Lesions, Jaundice, Bruising, Other Neurological: No: Weakness, Numbness, Incoordination, Change in speech, Confusion, Seizures, Other Objective vital signs Vital Sign Date Time Temp Pulse Resp B/P (MAP) Pulse Ox O2 Delivery O2 Flow Rate FiO2 09/10/25 13:00 98.8 66 16 96/53 (67) 99 98.8 09/10/25 08:00 Nasal Cannula* 2 28 Total Intake and Output 09/09/25 09/09/25 09/10/25 15:00 23:00 07:00 Intake Total 100 ml 550 ml 820 ml Balance 100 ml 550 ml 820 ml medications Current Medications Medications Dose Ordered Sig/Silvia Route Start Time Stop Time Status Last Admin Dose Admin Acetaminophen/ Hydrocodone Bitart 1 tab Q4HP PRN PO 09/08/25 21:30 09/09/25 21:03 1 TAB Ondansetron HCl 4 mg Q4HP PRN IV 09/08/25 21:30 09/09/25 16:47 4 MG Acetaminophen 650 mg Q6HP PRN PO 09/08/25 21:30 Ceftriaxone Sodium 50 ml @ 100 mls/hr DAILY@2200 IV 09/09/25 22:00 09/09/25 21:03 100 MLS/HR Tamsulosin HCl 0.4 mg QPM PO 09/09/25 18:00 09/09/25 18:39 0.4 MG Hydromorphone HCl 0.25 mg Q4HPRN PRN IV 09/08/25 21:30 Enoxaparin Sodium 40 mg DAILY SC 09/09/25 10:00 09/10/25 09:12 40 MG Sodium Chloride 1,000 ml @ 100 mls/hr Q10H IV 09/09/25 11:00 09/10/25 06:01 100 MLS/HR Lorazepam 1 mg Q5MINP PRN IV 09/09/25 23:30 Topiramate 25 mg Q12HR PO 09/10/25 22:00 Divalproex Sodium 500 mg BID PO 09/10/25 22:00 Examination General Appearance: Alert, Oriented X3, Cooperative, patient is hypersomnolent, postictal state after seizure HEENT: Atraumatic, Mucous membranes moist/pink Respiratory: Clear to auscultation, Normal air movement, No added sounds Cardiovascular: Regular rate, Normal S1, Normal S2, No murmurs Abdominal: Active bowel sounds, Soft, no distention, suprapubic, right lower quadrant left lower quadrant tenderness on palpation, presence of costovertebral angle tenderness in bilateral flank Extremities: No edema, Normal pulses, No tenderness/swelling Skin: No Significant rash, except past surgical scars Neuro: Normal speech, sensorimotor deficits none Psych/Mental Status: Mental status NL, Mood NL laboratory and microbiology Laboratory Tests 09/10/25 05:43 Test 09/10/25 05:43 Range/Units Serum Glucose 110 H 74-106 mg/dL Microbiology Date/Time Source Procedure Growth Status 09/08/25 22:00 Voided Urine Urine Culture - Preliminary Resulted 09/08/25 13:15 Blood Blood Culture - Preliminary NO GROWTH AFTER 48 HOURS OF INCUBATION. Resulted Problem List/Assessment/Plan Problem List/Assessment/Plan Assessment and plan # acute complicated UTI #B/l Nephrolithiasis # mild hypernatremia due to above - UA positive for UTI - IV NS 0.9% - IV ceftriaxone 1 g daily - pain management with: acetaminophen 650 mg q.6 PRN for mild pain [place] 5/325 mg q.4 PRN for moderate pain Dilaudid 0.25 mg q.4 PRN for severe pain - tamsulosin 0.4 mg p.o. daily - urine culture - blood culture - ondansetron IV 4 mg q.4 PRN - urology consult #Hypokalemia - repleted - magnesium 2.2 #Breakthrough seizure likely due to infection #Hx of Seizure disorder - Keppra 500 mg b.i.d. for now - Ativan 1 mg Q 5 minutes p.r.n. seizure - CT head shows no acute intracranial abnormality - neurology consult DVT prophylaxis: Lovenox 40 mg subcutaneous daily Diet: regular diet Plan discussed with: Patient My Orders My Orders Orders - ERNST ARAYA RESIDENT Procedure Category Date Status Time Topiramate (Topamax) PHA 09/10/25 In Process 22:00 Date of Service: Sep 10, 2025 Billing Provider: ALIE HONG MD Common Visit Codes: [id number] INP/OBS CARE(HIGH) ERNST ARAYA RESIDENT Sep 10, 2025 16:38 ALIE HONG MD Sep 11, 2025 17:09
[2025-09-10 17:14] VITALS: BP 116/69; PULSE 65; RESP 18; TEMP 99.1; O2SAT 99
--- NOTE | 2025-09-10 19:26 | DVHPN2 ---
Progress Note - Dictate Date Seen: Sep 10, 2025 Medical Necessity Reason Pt with a Central, PICC or Fol: No Subjective Mr. Bernal is a 55 years old right-handed female with a history of anxiety, depression, kidney stone, she came to the [facility] on 09/08/2025 with a chief complaint of flank pain, but she also have seizure disorder. I saw on 01/25/2025 for altered mental status/seizure I have seen and examined the patient along with her nurse, I have gone through her medications with her and her nurse, and she confirmed that she takes topiramate 25 mg once a day, Depakote 250 mg b.i.d. No seizure activity in the hospital UDS, 09/08/2025: Opiates Urinalysis, 09/08/2025: WBC: 76, RBC: 1, urine leukocyte esterase: 3+, urine nitrate: 2+ CBC, 09/08/2025: Unremarkable Na, 09/08/2025: 142, BUN 46, 09/09/2025: 146 TBI/AST/ALT/AP, 09/08/2025: 0.5/86/54/49, 09/09/2025: 0.3/56/45/44 TSH, 09/09/25: 2.84 CT head, 01/23/2025: No acute intracranial abnormality CT head, 09/08/2025: No acute intracranial abnormality CT, abdomen/pelvis, 09/08/2025: 1. No hydronephrosis. 2. Multiple bilateral nonobstructive renal caliceal stones measuring up to 3-4 mm. 3. Diffuse hepatic steatosis. Thinning of bilateral kidneys compatible with underlying medical renal disease vital signs Vital Sign Date Time Temp Pulse Resp B/P (MAP) Pulse Ox O2 Delivery O2 Flow Rate FiO2 09/10/25 17:14 99.1 65 18 116/69 (85) 99 99.1 09/10/25 08:00 Nasal Cannula* 2 28 Total Intake and Output 09/09/25 09/09/25 09/10/25 15:00 23:00 07:00 Intake Total 100 ml 550 ml 820 ml Balance 100 ml 550 ml 820 ml medications Current Medications Medications Dose Ordered Sig/Silvia Route Start Time Stop Time Status Last Admin Dose Admin Acetaminophen/ Hydrocodone Bitart 1 tab Q4HP PRN PO 09/08/25 21:30 11/6/25 21:03 1 TAB Ondansetron HCl 4 mg Q4HP PRN IV 09/08/25 21:30 09/09/25 16:47 4 MG Acetaminophen 650 mg Q6HP PRN PO 09/08/25 21:30 Ceftriaxone Sodium 50 ml @ 100 mls/hr DAILY@2200 IV 09/09/25 22:00 09/09/25 21:03 100 MLS/HR Tamsulosin HCl 0.4 mg QPM PO 09/09/25 18:00 09/10/25 17:06 0.4 MG Hydromorphone HCl 0.25 mg Q4HPRN PRN IV 09/08/25 21:30 Enoxaparin Sodium 40 mg DAILY SC 09/09/25 10:00 09/10/25 09:12 40 MG Sodium Chloride 1,000 ml @ 100 mls/hr Q10H IV 09/09/25 11:00 09/10/25 17:11 100 MLS/HR Lorazepam 1 mg Q5MINP PRN IV 09/09/25 23:30 Topiramate 25 mg Q12HR PO 09/10/25 22:00 Divalproex Sodium 500 mg BID PO 09/10/25 22:00 objective General: the patient is well developed and nourished. No acute distress. MENTAL STATUS: Awake and alert. Oriented to person, place, time and general circumstances. Able to give personal history SPEECH, LANGUAGE, HIGHER CORTICAL FUNCTION: no aphasia or dysathria. CRANIAL NERVES: Pupils are equal, round and reactive. EOMs full and conjugate. No nystagmus. Facial sensation intact in all three divisions bilaterally. Mandibular strength intact. Facial muscles symmetrical and strength intact. Tongue midline. No fasciculations or atrophy. SENSATION: Sensation to touch and pinprick is normal. MOTOR: Normal tone in the upper and lower extremity. Normal muscle bulk. No fasciculations. No abnormal movements or posturing. Muscle strength of the major groups in the extremities is 5/5. REFLEXES: Deep tendon reflexes are symmetrical. No pathological reflexes. CEREBELLAR/COORDINATION: Finger to nose and heel to stein are normal bilaterally. GAIT/STATION: deferred laboratory and microbiology Laboratory Tests 09/10/25 05:43 Test 09/10/25 05:43 Range/Units Serum Glucose 110 H 74-106 mg/dL Problem List Grand mal seizure Psychogenic nonepileptic seizure VS Epileptic seizure Migraine headache with aura Urinary tract infection Kidney stone Assessment/Plan Monitoring Supportive treatment Telemetry IV antibiotics Ativan for seizure breakthrough Depakote 250 b.i.d. D/C Topamax 25 mg daily (kidney stone) Urinalysis on case She has been advised not to drive until she cleared by her doctor Follow up with her doctors, including neurologist RANDI on discharge This medical document was created using an electronic medical record system with [employer] dictation system. Although this document has been carefully reviewed, there may still be some phonetic and typographical errors. These areas are purely typographical due to imperfections of the software programs, and do not reflect any compromise in the patient's medical care Prognosis poor Plan discussed with: Patient, Other Total Time (mins): 35 ANUEL EVANS MD Sep 10, 2025 19:26
[2025-09-10 21:00] VITALS: BP 108/69; PULSE 63; RESP 18; TEMP 99; O2SAT 98
[2025-09-10] MEDS: LORazepam 2MG/ML-1ML VIAL IV PRN (21:24)
[2025-09-10] MEDS ORDERED: TOPIRAMATE 25 MG TAB PO SCH (22:00)
[2025-09-11 01:00] VITALS: BP 103/55; PULSE 60; RESP 16; TEMP 98.4; O2SAT 98
[2025-09-11 05:00] VITALS: BP 114/68; PULSE 60; RESP 16; TEMP 97.5; O2SAT 99
[2025-09-11 06:21] LABS: COVID19 ANTIGEN SOFIA FIA NEGATIVE (NEGATIVE)
[2025-09-11 07:02] LABS: Hematocrit 32.4 % (36.0-46.0); Hemoglobin 10.9 g/dL (12.2-16.2); Mean Corpuscular Hemoglobin 28.4 pg (28.0-32.0); Mean Corpuscular Volume 84.5 fL (80.0-100.0); Nucleated Red Blood Cells % 0.1 %
[2025-09-11 07:23] LABS: Alanine Aminotransferase 28 U/L (7-40); Albumin 3.5 g/dL (3.2-4.8); Alkaline Phosphatase 47 U/L (46-116); Anion Gap 9 (5-15); BUN/Creatinine Ratio 13.3 (10.0-20.0); Bilirubin, Total 0.3 mg/dL (0.2-1.0); Blood Urea Nitrogen 11 mg/dL (9-23); Calcium 8.7 mg/dL (8.7-10.4); Carbon Dioxide 24 mmol/L (20-31); Potassium 4.0 mmol/L (3.5-5.1); Sodium 145 mmol/L (136-145); Total Protein 5.9 g/dL (5.7-8.2)
[2025-09-11 07:30] LABS: Chloride 112 mmol/L (98-107); Glucose 111 mg/dL (74-106)
[2025-09-11 09:03] VITALS: BP 98/52; PULSE 55; RESP 18; TEMP 98.5; O2SAT 99
[2025-09-11 13:04] VITALS: BP 102/59; PULSE 55; RESP 17; TEMP 98.7; O2SAT 99
--- NOTE | 2025-09-11 15:36 | DVHDSRES ---
Discharge Summary Date of Admission Resident Creating Document: ERNST ARAYA RESIDENT Sep 08, 2025 at 21:30 Date of Discharge: Sep 11, 2025 Labs/Diagnostic Data: Laboratory Results Test 09/11/25 06:39 09/10/25 05:43 09/10/25 04:30 09/09/25 05:35 White Blood Count 6.2 10^3/uL (4.4-10.8) Red Blood Count 3.84 10^6/uL (4.0-5.20) Hemoglobin 10.9 g/dL (12.2-16.2) Hematocrit 32.4 % (36.0-46.0) Mean Corpuscular Volume 84.5 fL (80.0-100.0) Mean Corpuscular Hemoglobin 28.4 pg (28.0-32.0) Mean Corpuscular Hemoglobin Concent 33.6 g/dL (32.0-36.0) Red Cell Distribution Width 14.8 % (11.8-14.3) Platelet Count 231 10^3/uL (140-450) Mean Platelet Volume 8.5 fL (6.9-10.8) Neutrophils (%) (Auto) 48.9 % (37.0-80.0) Lymphocytes (%) (Auto) 40.4 % (10.0-50.0) Monocytes (%) (Auto) 7.8 % (0.0-12.0) Eosinophils (%) (Auto) 2.6 % (0.0-7.0) Basophils (%) (Auto) 0.3 % (0.0-2.0) Neutrophils # (Auto) 3.0 10 ^3/uL (1.6-8.6) Lymphocytes # (Auto) 2.5 10 ^3/uL (0.4-5.4) Monocytes # (Auto) 0.5 10 ^3/uL (0-1.3) Eosinophils # (Auto) 0.2 10 ^3/uL (0-0.8) Basophils # (Auto) 0 10 ^3/uL (0-0.2) Nucleated Red Blood Cells 0.1 % Sodium Level 145 mmol/L (136-145) Potassium Level 4.0 mmol/L (3.5-5.1) Chloride Level 112 mmol/L (98-107) Carbon Dioxide Level 24 mmol/L (20-31) Anion Gap 9 (5-15) Blood Urea Nitrogen 11 mg/dL (9-23) Creatinine 0.83 mg/dL (0.550-1.02) Glomerular Filtration Rate Calc 84 mL/min (>90) BUN/Creatinine Ratio 13.3 (10.0-20.0) Serum Glucose 111 mg/dL (74-106) Calcium Level 8.7 mg/dL (8.7-10.4) Total Bilirubin 0.3 mg/dL (0.2-1.0) Aspartate Amino Transferase (AST) 25 U/L (13-40) Alanine Aminotransferase (ALT) 28 U/L (7-40) Alkaline Phosphatase 47 U/L (46-116) Total Protein 5.9 g/dL (5.7-8.2) Albumin 3.5 g/dL (3.2-4.8) Hemoglobin A1c 6.5 % A1C (<5.7) B-Type Natriuretic Peptide 83.92 pg/mL (0-100) Valproic Acid Level 3.1 ug/mL (50-100) Plasma/Serum Blood Alcohol < 3.0 mg/dL (<10) Influenza Type A Antigen Negative (Negative) Influenza Type B Antigen Negative (Negative) SARS-CoV-2 Antigen (Rapid) Negative (NEGATIVE) Thyroid Stimulating Hormone (TSH) 2.84 uIU/mL (0.55-4.78) Test 09/08/25 22:25 09/08/25 22:00 09/08/25 13:09 Magnesium Level 2.2 mg/dL (1.6-2.6) Urine Color Light-yellow (Yellow) Urine Clarity Turbid (Clear) Urine pH 7.0 (5.0-9.0) Urine Specific [place] 1.009 (1.001-1.035) Urine Protein Negative (Negative) Urine Ketones Negative (Negative) Urine Blood Negative /uL (Negative) Urine Nitrite 2+ (Negative) Urine Bilirubin Negative (Negative) Urine Urobilinogen Normal mg/dL (Negative) Urine Leukocyte Esterase 3+ /uL (Negative) Urine RBC 1 /hpf (0 - 4) Urine Microscopic WBC 76 /HPF (0-5) Urine Squamous Epithelial Cells Few /hpf (<5) Urine Bacteria Few /hpf (None Seen) Urine Glucose Normal mg/dL (Normal) Urine Opiates Screen Pos (NEGATIVE) Urine Fentanyl Screen Neg (NEGATIVE) Urine Barbiturates Screen Neg (NEGATIVE) Urine Phencyclidine Screen Neg (NEGATIVE) Urine Amphetamines Screen Neg (NEGATIVE) Urine Benzodiazepines Screen Neg (NEGATIVE) Urine Cocaine Screen Neg (NEGATIVE) Urine Cannabinoids Screen Neg (NEGATIVE) Lactic Acid Level 1.1 mmol/L (0.4-2.0) Other Laboratory Tests 09/11/25 06:39 Brief Hx & Hospital Course: 55-year-old female with a PMH of seizure disorders, bilateral nephrolithiasis , left renal stones S/P lithotripsy came with chief complaints of bilateral flank pain. Patient reported pain has been persistent for the past 5 days, 10/10 in intensity, radiating to the right and left lower quadrants of the abdomen, with no aggravating or relieving factors, associated with nausea and generalized body pain. She denied vomiting, fever, chills ,or shortness of breath. On inquiry, patient admited to having burning micturition and dysuria for the past few days but denied any frequency or urgency. She reported that she was told by her PCP that she has bilateral renal stones. Patient also had 2 witnessed seizure activities in the emergency room, tonic-clonic, with no tongue biting or urinary incontinence. Urinalysis revealed urinary tract infection. CT head showed no acute intracranial abnormality. Chest x-ray showed no cardiopulmonary abnormalities. CT abdomen showed multiple bilateral nonobstructive renal calculi measuring up to 3-4 mm, thinning of bilateral kidneys and diffuse hepatic steatosis. She was treated with antibiotics, pain killers, IV fluids. During the course of hospitalization patient was clinically better and is hence being discharged. Condition at Discharge: Fair Final Diagnosis/Problems List #acute complicated UTI #B/l Nephrolithiasis #mild hypernatremia due to above #hepatic steatosis likely due to NAFLD #Hypokalemia #Breakthrough seizure likely due to infection #Hx of Seizure disorder Discharge Disposition: Home Discharge Instruct/Medications Scheduled Atorvastatin Calcium (Lipitor), 40 MG PO DAILY, (Reported) Cephalexin (Keflex Capsule), 2 CAP PO BID Cholecalciferol (D3-50), 50,000 UNIT PO Q7D, (Reported) Divalproex Sodium (Depakote), 250 MG PO BID, (Reported) Levothyroxine Sodium (Levothyroxine Sodium), 25 MCG PO DAILY, (Reported) Sertraline Hcl (Sertraline Hcl), 50 MG PO DAILY, (Reported) Discharge Statement: "Patient was advised to return to the ER or call 911 if any headaches, dizziness, shortness of breath, chest pain, abdominal pain, bleeding, fevers, or worsening of medical condition. Patient was counseled about treatment plan, medications, possible side effects, patientverbalized understanding. All questions were answered to the best of my ability. This discharge took greater then 30 minutes in planning, reviewing documentation, counseling the patient, and discussing with other team members." ASSESSMENT ASSESSMENT Assessment Date of Service: Sep 11, 2025 Billing Provider: ALIE HONG MD Common Visit Codes: 93462-NSW/OBS DISCH DAY >30min ERNST ARAYA Sep 11, 2025 15:36 ALIE HONG MD Sep 11, 2025 17:10
[2025-09-11 17:04] VITALS: BP 115/67; PULSE 68; RESP 16; TEMP 98.5; O2SAT 97
== END 2025-09-11 20:20 | disposition home or self-care (01) | DRG 690 ==
LOC: ER 12:09 → OVERFLOW 21:30 → TELE-EAST 23:06 → EAST 09-09 15:14
PROVIDERS: ADMIT Internal Medicine Geriatric Medicine; ATTEND Internal Medicine Geriatric Medicine
DX: N39.0 Urinary tract infection, site not specified (principal); E87.0 Hyperosmolality and hypernatremia; G40.409 Other generalized epilepsy and epileptic syndromes, not intractable, without status epilepticus; I10 Essential (primary) hypertension; K76.0 Fatty (change of) liver, not elsewhere classified; E11.9 Type 2 diabetes mellitus without complications; N20.0 Calculus of kidney; E87.6 Hypokalemia; F41.9 Anxiety disorder, unspecified; R32 Unspecified urinary incontinence; I25.9 Chronic ischemic heart disease, unspecified; Z90.710 Acquired absence of both cervix and uterus; G43.109 Migraine with aura, not intractable, without status migrainosus; Z81.8 Family history of other mental and behavioral disorders; Z82.3 Family history of stroke; Z82.49 Family history of ischemic heart disease and other diseases of the circulatory system; Z83.3 Family history of diabetes mellitus; Z90.49 Acquired absence of other specified parts of digestive tract; Z79.899 Other long term (current) drug therapy
CPT/HCPCS: 36415; 70450; 71045; 74176; 80048; 80053; 80164; 80307; 80320; 81001; 83036; 83605; 83735; 83880; 84132; 84443; 85025; 87040; 87086; 87426; 87804; 96361; 96365; 96367; 96375; G0378; J2405; J3480